=== PATIENT | male | born 1960 | race Caucasian/White ===

== ENCOUNTER 2017-10-17 13:11 | Emergency (ER) | payer MEDICARE ==
--- NOTE | 2017-10-17 13:45 | ED ---
Lower Extremity Injury HPI - General Chief Complaint: Extremity Injury, Lower Stated Complaint: Ankle pain Time Seen by Provider: 10/17/17 13:31 Source: RN notes reviewed, old records reviewed - History of Present Illness Initial Comments: This patient is a 57-year-old male presents emergency department today chief complaint of continued swelling in his right ankle. Patient reports that he tripped and fell approximately a week ago. He has a right knee replacement, he reports that his knee buckled, causing him to fall. He states that he rolled his ankle at that time. Patient reports that since that time he's been having some pain with ambulation, is concerned because the swelling is continue to persist in his ankle and foot. He reports he has range of motion of the toes. He denies any posterior calf pain. Denies any specific knee pain at this time. Patient denies any fever or chills, chest pain, shortness breath, nausea, vomiting. Patient has a history of sleep apnea, Diabetes, hypertension, hyperlipidemia, neuropathy. Patient reports he has not been using his sleep apnea machine for the past few months. He does report she's been somewhat fatigued since he has not been using it. - Related Data Home Medications Medication Instructions Recorded Confirmed Cyclobenzaprine [Flexeril] 10 mg pe PO HS 10/11/14 10/17/17 Glimepiride [Amaryl] 2 mg PO BID 10/11/14 10/17/17 amLODIPine [Norvasc] 5 mg PO BID 10/11/14 10/17/17 metFORMIN HCL [Glucophage] 500 mg PO BID 10/11/14 10/17/17 traMADol HCL [traMADol HCL ER] 100 mg PO BID 10/11/14 10/17/17 Cholecalciferol [Vitamin D3] 2,000 unit PO DAILY 10/21/16 10/17/17 Hydrochlorothiazide 25 mg PO QAM 10/21/16 10/17/17 Simvastatin [Zocor] 20 mg PO HS 10/21/16 10/17/17 Gabapentin [Neurontin] 400 mg PO BID 10/23/16 10/17/17 Naproxen [Naprosyn] 500 mg PO DAILY 10/17/17 10/17/17 Previous Rx's Medication Instructions Recorded Ibuprofen [Motrin] 600 mg PO Q8HR PRN #12 tab 10/17/17 Allergies Allergy/AdvReac Type Severity Reaction Status Date / Time No Known Allergies Allergy Verified 10/23/16 10:04 Review of Systems ROS Statement: Those systems with pertinent positive or pertinent negative responses have been documented in the HPI. ROS Other: All systems not noted in ROS Statement are negative. Past Medical History Past Medical History: Chest Pain / Angina, Diabetes Mellitus, Hyperlipidemia, Hypertension, Osteoarthritis (OA), Pneumonia, Sleep Apnea/CPAP/BIPAP Additional Past Medical History / Comment(s): DM 2, History of Any Multi-Drug Resistant Organisms: None Reported Past Surgical History: Hernia Repair, Joint Replacement, Orthopedic Surgery Additional Past Surgical History / Comment(s): surgery on left hand pointer finger; R knee replacement Past Anesthesia/Blood Transfusion Reactions: No Reported Reaction Past Psychological History: No Psychological Hx Reported Smoking Status: Never smoker Past Alcohol Use History: Occasional Past Drug Use History: None Reported - Past Family History Father Family Medical History: AICD/Pacemaker Mother Family Medical History: No Reported History, Renal Disease Brother(s) Family Medical History: No Reported History Sister(s) Family Medical History: No Reported History Son(s) Family Medical History: No Reported History Daughter(s) Family Medical History: No Reported History General Exam - General Exam Comments Initial Comments: This is a 57-year-old male. No distress. General appearance: alert, in no apparent distress Head exam: Present: atraumatic, normocephalic, normal inspection Eye exam: Present: normal appearance, PERRL, EOMI. Absent: scleral icterus, conjunctival injection, periorbital swelling ENT exam: Present: normal exam, mucous membranes moist Neck exam: Present: normal inspection. Absent: tenderness, meningismus, lymphadenopathy Respiratory exam: Present: normal lung sounds bilaterally Cardiovascular Exam: Present: regular rate, normal rhythm, normal heart sounds. Absent: systolic murmur, diastolic murmur, rubs, gallop, clicks GI/Abdominal exam: Present: soft, normal bowel sounds. Absent: distended, tenderness, guarding, rebound, rigid Right Lower Leg exam: Present: normal inspection, full ROM Ankle exam: Present: full ROM (pain with inversion and eversion of the ankle. Patient does have some swelling noted.), swelling. Absent: normal inspection Foot/Toe exam: Present: normal inspection, full ROM Neurovascular tendon exam: Present: no vascular compromise Gait: observed and normal Back exam: Present: normal inspection Neurological exam: Present: alert, oriented X3, CN II-XII intact Course Vital Signs 10/17/17 13:49 Temperature 97.9 F Pulse Rate 88 Respiratory 18 Rate Blood Pressure 130/76 O2 Sat by Pulse 96 Oximetry Procedures - Orthopedic Splinting/Casting Injury #1 Side: right Lower Extremity Injury Location: ankle Lower Extremity Immobilizer: AirCast, Carl wrap Other Orthopedic Equipment: crutches Medical Decision Making - Medical Decision Making This patient is a 57-year-old male presents emergency department today chief complaint of continued swelling in his right ankle. Patient reports that he tripped and fell approximately a week ago. He has a right knee replacement, he reports that his knee buckled, causing him to fall. He states that he rolled his ankle at that time. Patient reports that since that time he's been having some pain with ambulation, is concerned because the swelling is continue to persist in his ankle and foot. He reports he has range of motion of the toes. patient has full range of motion of the toes, ankle and foot. He did have some tenderness over the lateral malleolus. Patient's lab and x-ray was reviewed and shows no acute abnormalities. Evidence of lateral foot swelling. Also evidence of peripheral 2-year-old disease. I did palpate a dorsalis pedis pulse. At this time I'll treat the patient for severe ankle sprain possible tear. Patient will be discharged with a temperature medication crutches. Discussed risks and ice and elevate the area. Discussed following up with primary care provider regards to his chronic fatigue issues. Patient agrees treatment plan will comply. Return parameters were discussed. - Radiology Data Radiology results: report reviewed Generalized right ankle soft tissue swelling, greatest laterally. No acute fracture dislocation of the right foot or ankle. Hindfoot and midfoot and forefoot arthropathy. Moderate Achilles and plantar and apply heel spurs. Peripheral arterial sclerosis. Present underlying peripheral arterial disease. Disposition Clinical Impression: Sprain of right ankle Disposition: HOME SELF-CARE Condition: Good Instructions: Ankle Sprain (ED) Additional Instructions: patient must rest, ice, and elevate extremity. Ambulate with crutches. Follow- up with autism motor specialist. Ulcerative appointment with her primary care provider insulin specialist regards to her sleep seen. Return to emergency department if any alarming signs or symptoms occur. Prescriptions: Ibuprofen [Motrin] 600 mg PO Q8HR PRN #12 tab PRN Reason: Pain Referrals: Colin Emery MD [Primary Care Provider] - 1-2 days Time of Disposition: 14:26
[2017-10-17 14:06] VITALS: BP 130/76; PULSE 88; RESP 18; TEMP 97.9
--- NOTE | 2017-10-17 14:17 | XR ---
EXAMINATION TYPE: XR ankle complete RT, XR foot limited RT DATE OF EXAM: 10/17/2017 CLINICAL HISTORY: Fall 9 days ago with subsequent pain and swelling of the right ankle and foot. TECHNIQUE: Frontal, lateral and oblique images of the right ankle and foot are obtained. COMPARISON: None. FINDINGS: There is no acute fracture/dislocation evident in the right ankle. The ankle mortise appe ars within normal limits. Small anterior and posterior osteophytes are seen of the distal tibia on t he lateral image. Mild osteophytic spurring is also seen at the talonavicular joint dorsally. Moderat e plantar and Achilles enthesophytes are seen. Mild soft tissue swelling of the ankle joint is most p ronounced laterally. Incidentally noted is moderate small vessel atherosclerosis of the right ankle/f oot. There is no acute fracture or dislocation evident in the right foot. The joint spaces in the right f oot are preserved. Overlying soft tissue is unremarkable. Accessory ossicle is incidentally noted a djacent to the cuboid bone. Osteophytic spurring is seen at the distal interphalangeal joints and fir st metatarsal phalangeal joint. IMPRESSION: 1. Generalized right ankle soft tissue swelling, greatest laterally, with no acute fracture or disloc ation in the right ankle or foot. 2. Mild hindfoot, midfoot, and forefoot arthropathy. 3. Moderate Achilles and plantar enthesophyte/heel spurs. 4. Peripheral arterial atherosclerosis may represent underlying peripheral arterial disease.
== END 2017-10-17 14:46 | disposition home or self-care (01) ==
LOC: EC 13:11
DX: S93.401A Sprain of unspecified ligament of right ankle, initial encounter (principal); E11.9 Type 2 diabetes mellitus without complications; E78.5 Hyperlipidemia, unspecified; I10 Essential (primary) hypertension; M19.90 Unspecified osteoarthritis, unspecified site; G47.30 Sleep apnea, unspecified; Z99.89 Dependence on other enabling machines and devices; Z79.1 Long term (current) use of non-steroidal anti-inflammatories (NSAID); Z79.84 Long term (current) use of oral hypoglycemic drugs; Z79.899 Other long term (current) drug therapy; Z96.651 Presence of right artificial knee joint; W01.0XXA Fall on same level from slipping, tripping and stumbling without subsequent striking against object, initial encounter
CPT/HCPCS: 73610; 73620; 99284; L4350

== ENCOUNTER → 2020-07-21 | Day surgery (SDC) | payer MEDICARE ==
[2020-07-19 12:01] VITALS: BMI 38.9
[~2020-07-21] MED LIST: ALPRAZolam 0.25 MG TAB PO PRN; ALPRAZolam 0.5 MG TAB PO PRN; ASPIRIN 325 MG TAB PO STA; HEPARIN SODIUM 1,000 UN/ML (10ML VL) IV ONE; HEPARIN SODIUM 1,000 UN/ML (10ML VL) ONE; IOPAMIDOL-370 125ML BTL INJ ONE; LIDOCAINE 1% INJ 10MG/ML (20 ML MDV) ONE; LIDOCAINE 1% INJ 10MG/ML (20 ML MDV) SQ ONE; MIDAZOLAM 2 MG/2 ML VIAL IVP ONE; NITROGLYCERIN SL TABS 0.4 MG TAB SUBLINGUAL PRN; RX INFO: IV CONTRAST WAS GIVEN 1 EACH MISC MISCELLANE PRN; SODIUM CHLORIDE 0.9% 1,000 ML IV ONE; SODIUM CHLORIDE 0.9% 1,000 ML IV SCH; SODIUM CHLORIDE 0.9% 1,000 ML in EMPTY BAG 1 BAG IV ONE; VERAPAMIL 2.5 MG/ML 2 ML AMP ONE; VERAPAMIL SYRINGE (5 MG/10 ML) INTRAARTER ONE
[2020-07-21 10:47] LABS: Glucose,Whole Blood 211 mg/dL (75-99)
[2020-07-21 10:49] VITALS: RESP 16; TEMP 98
[2020-07-21 11:07] LABS: Calcium 9.6 mg/dL (8.4-10.2); Potassium 4.8 mmol/L (3.5-5.1)
[2020-07-21 11:23] LABS: HCT 50.3 % (39.0-53.0); HGB 16.8 gm/dL (13.0-17.5); MCH 31.5 pg (25.0-35.0); MCHC 33.5 g/dL (31.0-37.0); Mean Platelet Volume 7.6; Platelet Count 234 k/uL (150-450); RBC 5.35 m/uL (4.30-5.90); RDW 13.8 % (11.5-15.5)
[2020-07-21 11:43] LABS: Eosinophils # (M) 0.27 k/uL (0-0.7); Lymphocytes # (M) 1.62 k/uL (1.0-4.8); Monocytes # (M) 0.27 k/uL (0-1.0); Neutrophils # (M) 6.84 k/uL (1.3-7.7); Neutrophils % (M) 76 %; Nucleated Red Blood Cells 0 /100 WBC (0-0); Total Cells Counted 100
[2020-07-21 17:42] VITALS: BP 147/73; PULSE 54
--- NOTE | 2020-07-21 20:17 | CC ---
CARDIAC CATHETERIZATION REPORT DATE OF SERVICE: July 21, 2020 PERFORMING PHYSICIAN: Darryn Velazco MD. PROCEDURE PERFORMED: 1. Selective right and left coronary angiogram. 2. Left heart catheterization. INDICATION: This is a 60-year-old gentleman with diabetes and hypertension and dyslipidemia who was going to undergo hip surgery in the next few weeks. He underwent myocardial perfusion imaging stress test and that revealed a large anterior fixed defect with an echocardiogram showing cardiomyopathy with EF between 40-45 percent with anterior wall motion abnormalities concerning for severe underlying coronary artery disease. Given his multiple risk factors and the abnormalities on noninvasive testing, I decided to pursue with a heart catheterization for definitive diagnosis. APPROACH: Right radial artery. COMPLICATION: None. LEVEL OF SEDATION: Moderate with a sedation length of 16 minutes. PROCEDURE DESCRIPTION: After obtaining an informed consent, the patient was brought to the cardiac laboratory machinist. The right radial artery was cannulated using micropuncture technique, the micropuncture wire passed easily. Then, I placed a 6-Kinyarwanda sheath at the right radial artery. I gave the patient 2 mg of verapamil IA and 10,000 units of heparin IV. Subsequently, I did perform selective right and left coronary angiogram with JR4 and JL3.5 catheters. Left heart catheterization was performed using the JL 3.5 catheter which crossed the aortic valve. Then I did pullback across the valve. The procedure was completed without any complications. SELECTIVE CORONARY ANGIOGRAM: 1. The right coronary artery is a large caliber vessel. It is a dominant vessel. The RCA is calcified. The RCA has mild disease only distally. Then bifurcates into PDA and PLV branches. 2. The left main is calcified and with mild disease only. It bifurcates into left circumflex, ramus intermedius, and left anterior descending artery. 3. The left circumflex is a large caliber vessel. The left circumflex is chronically occluded in the midportion. 4. The ramus intermedius is a moderate caliber vessel with mild disease only. 5. The LAD: The LAD is chronically occluded in the proximal to mid portion. The LAD is extremely calcified as well. HEMODYNAMICS: The LVEDP was about 18 mmHg without significant gradient across aortic valve. CONCLUSION: 1. Calcified right and left coronary system. 2. 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 The LAD is extremely calcified. 3. Chronic total occlusion of the proximal to mid left circumflex coronary artery. 4. Elevated left ventricular end-diastolic pressure. POSTPROCEDURE MANAGEMENT: Given the above anatomy and the uncertainty about the viability of the anterior wall, I am going to maximize medical treatment at this point and follow up with the patient in the office. I am going to obtain an MRI to assess for viability in the anterior wall. Further recommendations to follow that test. AIDEE / NOREENN: [id number] /
== END ==
LOC: CATHCVL 10:22
PROVIDERS: ATTEND Internal Medicine Interventional Cardiology
DX: I42.9 Cardiomyopathy, unspecified (principal); I25.10 Atherosclerotic heart disease of native coronary artery without angina pectoris; I25.84 Coronary atherosclerosis due to calcified coronary lesion; I25.82 Chronic total occlusion of coronary artery; E78.00 Pure hypercholesterolemia, unspecified; E11.9 Type 2 diabetes mellitus without complications; I10 Essential (primary) hypertension; E78.49 Other hyperlipidemia; Z79.82 Long term (current) use of aspirin; Z79.899 Other long term (current) drug therapy
CPT/HCPCS: 93458; 80048; 85025; C1769; C1894; J2250; J2001; J1644; Q9967

== ENCOUNTER 2021-10-20 15:34 | Inpatient (IN) | payer MEDICARE ==
[2021-10-20] MEDS ORDERED: SODIUM CHLORIDE 0.9% 1,000 ML IV STA (15:42)
[2021-10-20 15:56] LABS: Glucose,Whole Blood 275 mg/dL (75-99)
--- NOTE | 2021-10-20 16:08 | ED ---
General Adult HPI - General Chief complaint: Weakness Stated complaint: Dizziness,Low BP Time Seen by Provider: 10/20/21 15:42 Source: patient Mode of arrival: ambulatory Limitations: no limitations - History of Present Illness Initial comments: Dictation was produced using [employer] dictation software. please excuse any grammatical, word or spelling errors. Chief Complaint: Patient is 61-year-old male presents to the emergency departm ent for excessive somnolence, low blood pressure History of Present Illness: Patient is a 61-year-old male who has past medical history of chest pain, diabetes, dyslipidemia and hypertension. Patient presents emergency department for low blood pressure. Patient's been feeling lethargic and very sleepy over the last 48 hours. Complains of a mild cramp to his left shoulder they states chronic may be slightly worse. Patient states he's been sleeping a lot over the last 48 hours. He checked his blood pressure today is found to be low with systolics measuring within the 70s and 80s millimeters mercury. Decided come to the emergency department. Patient has no significant pain complaints. He has had some diarrhea. No chest pain. No shortness of breath. Lack of bloody stools. Patient is not taking anticoagulation medications. Medications for diabetes. He is insulin- dependent. The ROS documented in this emergency department record has been reviewed and confirmed by me. Those systems with pertinent positive or negative responses have been documented in the HPI. All other systems are other negative and/or noncontributory. PHYSICAL EXAM: General Impression: Alert and oriented x3, not in acute distress, marshall pale skin HEENT: Normocephalic atraumatic, extra-ocular movements intact, pupils equal and reactive to light bilaterally, mucous membranes moist. Cardiovascular: Heart regular rate and rhythm Chest: Able to complete full sentences, no retractions, no tachypnea Abdomen: abdomen soft, non-tender, non-distended, no organomegaly Musculoskeletal: Pulses present and equal in all extremities, no peripheral edema Motor: no focal deficits noted Neurological: CN II-XII grossly intact, no focal motor or sensory deficits noted Skin: Intact with no visualized rashes Psych: Normal affect and mood ED course: 61-year-old male presents emergency department for low blood pressure. Signs upon arrival shows blood pressure of 88/63, rest of vital signs within acceptable limits. Repeat blood pressures while in trauma bay #1 results with similarly low blood pressure. Chart review was performed. She has history of severe coronary artery disease. It's of the heart are akinetic on echocardiogram. Value by cardiothoracic surgery. Patient had a cardiac catheterization performed on 08/02/2020 showing calcified left coronary system with chronic total occlusion to the mid LAD. Discussed with patient after EMR chart review if he ever had his coronary artery disease managed since last year. He states he hasn't because of some personal issues. still continues to deny chest pain and/or shortness of breath. Putting care bedside ultrasound was attempted however could not get good cardiac views. EKG interpretation: Ventricular rate 69, sinus rhythm,. 176, QRS 112, QTc 467. No [place] prolongation, no QTC prolongation, no ST or T-wave changes noted. Old EKG for comparison. Overall, this EKG is unremarkable Case is discussed with cardiology, Dr. Ku. He evaluated the patient at bedside. He is in agreement that ankle is appropriate to order on a stat basis. Laboratory evaluation obtained. Mild leukocytosis of 13.6 concerning for stress leukocytosis. Coag panel is unremarkable. Metabolic panel is within reasonable limits. Lactic acidosis slightly elevated at 2.3. Troponin 0.028 with a brain natruretic peptide of 1710. Chest x-ray is nonacute. Pending echocardiogram read. Dr. Ku believes that patient has mild heart failure. At this point is unclear what caused the patient's hypotension. His labs seems to be within reasonable limits. His blood pressures improved with fluids. His labs do not suggest that he is significantly dehydrated. His renal markers appear to be not significantly elevated. Reevaluate at bedside at 7:45 PM found to be in stable medical condition. Sitting elderly and has no acute symptoms. Patient continues to deny any chest pain or shortness of breath - Related Data Home Medications Medication Instructions Recorded Confirmed Aspirin [Adult Low Dose Aspirin EC] 81 mg PO DAILY 07/19/20 10/20/21 Baclofen 10 mg PO BID 07/19/20 10/20/21 Ergocalciferol (Vitamin D2) 1,250 mcg PO Q30D 07/19/20 10/20/21 [Vitamin D2 (50,000 Iu)] Gabapentin 600 mg PO BID 07/19/20 10/20/21 Glimepiride [Amaryl] 4 mg PO BID 07/19/20 10/20/21 Hydrochlorothiazide 12.5 mg PO DAILY 07/19/20 10/20/21 [hydroCHLOROthiazide] amLODIPine BESYLATE 5 mg PO DAILY 07/19/20 10/20/21 lisinopriL [Zestril] 5 mg PO DAILY 07/19/20 10/20/21 Atorvastatin Calcium [Lipitor] 40 mg PO DAILY 10/20/21 10/20/21 Cholecalciferol [Vitamin D3 (25 50 mcg PO DAILY 10/20/21 10/20/21 Mcg = 1000 Iu)] Insulin Glargine [Lantus Vial] 24 unit SQ DAILY 10/20/21 10/20/21 Metoprolol Succinate [Toprol XL] 25 mg PO DAILY 10/20/21 10/20/21 Spironolactone [Aldactone] 25 mg PO DAILY 10/20/21 10/20/21 traMADol HCL 100 mg PO TID 10/20/21 10/20/21 Allergies Allergy/AdvReac Type Severity Reaction Status Date / Time No Known Allergies Allergy Verified 10/20/21 16:35 Review of Systems ROS Statement: Those systems with pertinent positive or pertinent negative responses have been documented in the HPI. ROS Other: All systems not noted in ROS Statement are negative. Past Medical History Past Medical History: Chest Pain / Angina, Diabetes Mellitus, Hyperlipidemia, Hypertension, Osteoarthritis (OA), Pneumonia, Sleep Apnea/CPAP/BIPAP Additional Past Medical History / Comment(s): DM 2, History of Any Multi-Drug Resistant Organisms: None Reported Past Surgical History: Hernia Repair, Joint Replacement, Orthopedic Surgery Additional Past Surgical History / Comment(s): surgery on left hand pointer finger; R knee replacement, removal left second toe Past Anesthesia/Blood Transfusion Reactions: No Reported Reaction Past Psychological History: No Psychological Hx Reported Smoking Status: Never smoker Past Alcohol Use History: None Reported Past Drug Use History: None Reported - Past Family History Father Family Medical History: AICD/Pacemaker Mother Family Medical History: No Reported History, Renal Disease Brother(s) Family Medical History: No Reported History Sister(s) Family Medical History: No Reported History Son(s) Family Medical History: No Reported History Daughter(s) Family Medical History: No Reported History General Exam Limitations: no limitations Course Vital Signs 10/20/21 10/20/2110/20/22 15:36 16:15 16:49 Temperature 99.5 F Pulse Rate 74 65 72 Respiratory 16 18 18 Rate Blood Pressure 88/63 86/55 106/62 O2 Sat by Pulse 96 94 L 96 Oximetry 10/20/21 10/20/21 17:45 19:14 Temperature Pulse Rate 56 L 60 Respiratory 16 18 Rate Blood Pressure 97/59 117/67 O2 Sat by Pulse 95 95 Oximetry Medical Decision Making - Lab Data Result diagrams: 10/20/21 16:05 10/20/21 16:05 Lab Results 10/20/21 10/20/21 10/20/21 Range/Units 15:52 16:05 16:05 WBC 13.6 H (3.8-10.6) k/uL RBC 4.70 (4.30-5.90) m/uL Hgb 14.4 (13.0-17.5) gm/dL Hct 44.3 (39.0-53.0) % MCV 94.2 (80.0-100.0) fL MCH 30.6 (25.0-35.0) pg MCHC 32.5 (31.0-37.0) g/dL RDW 13.1 (11.5-15.5) % Plt Count 224 (150-450) k/uL MPV 8.6 Neutrophils % (Manual) 89 % Band Neuts % (Manual) 1 % Lymphocytes % (Manual) 2 % Monocytes % (Manual) 8 % Neutrophils # BOTTLE GAUGER Neutrophils # (Manual) 12.20 H (1.3-7.7) k/uL Lymphocytes # (Manual) 0.27 L (1.0-4.8) k/uL Monocytes # (Manual) 1.09 H (0-1.0) k/uL Nucleated RBCs 0 (0-0) /100 WBC Manual Slide Review Performed RBC Morphology Normal PT 10.8 (9.0-12.0) sec INR 1.0 (<1.2) APTT 23.8 (22.0-30.0) sec Sodium (137-145) mmol/L Potassium (3.5-5.1) mmol/L Chloride (98-107) mmol/L Carbon Dioxide (22-30) mmol/L Anion Gap mmol/L BUN (9-20) mg/dL Creatinine (0.66-1.25) mg/dL Est GFR (CKD-EPI)AfAm (>60 ml/min/1.73 sqM) Est GFR (CKD-EPI)NonAf (>60 ml/min/1.73 sqM) Glucose (74-99) mg/dL POC Glucose (mg/dL) 275 H (75-99) mg/dL POC Glu Body Make Up Artist ID Carrie Greenberg Lactic Ac Sepsis Rflx Plasma Lactic Acid Zackary (0.7-2.0) mmol/L Calcium (8.4-10.2) mg/dL Magnesium (1.6-2.3) mg/dL Total Bilirubin (0.2-1.3) mg/dL AST (17-59) U/L ALT (4-49) U/L Alkaline Phosphatase (38-126) U/L Troponin I (0.000-0.034) ng/mL NT-Pro-B Natriuret Pep pg/mL Total Protein (6.3-8.2) g/dL Albumin (3.5-5.0) g/dL Lipase (23-300) U/L Coronavirus (PCR) (Not Detectd) Blood Type Blood Type Confirm Blood Type Recheck Bld Type Recheck Status Antibody Screen Spec Expiration Date 10/20/21 10/20/21 10/20/21 Range/Units 16:05 16:05 16:05 WBC (3.8-10.6) k/uL RBC (4.30-5.90) m/uL Hgb (13.0-17.5) gm/dL Hct (39.0-53.0) % MCV (80.0-100.0) fL MCH (25.0-35.0) pg MCHC (31.0-37.0) g/dL RDW (11.5-15.5) % Plt Count (150-450) k/uL MPV Neutrophils % (Manual) % Band Neuts % (Manual) % Lymphocytes % (Manual) % Monocytes % (Manual) % Neutrophils # Neutrophils # (Manual) (1.3-7.7) k/uL Lymphocytes # (Manual) (1.0-4.8) k/uL Monocytes # (Manual) (0-1.0) k/uL Nucleated RBCs (0-0) /100 WBC Manual Slide Review RBC Morphology PT (9.0-12.0) sec INR (<1.2) APTT (22.0-30.0) sec Sodium 133 L (137-145) mmol/L Potassium 4.6 (3.5-5.1) mmol/L Chloride 96 L (98-107) mmol/L Carbon Dioxide 24 (22-30) mmol/L Anion Gap 13 mmol/L BUN 22 H (9-20) mg/dL Creatinine 1.61 H (0.66-1.25) mg/dL Est GFR (CKD-EPI)AfAm 54 (>60 ml/min/1.73 sqM) Est GFR (CKD-EPI)NonAf 46 (>60 ml/min/1.73 sqM) Glucose 295 H (74-99) mg/dL POC Glucose (mg/dL) (75-99) mg/dL POC Glu Body Make Up Artist ID Lactic Ac Sepsis Rflx Plasma Lactic Acid Zackary 2.3 H* (0.7-2.0) mmol/L Calcium 9.2 (8.4-10.2) mg/dL Magnesium 1.5 L (1.6-2.3) mg/dL Total Bilirubin 1.1 (0.2-1.3) mg/dL AST 22 (17-59) U/L ALT 19 (4-49) U/L Alkaline Phosphatase 83 (38-126) U/L Troponin I 0.028 (0.000-0.034) ng/mL NT-Pro-B Natriuret Pep pg/mL Total Protein 7.3 (6.3-8.2) g/dL Albumin 3.9 (3.5-5.0) g/dL Lipase 146 (23-300) U/L Coronavirus (PCR) (Not Detectd) Blood Type Blood Type Confirm Blood Type Recheck Bld Type Recheck Status Antibody Screen Spec Expiration Date 10/20/21 10/20/21 10/20/21 Range/Units 16:05 16:05 16:06 WBC (3.8-10.6) k/uL RBC (4.30-5.90) m/uL Hgb (13.0-17.5) gm/dL Hct (39.0-53.0) % MCV (80.0-100.0) fL MCH (25.0-35.0) pg MCHC (31.0-37.0) g/dL RDW (11.5-15.5) % Plt Count (150-450) k/uL MPV Neutrophils % (Manual) % Band Neuts % (Manual) % Lymphocytes % (Manual) % Monocytes % (Manual) % Neutrophils # Neutrophils # (Manual) (1.3-7.7) k/uL Lymphocytes # (Manual) (1.0-4.8) k/uL Monocytes # (Manual) (0-1.0) k/uL Nucleated RBCs (0-0) /100 WBC Manual Slide Review RBC Morphology PT (9.0-12.0) sec INR (<1.2) APTT (22.0-30.0) sec Sodium (137-145) mmol/L Potassium (3.5-5.1) mmol/L Chloride (98-107) mmol/L Carbon Dioxide (22-30) mmol/L Anion Gap mmol/L BUN (9-20) mg/dL Creatinine (0.66-1.25) mg/dL Est GFR (CKD-EPI)AfAm (>60 ml/min/1.73 sqM) Est GFR (CKD-EPI)NonAf (>60 ml/min/1.73 sqM) Glucose (74-99) mg/dL POC Glucose (mg/dL) (75-99) mg/dL POC Glu Body Make Up Artist ID Lactic Ac Sepsis Rflx Plasma Lactic Acid Zackary (0.7-2.0) mmol/L Calcium (8.4-10.2) mg/dL Magnesium (1.6-2.3) mg/dL Total Bilirubin (0.2-1.3) mg/dL AST (17-59) U/L ALT (4-49) U/L Alkaline Phosphatase (38-126) U/L Troponin I (0.000-0.034) ng/mL NT-Pro-B Natriuret Pep 1710 pg/mL Total Protein (6.3-8.2) g/dL Albumin (3.5-5.0) g/dL Lipase (23-300) U/L Coronavirus (PCR) Not Detected (Not Detectd) Blood Type AB Positive Blood Type Confirm Blood Type Recheck No Previous Record Bld Type Recheck Status CABO Indicated Antibody Screen NEGATIVE Spec Expiration Date 10/23/2021230410/20/21 10/20/21 Range/Units 16:10 16:50 WBC (3.8-10.6) k/uL RBC (4.30-5.90) m/uL Hgb (13.0-17.5) gm/dL Hct (39.0-53.0) % MCV (80.0-100.0) fL MCH (25.0-35.0) pg MCHC (31.0-37.0) g/dL RDW (11.5-15.5) % Plt Count (150-450) k/uL MPV Neutrophils % (Manual) % Band Neuts % (Manual) % Lymphocytes % (Manual) % Monocytes % (Manual) % Neutrophils # Neutrophils # (Manual) (1.3-7.7) k/uL Lymphocytes # (Manual) (1.0-4.8) k/uL Monocytes # (Manual) (0-1.0) k/uL Nucleated RBCs (0-0) /100 WBC Manual Slide Review RBC Morphology PT (9.0-12.0) sec INR (<1.2) APTT (22.0-30.0) sec Sodium (137-145) mmol/L Potassium (3.5-5.1) mmol/L Chloride (98-107) mmol/L Carbon Dioxide (22-30) mmol/L Anion Gap mmol/L BUN (9-20) mg/dL Creatinine (0.66-1.25) mg/dL Est GFR (CKD-EPI)AfAm (>60 ml/min/1.73 sqM) Est GFR (CKD-EPI)NonAf (>60 ml/min/1.73 sqM) Glucose (74-99) mg/dL POC Glucose (mg/dL) (75-99) mg/dL POC Glu Body Make Up Artist ID Lactic Ac Sepsis Rflx Y Plasma Lactic Acid Zackary (0.7-2.0) mmol/L Calcium (8.4-10.2) mg/dL Magnesium (1.6-2.3) mg/dL Total Bilirubin (0.2-1.3) mg/dL AST (17-59) U/L ALT (4-49) U/L Alkaline Phosphatase (38-126) U/L Troponin I (0.000-0.034) ng/mL NT-Pro-B Natriuret Pep pg/mL Total Protein (6.3-8.2) g/dL Albumin (3.5-5.0) g/dL Lipase (23-300) U/L Coronavirus (PCR) (Not Detectd) Blood Type Blood Type Confirm AB Positive Blood Type Recheck Bld Type Recheck Status Antibody Screen Spec Expiration Date Critical Care Time Critical Care Time: Yes Total Critical Care Time: 33 Disposition Clinical Impression: Hypotension Disposition: ADMITTED IP TO THIS HOSP Condition: Critical Referrals: Lewis Wing MD [Primary Care Provider] - 1-2 days
[2021-10-20 16:31] LABS: Albumin 3.9 g/dL (3.5-5.0); Calcium 9.2 mg/dL (8.4-10.2); Magnesium 1.5 mg/dL (1.6-2.3); Potassium 4.6 mmol/L (3.5-5.1); Total Bilirubin 1.1 mg/dL (0.2-1.3); Total Protein 7.3 g/dL (6.3-8.2)
[2021-10-20 16:34] LABS: Partial Thromboplastin Time 23.8 sec (22.0-30.0); Prothrombin Time 10.8 sec (9.0-12.0)
[2021-10-20 16:38] LABS: HCT 44.3 % (39.0-53.0); HGB 14.4 gm/dL (13.0-17.5); MCH 30.6 pg (25.0-35.0); MCHC 32.5 g/dL (31.0-37.0); MCV 94.2 fL (80.0-100.0); Mean Platelet Volume 8.6; Platelet Count 224 k/uL (150-450); RDW 13.1 % (11.5-15.5); WBC 13.6 k/uL (3.8-10.6)
[2021-10-20 17:09] LABS: Band Neutrophils % 1 %; Lymphocytes # (M) 0.27 k/uL (1.0-4.8); Monocytes # (M) 1.09 k/uL (0-1.0); Neutrophils % (M) 89 %; Nucleated Red Blood Cells 0 /100 WBC (0-0); Total Cells Counted 100
--- NOTE | 2021-10-20 18:19 | XR ---
EXAMINATION TYPE: XR chest 1V portable DATE OF EXAM: 10/20/2021 6:10 PM COMPARISON: Radiograph 02/22/2013 CLINICAL INDICATION:Male, 61 years old with history of hypotension; , TECHNIQUE: Frontal view of the chest. FINDINGS: Lungs/Pleura: Low lung volumes are present. There is no evidence of pleural effusion, focal consolida tion, or pneumothorax. Pulmonary vascularity: Unremarkable. Heart/mediastinum: Cardiomediastinal silhouette is unremarkable. Musculoskeletal: No acute osseous pathology. IMPRESSION: No acute cardiopulmonary disease/process.
[2021-10-20] MEDS ORDERED: ACETAMINOPHEN TAB 325 MG TAB PO PRN (20:00)
[2021-10-20] MEDS ORDERED: NALOXONE 0.4 MG/ML 1 ML VIAL IV PRN (20:00)
[2021-10-20] MEDS: SODIUM CHLORIDE 0.9% 1,000 ML IV SCH (20:10)
[2021-10-20 23:39] LABS: Appearance,Urine Cloudy (Clear); Bacteria,Urine Rare /hpf; Bilirubin,Urine Negative (Negative); Blood,Urine Trace (Negative); Cellular Casts,Urine 1 /lpf (0); Color,Urine Yellow; Glucose,Urine (UA) 3+ (Negative); Hyaline Casts,Urine 30 /lpf (0-2); Ketones,Urine Negative (Negative); Leukocyte Esterase,Urine Large (Negative); Mucus,Urine Occasional /hpf; Nitrite,Urine Negative (Negative); Protein,Urine Trace (Negative); RBC,Urine 7 /hpf (0-5); Specific Gravity,Urine 1.019 (1.001-1.035); Squamous Epithelial Cell,Urine 1 /hpf (0-4); WBC,Urine 30 /hpf (0-5)
[2021-10-21 10:11] LABS: Glucose,Whole Blood 220 mg/dL (75-99)
[2021-10-21] MEDS: lisinopriL 10 MG TAB PO SCH (11:15)
[2021-10-21] MEDS: INSULIN DETEMIR (LEVEMIR) 100 UNIT/ML SYR SQ SCH (11:18)
[2021-10-21] MEDS: ASPIRIN 81 MG PO SCH (11:19)
[2021-10-21] MEDS: ATORVASTATIN 40 MG TAB PO SCH (11:19)
--- NOTE | 2021-10-21 11:47 | P.HPIM ---
History of Present Illness H&P Date: 10/21/21 Chief Complaint: Hypotension/CAD HISTORY OF PRESENT ILLNESS: This is a 61-year-old male one of my patient with a previous medical history significant for hypertension and hypertensive cardiovascular disease, hyperlipidemia, diabetes mellitus type 2 with hyperglycemia, chronic kidney disease stage IIIA, PAD, diabetic polyneuropathy, coronary artery disease status post left heart catheterization that was done in July 2020 that showed mild disease of the RCA and the chronic totally occluded proximal to mid LAD and chronic totally occluded left circumflex in the mid to distal portion with mild disease of the intermedius, at that time patient was supposed to go pack to have an attempt to open the LAD however the patient did not he has been following with Dr. Velazco on a regular basis, patient presented to the emergency department at [facility] yesterday because of lethargy and not able to do anything over the last 48 hours patient blood pressure was found to be extremely low at home in the low 70s over 40s so he decided to come to the emergency room for evaluation his lactic acid was slightly elevated, his troponin was negative, his EKG showed no new changes, he was slightly dehydrated his urinalysis shows hyaline casts suggestive of dehydration he was started on IV fluid resuscitation the form of normal saline and he was admitted to the hospital for evaluation by cardiology, upon evaluation of the patient there was an infected right big toe callus with bad smell coming out of it along with drainage aerobic and anaerobic culture were obtained, and the patient was started on gentamicin and Zosyn with pharmacy to dose its peak and trough, vascular surgery consultation as well as infectious disease consultation was obtained. REVIEW OF SYSTEMS: Constitutional: No documented fever, no chills, no night sweats. No weight change. positive for weakness, positive for fatigue no lethargy. No daytime sleepiness. HEENT: No headache. No blurred vision or double vision, no loss of vision. No loss of Hearing, no ringing in the ears, no dizziness. No nasal drainage or congestion. No epistaxis. No sore throat. Lungs: No shortness of breath, no cough, no sputum production. No wheezing. Reports dyspnea with activity. Cardiovascular: No chest pain, no lower extremity edema. No palpitations. No paroxysmal nocturnal dyspnea. No orthopnea. No lightheadedness or dizziness. No syncopal episodes. Abdominal: Reports no abdominal pain. No nausea, vomiting. No diarrhea. No constipation. No bloody or tarry stools reports loss of appetite. Genitourinary: No dysuria, increased frequency, urgency. No urinary retention. Musculoskeletal: No myalgias. No muscle weakness, no gait dysfunction, no frequent falls. No back pain. No neck pain. Integumentary: Right big toe infected callus, no lesions. No rash or pruritus. No unusual bruising, change of the right big toenail. Neurologic: No aphasia. No facial droop. No change in mentation. No head injury. No headache. No paralysis. No paresthesia. Psychiatric: No depression. No anxiety. No mood swings. Endocrine: abnormal blood sugars. No weight change. PAST MEDICAL HISTORY: CAD status post left heart catheterization back in July 2020 Hypertension and hypertensive cardiovascular disease. Hyperlipidemia. Diabetes mellitus type 2. Diabetic polyneuropathy. PAD. Chronic kidney disease stage IIIa Osteoarthritis PAST SURGICAL HISTORY: Left second toe amputation Right knee replacement Left index finger surgery SOCIAL HISTORY: Patient denies any history of smoking, no history of drinking or drug use or abuse he lives with his ex-. FAMILY HISTORY: Mother at age of 69 from esophageal stricture was not able to eat much and she lost a lot of weight father at age 71 from coronary artery disease and had history of diabetes as well, patient has 2 brothers one with diabetes mellitus type 2 the other one lives in [place] patient has one sister no major medical problem patient has 2 sons and one of them with Crohn disease together with spine and one daughter no major medical problems. PHYSICAL EXAMINATION: General: 61-year-old male laying down in bed in no distress. HEENT: Head is atraumatic, normocephalic, pupils were equal round reactive to light and recommendation, extraocular muscle movement were intact, sclera nonicteric, conjunctivae were pale, mucous membranes of the mouth are somewhat dry. Neck: Supple, no JVP, normal carotid upstroke bilaterally, no lymphadenopathy. Chest: Decreased breath sounds at the bases, few rhonchi, no expiratory wheezes, no chest wall tenderness, no intercostal retractions. Heart: First heart sound is normal, second heart sounds normal there is no gallop or murmur. Abdomen: Soft, nontender, nondistended, positive bowel sounds. No hepatosplenomegaly Extremities: There is no edema no calf tenderness DP +1 bilaterally, left second toe amputation Neurologic examination: Patient is awake alert and oriented X3, cranial nerves II-12 appear grossly intact, muscle power were 5 out of 5 in upper extremities and 5 out of 5 in bilateral lower extremities, deep tendon reflexes normal bilaterally. ASSESSMENT AND PLAN: 1. Hypotension likely related to dehydration . Start the patient on IV fluid in the form of normal saline 75 mL an hour. The patient blood pressure the next 24 hours, monitor the patient CMP. 2. Acute kidney injury on top of chronic kidney disease stage III. Continue IV fluid resuscitation, repeat CMP in the next 24 hours avoid nephrotoxins. 3. Right big toe infected callus. Obtain aerobic and anaerobic culture start the patient on vancomycin and Zosyn, blood cultures were obtained, vascular surgery consultation as well as infectious disease consultation. 4. Coronary artery disease status post left heart catheterization back in July 2020 that showed chronic totally occluded proximal to mid LAD chronic totally occluded mid total distal LCx mild disease of the intermedius and mild disease of the RCA with heavily calcified vessels. Continue patient on aspirin 81 mg once every day, metoprolol succinate 25 mg orally once every day, atorvastatin 40 mg orally once every day cardiology evaluation is in progress. 5. Hypertension and hypertensive cardiovascular disease. Continue patient on lisinopril 10 mg orally once every day, continue Toprol-XL 25 mg once every day, discontinue amlodipine. 6. Hyperlipidemia. Continue low-cholesterol diet and exercise, continue patient on atorvastatin 40 mg orally once every day monitor lipid panel, LDL 55- 70. 7. Diabetes mellitus type 2. Continue patient on Levemir 26 units at bedtime along with the glimeperide 4 mg orally twice every day, we'll start the patient on sliding scale insulin. 8. Diabetic polyneuropathy. Continue gabapentin 600 mg orally twice every day. 9. Osteoarthritis. Continue tramadol 50 mg orally 3 times every day. 10. PAD. Continue aspirin and atorvastatin for secondary prevention. 11. Admit to inpatient. Estimate a length of stay 2 midnights. 12. Full code Past Medical History Past Medical History: Chest Pain / Angina, Diabetes Mellitus, Hyperlipidemia, Hypertension, Osteoarthritis (OA), Pneumonia, Sleep Apnea/CPAP/BIPAP Additional Past Medical History / Comment(s): DM 2, History of Any Multi-Drug Resistant Organisms: None Reported Past Surgical History: Hernia Repair, Joint Replacement, Orthopedic Surgery Additional Past Surgical History / Comment(s): surgery on left hand pointer finger; R knee replacement, removal left second toe Past Anesthesia/Blood Transfusion Reactions: No Reported Reaction Past Psychological History: No Psychological Hx Reported Smoking Status: Never smoker Past Alcohol Use History: None Reported Past Drug Use History: None Reported - Past Family History Father Family Medical History: AICD/Pacemaker Mother Family Medical History: No Reported History, Renal Disease Brother(s) Family Medical History: No Reported History Sister(s) Family Medical History: No Reported History Son(s) Family Medical History: No Reported History Daughter(s) Family Medical History: No Reported History Medications and Allergies Home Medications Medication Instructions Recorded Confirmed Type Aspirin [Adult Low Dose Aspirin EC] 81 mg PO DAILY 07/19/20 10/20/21 History Baclofen 10 mg PO BID 07/19/20 10/20/21 History Ergocalciferol (Vitamin D2) 1,250 mcg PO Q30D 07/19/20 10/20/21 History [Vitamin D2 (50,000 Iu)] Gabapentin 600 mg PO BID 07/19/20 10/20/21 History Glimepiride [Amaryl] 4 mg PO BID 07/19/20 10/20/21 History Hydrochlorothiazide 12.5 mg PO DAILY 07/19/20 10/20/21 History [hydroCHLOROthiazide] amLODIPine BESYLATE 5 mg PO DAILY 07/19/20 10/20/21 History lisinopriL [Zestril] 5 mg PO DAILY 07/19/20 10/20/21 History Atorvastatin Calcium [Lipitor] 40 mg PO DAILY 10/20/21 10/20/21 History Cholecalciferol [Vitamin D3 (25 50 mcg PO DAILY 10/20/21 10/20/21 History Mcg = 1000 Iu)] Insulin Glargine [Lantus Vial] 24 unit SQ DAILY 10/20/21 10/20/21 History Metoprolol Succinate [Toprol XL] 25 mg PO DAILY 10/20/21 10/20/21 History Spironolactone [Aldactone] 25 mg PO DAILY 10/20/21 10/20/21 History traMADol HCL 100 mg PO TID 10/20/21 10/20/21 History Allergies Allergy/AdvReac Type Severity Reaction Status Date / Time No Known Allergies Allergy Verified 10/20/21 16:35 Physical Exam Vitals: Vital Signs Temp Pulse Resp BP Pulse Ox 10/21/21 06:45 74 22 126/79 97 10/21/21 06:00 98.5 F 75 22 126/79 96 10/21/21 05:00 81 22 126/79 97 10/21/21 04:00 68 22 115/75 97 10/21/21 03:00 98.7 F 63 18 124/64 96 10/21/21 02:00 76 20 126/67 97 10/21/21 00:00 97 20 100/63 97 10/20/21 23:00 95 22 111/65 97 10/20/21 22:00 72 20 111/65 96 10/20/21 21:00 65 20 115/67 97 10/20/21 19:30 20 10/20/21 19:14 60 18 117/67 95 10/20/21 17:45 56 L 16 97/59 95 10/20/21 16:49 72 18 106/62 96 10/20/21 16:15 65 18 86/55 94 L 10/20/21 15:36 99.5 F 74 16 88/63 96 Intake and Output 10/20/21 10/21/21 10/21/21 22:59 06:59 14:59 Other: Weight 136.078 kg Results CBC & Chem 7: 10/22/21 07:12 10/22/21 07:12 Labs: Abnormal Lab Results - Last 24 Hours (Table) 10/20/21 10/20/21 10/20/21 Range/Units 15:52 16:05 16:05 WBC 13.6 H (3.8-10.6) k/uL Neutrophils # (Manual) 12.20 H (1.3-7.7) k/uL Lymphocytes # (Manual) 0.27 L (1.0-4.8) k/uL Monocytes # (Manual) 1.09 H (0-1.0) k/uL Sodium 133 L (137-145) mmol/L Chloride 96 L (98-107) mmol/L BUN 22 H (9-20) mg/dL Creatinine 1.61 H (0.66-1.25) mg/dL Glucose 295 H (74-99) mg/dL POC Glucose (mg/dL) 275 H (75-99) mg/dL Plasma Lactic Acid Zackary (0.7-2.0) mmol/L Magnesium 1.5 L (1.6-2.3) mg/dL Urine Protein (Negative) Urine Glucose (UA) (Negative) Urine Blood (Negative) Ur Leukocyte Esterase (Negative) Urine RBC (0-5) /hpf Urine WBC (0-5) /hpf Urine Bacteria (None) /hpf Hyaline Casts (0-2) /lpf Urine Mucus (None) /hpf 10/20/21 10/20/21 Range/Units 16:05 23:05 WBC (3.8-10.6) k/uL Neutrophils # (Manual) (1.3-7.7) k/uL Lymphocytes # (Manual) (1.0-4.8) k/uL Monocytes # (Manual) (0-1.0) k/uL Sodium (137-145) mmol/L Chloride (98-107) mmol/L BUN (9-20) mg/dL Creatinine (0.66-1.25) mg/dL Glucose (74-99) mg/dL POC Glucose (mg/dL) (75-99) mg/dL Plasma Lactic Acid Zackary 2.3 H* (0.7-2.0) mmol/L Magnesium (1.6-2.3) mg/dL Urine Protein Trace H (Negative) Urine Glucose (UA) 3+ H (Negative) Urine Blood Trace H (Negative) Ur Leukocyte Esterase Large H (Negative) Urine RBC 7 H (0-5) /hpf Urine WBC 30 H (0-5) /hpf Urine Bacteria Rare H (None) /hpf Hyaline Casts 30 H (0-2) /lpf Urine Mucus Occasional H (None) /hpf
--- NOTE | 2021-10-21 12:17 | XR ---
EXAMINATION TYPE: XR foot complete RT DATE OF EXAM: 10/21/2021 COMPARISON: NONE HISTORY: Swelling of the right first digit TECHNIQUE: Three views are submitted. FINDINGS: Extensive soft tissue irregularity involving the distal margin first digit. Previous surgery involvin g the second digit arthropathy involving all MCP joints. There is no acute fracture or dislocation. N o destructive changes are seen. Calcaneal spurs are noted. IMPRESSION: 1. Soft tissue edema and possible ulceration adjacent to the distal margin first digit. No destructiv e changes are seen although there is slight loss of cortex of the distal phalanx recommend triple pha se bone scan to assess for osteomyelitis.
--- NOTE | 2021-10-21 12:18 | XR ---
EXAMINATION TYPE: XR shoulder complete LT DATE OF EXAM: 10/21/2021 COMPARISON: NONE HISTORY: Pain TECHNIQUE: Three views are submitted. FINDINGS: The osseous structures are intact. There is no acute fracture or dislocation. AC joint arthropathy. IMPRESSION: 1. AC joint arthropathy
[2021-10-21 12:55] LABS: Glucose,Whole Blood 269 mg/dL (75-99)
[2021-10-21] MEDS: INSULIN ASPART (NovoLOG) 100 UNIT/ML VIAL SQ SCH ×2 (12:55→18:28)
[2021-10-21] MEDS ORDERED: VANCOMYCIN 2,500 MG in SODIUM CHLORIDE 0.9% 500 ML 500 ML IVPB ONE (13:00)
--- NOTE | 2021-10-21 13:04 | P.CRDCN ---
History of Present Illness Consult date: 10/21/21 History of present illness: This is Tucker Johnson NP dictating a consult on this patient on behalf of Dr. Ku. The patient was interviewed and examined. HPI: Patient is a pleasant 61 year old male who initially presented to the hospital with weakness and low blood pressure. Patient states that he was at home over the last couple of days, and noticed that he was very tired and sleeping alot. He checked his blood pressure at home and noted it was in the 80's/40's. After a couple of days of this he felt he should get checked out and so presented to the emergency department. ER found no EKG changes, Troponins are negative. He does have an elevated white count, and states he has a callus on his right foot that is being treated. He is diabetic. He also has a past medical history includes chest pain, hyperlipidemia, hypertension, osteoporosis, pneumonia, sleep apnea. He has a past surgical history that includes left hand pointer finger repair, right knee replacement, and left second toe amputation. He reports that he is a never smoker, and denies current alcohol or illicit substance use. This morning in the ED his blood pressure is within normal limits. He has not received any of his medications since yesterday. ROS: [Reports chills, otherwise no fever or rigors] [no cough, phlegm, or expectoration] [no nausea, vomiting, or diarrhea] [no hematuria, dysuria] [no musculoskelatal complaints] [no strokes or seizures] [no skin lesions] EXAMINATION: GENERAL: Well-appearing, well-nourished and in no acute distress. NECK: Supple without JVD or thyromegaly. LUNGS: Breath sounds clear to auscultation bilaterally. Respiration equal and unlabored. No wheezes, rales or rhonchi. HEART: Regular rate and rhythm without murmurs, rubs or gallops. S1 and S2 heard. EXTREMITIES: Normal range of motion, no edema. No clubbing or cyanosis. Ida pheral pulses intact and strong. REVIEW OF LABS, ECG & MEDICAL DATA: LABS: White count 13.6, hemoglobin 14.4, platelets 224, sodium 133, potassium 4.6, B1 22, creatinine 1.61, magnesium 1.5, troponin 0.028, BNP 1710 EKG: Sinus rhythm, no ST or T wave changes IMAGING: Chest x-ray dated 10/20/2021 shows no acute cardiopulmonary disease/process VITALS: Temp 98.5, pulse 89, respirations 18, blood pressure 113/66, O2 saturation 97% on room air IMPRESSION: Hypotension secondary to medications Diabetes PLAN: Increase Lisinopril to 10mg daily Stop HCTZ and Amlodipine Monitor B/P Thank you for the consult and allowing us to participate in the care of this patient. The patient has been seen and evaluated. Plan of care has been reviewed and agreed upon by Dr. Ku. Past Medical History Past Medical History: Chest Pain / Angina, Diabetes Mellitus, Hyperlipidemia, Hypertension, Osteoarthritis (OA), Pneumonia, Sleep Apnea/CPAP/BIPAP Additional Past Medical History / Comment(s): DM 2, History of Any Multi-Drug Resistant Organisms: None Reported Past Surgical History: Hernia Repair, Joint Replacement, Orthopedic Surgery Additional Past Surgical History / Comment(s): surgery on left hand pointer finger; R knee replacement, removal left second toe Past Anesthesia/Blood Transfusion Reactions: No Reported Reaction Past Psychological History: No Psychological Hx Reported Smoking Status: Never smoker Past Alcohol Use History: None Reported Past Drug Use History: None Reported - Past Family History Father Family Medical History: AICD/Pacemaker Mother Family Medical History: No Reported History, Renal Disease Brother(s) Family Medical History: No Reported History Sister(s) Family Medical History: No Reported History Son(s) Family Medical History: No Reported History Daughter(s) Family Medical History: No Reported History Medications and Allergies Home Medications Medication Instructions Recorded Confirmed Type Aspirin [Adult Low Dose Aspirin EC] 81 mg PO DAILY 07/19/20 10/20/21 History Baclofen 10 mg PO BID 07/19/20 10/20/21 History Ergocalciferol (Vitamin D2) 1,250 mcg PO Q30D 07/19/20 10/20/21 History [Vitamin D2 (50,000 Iu)] Gabapentin 600 mg PO BID 07/19/20 10/20/21 History Glimepiride [Amaryl] 4 mg PO BID 07/19/20 10/20/21 History Hydrochlorothiazide 12.5 mg PO DAILY 07/19/20 10/20/21 History [hydroCHLOROthiazide] amLODIPine BESYLATE 5 mg PO DAILY 07/19/20 10/20/21 History lisinopriL [Zestril] 5 mg PO DAILY 07/19/20 10/20/21 History Atorvastatin Calcium [Lipitor] 40 mg PO DAILY 10/20/21 10/20/21 History Cholecalciferol [Vitamin D3 (25 50 mcg PO DAILY 10/20/21 10/20/21 History Mcg = 1000 Iu)] Insulin Glargine [Lantus Vial] 24 unit SQ DAILY 10/20/21 10/20/21 History Metoprolol Succinate [Toprol XL] 25 mg PO DAILY 10/20/21 10/20/21 History Spironolactone [Aldactone] 25 mg PO DAILY 10/20/21 10/20/21 History traMADol HCL 100 mg PO TID 10/20/21 10/20/21 History Allergies Allergy/AdvReac Type Severity Reaction Status Date / Time No Known Allergies Allergy Verified 10/20/21 16:35 Physical Exam Vitals: Vital Signs Temp Pulse Resp BP Pulse Ox 10/21/21 06:45 74 22 126/79 97 10/21/21 06:00 98.5 F 75 22 126/79 96 10/21/21 05:00 81 22 126/79 97 10/21/21 04:00 68 22 115/75 97 10/21/21 03:00 98.7 F 63 18 124/64 96 10/21/21 02:00 76 20 126/67 97 10/21/21 00:00 97 20 100/63 97 10/20/21 23:00 95 22 111/65 97 10/20/21 22:00 72 20 111/65 96 10/20/21 21:00 65 20 115/67 97 10/20/21 19:30 20 10/20/21 19:14 60 18 117/67 95 10/20/21 17:45 56 L 16 97/59 95 10/20/21 16:49 72 18 106/62 96 10/20/21 16:15 65 18 86/55 94 L 10/20/21 15:36 99.5 F 74 16 88/63 96 Intake and Output 10/20/21 10/21/21 10/21/21 22:59 06:59 14:59 Other: Weight 136.078 kg Results 10/20/21 16:05 10/20/21 16:05 Cardiac Enzymes 10/20/21 10/20/21 Range/Units 16:05 16:05 AST 22 (17-59) U/L Troponin I 0.028 (0.000-0.034) ng/mL Coagulation 10/20/21 Range/Units 16:05 PT 10.8 (9.0-12.0) sec APTT 23.8 (22.0-30.0) sec CBC 10/20/21 Range/Units 16:05 WBC 13.6 H (3.8-10.6) k/uL RBC 4.70 (4.30-5.90) m/uL Hgb 14.4 (13.0-17.5) gm/dL Hct 44.3 (39.0-53.0) % Plt Count 224 (150-450) k/uL Comprehensive Metabolic Panel 10/20/21 Range/Units 16:05 Sodium 133 L (137-145) mmol/L Potassium 4.6 (3.5-5.1) mmol/L Chloride 96 L (98-107) mmol/L Carbon Dioxide 24 (22-30) mmol/L BUN 22 H (9-20) mg/dL Creatinine 1.61 H (0.66-1.25) mg/dL Glucose 295 H (74-99) mg/dL Calcium 9.2 (8.4-10.2) mg/dL AST 22 (17-59) U/L ALT 19 (4-49) U/L Alkaline Phosphatase 83 (38-126) U/L Total Protein 7.3 (6.3-8.2) g/dL Albumin 3.9 (3.5-5.0) g/dL Current Medications Generic Name Dose Route Start Last Admin Trade Name Freq PRN Reason Stop Dose Admin Acetaminophen 650 mg 10/20/21 20:00 Acetaminophen Tab 325 Mg Tab PO Q6HR PRN Mild Pain or Fever > 100.5 Sodium Chloride 1,000 mls @ 75 mls/hr 10/20/21 20:00 10/20/21 20:10 Saline 0.9% IV 75 mls/hr .[id number] CAMILLE Administration Lisinopril 10 mg 10/21/21 09:00 Lisinopril 10 Mg Tab PO DAILY CAMILLE Naloxone HCl 0.2 mg 10/20/21 20:00 Naloxone 0.4 Mg/Ml 1 Ml Vial IV Q2M PRN Opioid Reversal Intake and Output 10/20/21 10/21/21 10/21/21 22:59 06:59 14:59 Other: Weight 136.078 kg 10/20/21 16:05 10/20/21 16:05
[2021-10-21] MEDS: PIPERACILLIN-TAZOBACTAM 3.375 GM in SODIUM CHLORIDE 0.9% 100 ML IVPB SCH ×2 (13:28→21:18)
[2021-10-21 18:23] LABS: Glucose,Whole Blood 213 mg/dL (75-99)
[2021-10-21] MEDS: traMADol 50 MG TAB PO SCH ×2 (18:27→21:59)
--- NOTE | 2021-10-21 19:01 | CONS ---
DATE OF CONSULTATION: 10/22/2021 This is a 61-year-old gentleman known to me from the past. He had a right foot second toe amputation done about 2 years ago by me. He came in with a history of callus formation on the right foot big toe. He was under the care of a lifter. MEDICAL HISTORY: History of diabetes, peripheral vascular disease. Surgically, patient had right foot second toe amputation done in the past. On examination, neck is supple. Chest is clear on auscultation. First and second sounds normal. Abdomen is soft, nontender. Vascular examination: Brachial, radial and femoral pulses present. PT and TB not palpable. The big toe has a callus formation and some cellulitis noted on the dorsal aspect of the foot. PLAN: We will continue with IV antibiotic, local care and possible amputation. Will follow with you. AIDEE / NOREENN: [id number] / MTDD
[2021-10-21] MEDS: BACLOFEN 10 MG TAB PO SCH (21:59)
[2021-10-21] MEDS: GABAPENTIN 300 MG CAP PO SCH (21:59)
[2021-10-21] MEDS: GLIMEPIRIDE 4 MG TAB PO SCH (22:00)
[2021-10-21] MEDS: HEPARIN SODIUM,PORCINE/PF 5,000 UNIT/0.5 ML SYRINGE SQ SCH (22:05)
--- NOTE | 2021-10-21 22:53 | P.CONS ---
History of Present Illness - Reason for Consult Consult date: 10/21/21 right diabetic foot infection Requesting physician: Lewis Wing - Chief Complaint weakenss and low BP x 1 day - History of Present Illness History of present illness : Patient is 61-year male with a past medical history significant for diabetes mellitus also with a history of hyperlipidemia coronary artery disease peripheral arterial disease patient presented to [facility] yesterday afternoon for evaluation of weakness lethargy and apparently did have a lobe blood pressure of 70 systolic patient also has been dealing with the nonhealing wound to the right big toe that apparently has been going on for the last few days patient apparently has been 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 for a nonhealing callus to the right big toe patient did have diabetic neuropathy hands denies significant pain however did have some pressure with associated swelling redness and foul-smelling diminished that been getting worse for the last few days patient on arrival to the ER did have low-grade fever of 99.5 F patient did have vitamin of 13.6 with a left shift he did have elevated BUN and creatinine likely this was 2.3 limits of the normal urine was significantly positive ornelas PCR was negative blood to look for culture hyperlipidemia currently pending chest x-ray no acute cardiopulmonary process patient did have x-ray of the foot soft tissue edema and possible ulceration adjacent to the distal margin of the fourth digit and no destructive changes were seen patient was started on Zosyn and vancomycin infectious disease was consulted for further management of antibiotic therapy patient has been evaluated by vascular surgery and plan is for possible amp utation Review of system: CONSTITUTIONAL: Positive for weakness denies high-grade fever. EYES: No complaint. ENT: No complaint. RESPIRATORY: No complaint. CARDIOVASCULAR: No complaint. GENITOURINARY: No complaint. GASTROINTESTINAL: As per history of present illness. MUSCULOSKELETAL: As per history of present illness. INTEGUMENTARY: No complaint. PSYCHOLOGIC: No complaint. ENDOCRINE: No complaint. NEUROLOGIC: No complaint. Past medical history : Reviewed, documented below Past surgical history : Reviewed, documented below Social history: Reviewed, documented below Medications: Reviewed, as documented below EXAMINATION: Vital sigans= Reviewed and documented below GENERAL DESCRIPTION: Middle-aged male lying in bed, no distress. No tachypnea or accessory muscle of respiration use. HEENT: Shows Pallor , no scleral icterus. Oral mucous membrane is dry. NECK: Trachea central, no thyromegaly. LUNGS: Unlabored breathing. Clear to auscultation anteriorly. No wheeze or crackle. HEART: S1, S2, regular rate and rhythm. ABDOMEN: Soft, no tenderness , guarding or rigidity EXTREMITIES: Significant swelling redness and discoloration of the right big toe with foul-smelling drainage. SKIN: No rash, no masses palpable. NEUROLOGICAL: The patient is awake, alert, oriented x3, mood and affect normal. LABS AND RADIOLOGY: Reviewed results see below Assessment : 1-Patient presented to hospital with hypotension and weakness in this patient source is likely right diabetic foot infection with significant swelling redness and foul-smelling drainage we will need to cover for the polymi crobial yosvany usually associated with this type of infection 2-patient with diabetes mellitus and insufficiency and high risk of nephrotoxicity from vancomycin and Zosyn Plan: 1-vancomycin pharmacy to dose with a target trough of 15 while watching kidney function and Vanco trough closely. 2-discontinue Zosyn decrease risk of nephrotoxicity 3-add Unasyn 3 g every 6 hours We will follow on clinical condition and cultures to further adjust medication if needed Thank you for this consultation we will follow the patient along with you Past Medical History Past Medical History: Chest Pain / Angina, Diabetes Mellitus, Hyperlipidemia, Hypertension, Osteoarthritis (OA), Pneumonia, Sleep Apnea/CPAP/BIPAP Additional Past Medical History / Comment(s): DM 2, History of Any Multi-Drug Resistant Organisms: None Reported Past Surgical History: Hernia Repair, Joint Replacement, Orthopedic Surgery Additional Past Surgical History / Comment(s): surgery on left hand pointer finger; R knee replacement, removal left second toe Past Anesthesia/Blood Transfusion Reactions: No Reported Reaction Past Psychological History: No Psychological Hx Reported Smoking Status: Never smoker Past Alcohol Use History: None Reported Past Drug Use History: None Reported - Past Family History Father Family Medical History: AICD/Pacemaker Mother Family Medical History: No Reported History, Renal Disease Brother(s) Family Medical History: No Reported History Sister(s) Family Medical History: No Reported History Son(s) Family Medical History: No Reported History Daughter(s) Family Medical History: No Reported History Medications and Allergies Home Medications Medication Instructions Recorded Confirmed Type Aspirin [Adult Low Dose Aspirin EC] 81 mg PO DAILY 07/19/20 10/20/21 History Baclofen 10 mg PO BID 07/19/20 10/20/21 History Ergocalciferol (Vitamin D2) 1,250 mcg PO Q30D 07/19/20 10/20/21 History [Vitamin D2 (50,000 Iu)] Gabapentin 600 mg PO BID 07/19/20 10/20/21 History Glimepiride [Amaryl] 4 mg PO BID 07/19/20 10/20/21 History Hydrochlorothiazide 12.5 mg PO DAILY 07/19/20 10/20/21 History [hydroCHLOROthiazide] amLODIPine BESYLATE 5 mg PO DAILY 07/19/20 10/20/21 History lisinopriL [Zestril] 5 mg PO DAILY 07/19/20 10/20/21 History Atorvastatin Calcium [Lipitor] 40 mg PO DAILY 10/20/21 10/20/21 History Cholecalciferol [Vitamin D3 (25 50 mcg PO DAILY 10/20/21 10/20/21 History Mcg = 1000 Iu)] Insulin Glargine [Lantus Vial] 24 unit SQ DAILY 10/20/21 10/20/21 History Metoprolol Succinate [Toprol XL] 25 mg PO DAILY 10/20/21 10/20/21 History Spironolactone [Aldactone] 25 mg PO DAILY 10/20/21 10/20/21 History traMADol HCL 100 mg PO TID 10/20/21 10/20/21 History Allergies Allergy/AdvReac Type Severity Reaction Status Date / Time No Known Allergies Allergy Verified 10/20/21 16:35 Physical Exam Vitals: Vital Signs Temp Pulse Resp BP Pulse Ox 10/21/21 09:00 89 18 113/66 97 10/21/21 06:45 74 22 126/79 97 10/21/21 06:00 98.5 F 75 22 126/79 96 10/21/21 05:00 81 22 126/79 97 10/21/21 04:00 68 22 115/75 97 10/21/21 03:00 98.7 F 63 18 124/64 96 10/21/21 02:00 76 20 126/67 97 10/21/21 00:00 97 20 100/63 97 10/20/21 23:00 95 22 111/65 97 10/20/21 22:00 72 20 111/65 96 10/20/21 21:00 65 20 115/67 97 10/20/21 19:30 20 10/20/21 19:14 60 18 117/67 95 10/20/21 17:45 56 L 16 97/59 95 10/20/21 16:49 72 18 106/62 96 10/20/21 16:15 65 18 86/55 94 L 10/20/21 15:36 99.5 F 74 16 88/63 96 Intake and Output 10/20/21 10/21/21 10/21/21 22:59 06:59 14:59 Other: Weight 136.078 kg Results CBC & Chem 7: 10/20/21 16:05 10/20/21 16:05 Labs: Abnormal Lab Results - Last 24 Hours (Table) 10/20/21 10/20/21 10/20/21 Range/Units 15:52 16:05 16:05 WBC 13.6 H (3.8-10.6) k/uL Neutrophils # (Manual) 12.20 H (1.3-7.7) k/uL Lymphocytes # (Manual) 0.27 L (1.0-4.8) k/uL Monocytes # (Manual) 1.09 H (0-1.0) k/uL Sodium 133 L (137-145) mmol/L Chloride 96 L (98-107) mmol/L BUN 22 H (9-20) mg/dL Creatinine 1.61 H (0.66-1.25) mg/dL Glucose 295 H (74-99) mg/dL POC Glucose (mg/dL) 275 H (75-99) mg/dL Plasma Lactic Acid Zackary (0.7-2.0) mmol/L Magnesium 1.5 L (1.6-2.3) mg/dL C-Reactive Protein (<1.0) mg/dL Urine Protein (Negative) Urine Glucose (UA) (Negative) Urine Blood (Negative) Ur Leukocyte Esterase (Negative) Urine RBC (0-5) /hpf Urine WBC (0-5) /hpf Urine Bacteria (None) /hpf Hyaline Casts (0-2) /lpf Urine Mucus (None) /hpf 10/20/21 10/20/21 10/21/21 Range/Units 16:05 23:05 10:10 WBC (3.8-10.6) k/uL Neutrophils # (Manual) (1.3-7.7) k/uL Lymphocytes # (Manual) (1.0-4.8) k/uL Monocytes # (Manual) (0-1.0) k/uL Sodium (137-145) mmol/L Chloride (98-107) mmol/L BUN (9-20) mg/dL Creatinine (0.66-1.25) mg/dL Glucose (74-99) mg/dL POC Glucose (mg/dL) 220 H (75-99) mg/dL Plasma Lactic Acid Zackary 2.3 H* (0.7-2.0) mmol/L Magnesium (1.6-2.3) mg/dL C-Reactive Protein (<1.0) mg/dL Urine Protein Trace H (Negative) Urine Glucose (UA) 3+ H (Negative) Urine Blood Trace H (Negative) Ur Leukocyte Esterase Large H (Negative) Urine RBC 7 H (0-5) /hpf Urine WBC 30 H (0-5) /hpf Urine Bacteria Rare H (None) /hpf Hyaline Casts 30 H (0-2) /lpf Urine Mucus Occasional H (None) /hpf 10/21/21 10/21/21 Range/Units 12:24 12:54 WBC (3.8-10.6) k/uL Neutrophils # (Manual) (1.3-7.7) k/uL Lymphocytes # (Manual) (1.0-4.8) k/uL Monocytes # (Manual) (0-1.0) k/uL Sodium (137-145) mmol/L Chloride (98-107) mmol/L BUN (9-20) mg/dL Creatinine (0.66-1.25) mg/dL Glucose (74-99) mg/dL POC Glucose (mg/dL) 269 H (75-99) mg/dL Plasma Lactic Acid Zackary (0.7-2.0) mmol/L Magnesium (1.6-2.3) mg/dL C-Reactive Protein 17.2 H (<1.0) mg/dL Urine Protein (Negative) Urine Glucose (UA) (Negative) Urine Blood (Negative) Ur Leukocyte Esterase (Negative) Urine RBC (0-5) /hpf Urine WBC (0-5) /hpf Urine Bacteria (None) /hpf Hyaline Casts (0-2) /lpf Urine Mucus (None) /hpf Microbiology - Last 24 Hours (Table) 10/20/21 23:05 Urine Culture - Preliminary Urine,Voided
[2021-10-22] MEDS: AMPICILLIN-SULBACTAM 3 GM in SODIUM CHLORIDE 0.9% 100 ML IVPB SCH ×4 (01:23→17:18)
[2021-10-22] MEDS: SODIUM CHLORIDE 0.9% 1,000 ML IV SCH ×3 (02:46→11:09)
[2021-10-22] MEDS: VANCOMYCIN 2,500 MG in SODIUM CHLORIDE 0.9% 500 ML 500 ML IVPB SCH ×2 (03:01→21:25)
[2021-10-22 07:57] LABS: Glucose,Whole Blood 204 mg/dL (75-99)
[2021-10-22] MEDS: CHOLECALCIFEROL 25 MCG (1000 IU) TABLET PO SCH (07:57)
[2021-10-22] MEDS: GABAPENTIN 300 MG CAP PO SCH ×2 (07:58→21:24)
[2021-10-22] MEDS: FAMOTIDINE 20 MG TAB PO SCH (07:58)
[2021-10-22] MEDS: ATORVASTATIN 40 MG TAB PO SCH (07:58)
[2021-10-22] MEDS: BACLOFEN 10 MG TAB PO SCH ×2 (07:58→21:23)
[2021-10-22] MEDS: INSULIN ASPART (NovoLOG) 100 UNIT/ML VIAL SQ SCH ×3 (07:59→17:42)
[2021-10-22] MEDS: GLIMEPIRIDE 4 MG TAB PO SCH ×2 (07:59→21:24)
[2021-10-22] MEDS: lisinopriL 10 MG TAB PO SCH (07:59)
[2021-10-22] MEDS: traMADol 50 MG TAB PO SCH ×3 (07:59→21:23)
[2021-10-22] MEDS: ASPIRIN 81 MG PO SCH (07:59)
[2021-10-22] MEDS: HEPARIN SODIUM,PORCINE/PF 5,000 UNIT/0.5 ML SYRINGE SQ SCH ×2 (08:00→21:24)
[2021-10-22] MEDS ORDERED: METOPROLOL SUCCINATE (ER) 25 MG TAB.ER.24H PO ONE (08:15)
[2021-10-22] MEDS: INSULIN DETEMIR (LEVEMIR) 100 UNIT/ML SYR SQ SCH ×2 (08:33→21:25)
[2021-10-22] MEDS ORDERED: METOPROLOL SUCCINATE (ER) 25 MG TAB.ER.24H PO SCH (09:00)
--- NOTE | 2021-10-22 09:31 | ECHOF ---
Referral Reason:hypotension, history of untreated CAD, heart akine MEASUREMENTS -------- HEIGHT: 182.9 cm WEIGHT: 136.1 kg BP: 97/59 RVIDd: 3.6 cm (< 3.3) IVSd: 1.4 cm (0.6 - 1.1) LVIDd: 4.5 cm (3.9 - 5.3) LVPWd: 1.4 cm (0.6 - 1.1) IVSs: 1.8 cm LVIDs: 3.0 cm LVPWs: 1.7 cm LA Diam: 3.5 cm (2.7 - 3.8) Ao Diam: 4.0 cm (2.0 - 3.7) AV Cusp: 2.2 cm (1.5 - 2.6) MV EXCURSION: 17.701 mm (> 18.000) MV EF SLOPE: 75 mm/s (70 - 150) MV E Yonatan: 0.89 m/s MV DecT: 269 ms MV A Yonatan: 0.73 m/s MV E/A Ratio: 1.23 FINDINGS -------- Sinus rhythm. This was a technically difficult study with suboptimal views. The left ventricular size is normal. There is moderate concentric left ventricular hypertrophy. O verall left ventricular systolic function is mildly impaired with, an EF between 45 %. Apical anter ior LV wall motion is hypokinetic. Apical lateral LV wall motion is hypokinetic. Apical inferio r LV wall motion is hypokinetic. Apical septum LV wall motion is hypokinetic. ?? Takatsubo apical ballooning Syndrome The right ventricle is mildly enlarged. The left atrium is normal in size. The right atrium is normal in size. Interatrial and interventricular septum intact. The aortic valve is trileaflet, and appears structurally normal. No aortic stenosis or regurgitation. Mild mitral annular calcification present. The tricuspid valve appears structurally normal. Unable to estimate RVSP due to inadequate TR jet s pectral doppler profile. The pulmonic valve is normal. The aortic root is dilated measuring 4.0cm. IVC Not well visulized. There is no pericardial effusion. CONCLUSIONS -------- 1. The left ventricular size is normal. 2. There is moderate concentric left ventricular hypertrophy. 3. Overall left ventricular systolic function is mildly impaired with, an EF 45% 4. Apical anterior LV wall motion is hypokinetic. 5. Apical lateral LV wall motion is hypokinetic. 6. Apical inferior LV wall motion is hypokinetic. 7. Apical septum LV wall motion is hypokinetic. 8. The right ventricle is mildly enlarged. 9. The aortic valve is trileaflet, and appears structurally normal. No aortic stenosis or regurgitati on. 10. The aortic root is dilated measuring 4.0cm. 11. There is no pericardial effusion. HOME HEALTH CARE CASE MANAGER: Laurie Valle RDCS
--- NOTE | 2021-10-22 09:37 | P.PN ---
Subjective Progress Note Date: 10/22/21 HISTORY OF PRESENT ILLNESS: This is a 61-year-old male one of my patient with a previous medical history significant for hypertension and hypertensive cardiovascular disease, hyperlipidemia, diabetes mellitus type 2 with hyperglycemia, chronic kidney disease stage IIIA, PAD, diabetic polyneuropathy, coronary artery disease status post left heart catheterization that was done in July 2020 that showed mild disease of the RCA and the chronic totally occluded proximal to mid LAD and chronic totally occluded left circumflex in the mid to distal portion with mild disease of the intermedius, at that time patient was supposed to go pack to have an attempt to open the LAD however the patient did not he has been following with Dr. Velazco on a regular basis, patient presented to the emergency department at [facility] yesterday because of lethargy and not able to do anything over the last 48 hours patient blood pressure was found to be extremely low at home in the low 70s over 40s so he decided to come to the emergency room for evaluation his lactic acid was slightly elevated, his troponin was negative, his EKG showed no new changes, he was slightly dehydrated his urinalysis shows hyaline casts suggestive of dehydration he was started on IV fluid resuscitation the form of normal saline and he was admitted to the hospital for evaluation by cardiology, upon evaluation of the patient there was an infected right big toe callus with bad smell coming out of it along with drainage aerobic and anaerobic culture were obtained, and the patient was started on gentamicin and Zosyn with pharmacy to dose its peak and trough, vascular surgery consultation as well as infectious disease consultation was obtained. 10/22: A is seen today in follow-up. He is continued on IV antibiotics. Blood s ugars have been elevated and we will increase Levemir to 27 units which will be given at nighttime which is his normal time. He states his feet feel cold but he denies any fever or chills. Wound cultures and blood cultures are in progress. Patient has been seen by Dr. White and started on Unasyn and continued on vancomycin. He has been afebrile, heart rate 85, blood pressure 133/73 and pulse ox 90-96% on room air. Patient has also been seen by Dr. Horton. REVIEW OF SYSTEMS: Constitutional: No documented fever, no chills, no night sweats. No weight change. positive for weakness, positive for fatigue no lethargy. No daytime sleepiness. HEENT: No headache. No blurred vision or double vision, no loss of vision. No loss of Hearing, no ringing in the ears, no dizziness. No nasal drainage or congestion. No epistaxis. No sore throat. Lungs: No shortness of breath, no cough, no sputum production. No wheezing. Reports dyspnea with activity. Cardiovascular: No chest pain, no lower extremity edema. No palpitations. No paroxysmal nocturnal dyspnea. No orthopnea. No lightheadedness or dizziness. No syncopal episodes. Abdominal: Reports no abdominal pain. No nausea, vomiting. No diarrhea. No constipation. No bloody or tarry stools reports loss of appetite. Genitourinary: No dysuria, increased frequency, urgency. No urinary retention. Musculoskeletal: No myalgias. No muscle weakness, no gait dysfunction, no frequent falls. No back pain. No neck pain. Integumentary: Right big toe infected callus, no lesions. No rash or pruritus. No unusual bruising, change of the right big toenail. Neurologic: No aphasia. No facial droop. No change in mentation. No head injury. No headache. No paralysis. No paresthesia. Psychiatric: No depression. No anxiety. No mood swings. Endocrine: Noted elevated blood sugars. No weight change. PHYSICAL EXAMINATION: General: 61-year-old male laying down in bed in no distress. HEENT: Head is atraumatic, normocephalic, pupils were equal round reactive to light and recommendation, extraocular muscle movement were intact, sclera nonicteric, conjunctivae were pale, mucous membranes of the mouth are somewhat dry. Neck: Supple, no JVP, normal carotid upstroke bilaterally, no lymphadenopathy. Chest: Decreased breath sounds at the bases, few rhonchi, no expiratory wheezes, no chest wall tenderness, no intercostal retractions. Heart: First heart sound is normal, second heart sounds normal there is no gallop or murmur. Abdomen: Soft, nontender, nondistended, positive bowel sounds. No hepatosplenomegaly Extremities: There is no edema no calf tenderness DP +1 bilaterally, left second toe amputation-dressing is in place. Neurologic examination: Patient is awake alert and oriented X3, cranial nerves II-12 appear grossly intact, muscle power were 5 out of 5 in upper extremities and 5 out of 5 in bilateral lower extremities, deep tendon reflexes normal bilaterally. ASSESSMENT AND PLAN: 1. Hypotension likely related to dehydration . Continue patient on IV fluid in the form of normal saline 75 mL an hour. The patient blood pressure the next 24 hours, monitor the patient CMP. 2. Acute kidney injury on top of chronic kidney disease stage III. Continue IV fluid resuscitation, repeat CMP in the next 24 hours avoid nephrotoxins. 3. Right big toe infected callus. Obtain aerobic and anaerobic culture start the patient on vancomycin and Unasyn, blood cultures were obtained, vascular surgery consultation appreciated as well as infectious disease consultation appreciated. 4. Coronary artery disease status post left heart catheterization back in July 2020 that showed chronic totally occluded proximal to mid LAD chronic totally occluded mid total distal LCx mild disease of the intermedius and mild disease of the RCA with heavily calcified vessels. Continue patient on aspirin 81 mg once every day, metoprolol succinate 25 mg orally once every day, atorvastatin 40 mg orally once every day cardiology evaluation is in progress. 5. Hypertension and hypertensive cardiovascular disease. Continue patient on lisinopril 10 mg orally once every day, continue Toprol-XL 25 mg once every day, discontinue amlodipine. 6. Hyperlipidemia. Continue low-cholesterol diet and exercise, continue patient on atorvastatin 40 mg orally once every day monitor lipid panel, LDL 55- 70. 7. Diabetes mellitus type 2. Continue patient on Levemir increased to 27 units at bedtime along with the glimeperide 4 mg orally twice every day, continue patient on sliding scale insulin. 8. Diabetic polyneuropathy. Continue gabapentin 600 mg orally twice every day. 9. Osteoarthritis. Continue tramadol 50 mg orally 3 times every day. 10. PAD. Continue aspirin and atorvastatin for secondary prevention. Full code Discharge plan HOME Impression and plan of care have been directed as dictated by the signing physician. Cayla Arredondo nurse practitioner acting as scribe for signing physician. Objective - Vital Signs Vital signs: Vital Signs Temp 97.6 F 10/22/21 07:00 Pulse 85 10/22/21 07:00 Resp 16 10/22/21 07:00 BP 133/73 10/22/21 07:00 Pulse Ox 90 L 10/22/21 07:00 Intake & Output 10/21/21 10/22/21 10/22/21 18:59 06:59 18:59 Other: # Voids 1 - Labs CBC & Chem 7: 10/20/21 16:05 10/20/21 16:05 Labs: Abnormal Lab Results - Last 24 Hours (Table) 10/21/21 10/21/21 10/21/21 Range/Units 10:10 12:24 12:24 ESR 72 H (0-15) mm/hr POC Glucose (mg/dL) 220 H (75-99) mg/dL C-Reactive Protein 17.2 H (<1.0) mg/dL 10/21/21 10/21/21 10/22/21 Range/Units 12:54 18:22 07:56 ESR (0-15) mm/hr POC Glucose (mg/dL) 269 H 213 H 204 H (75-99) mg/dL C-Reactive Protein (<1.0) mg/dL Microbiology - Last 24 Hours (Table) 10/21/21 10:48 Gram Stain - Preliminary Toe - Right First Wound Culture - Preliminary 10/20/21 16:20 Blood Culture - Preliminary Blood No Growth after 24 hours 10/20/21 16:25 Blood Culture - Preliminary Blood No Growth after 24 hours 10/21/21 10:48 Anaerobic Culture - Preliminary Toe - Right First 10/20/21 23:05 Urine Culture - Preliminary Urine,Voided
--- NOTE | 2021-10-22 10:11 | P.PN ---
Subjective Progress Note Date: 10/22/21 HISTORY OF PRESENT ILLNESS: 10/21/2021 HPI: Patient is a pleasant 61 year old male who initially presented to the hospital with weakness and low blood pressure. Patient states that he was at home over the last couple of days, and noticed that he was very tired and sleeping alot. He checked his blood pressure at home and noted it was in the 80's/40's. After a couple of days of this he felt he should get checked out and so presented to the emergency department. ER found no EKG changes, Troponins are negative. He does have an elevated white count, and states he has a callus on his right foot that is being treated. He is diabetic. He also has a past medical history includes chest pain, hyperlipidemia, hypertension, osteoporosis, pneumonia, sleep apnea. He has a past surgical history that includes left hand pointer finger repair, right knee replacement, and left second toe amputation. He reports that he is a never smoker, and denies current alcohol or illicit subs tance use. This morning in the ED his blood pressure is within normal limits. He has not received any of his medications since yesterday. This is a 61-year-old male who is admitted to the hospital secondary to hypotension and big toe infected callus. Infectious disease is following. Shabbir lozano is receiving antibiotics. Patient's hypotension has resolved. Blood pressure this morning 133/73. Heart rate in the 80s. He is on room air with oxygen saturations greater than 92%. He is afebrile. Patient's lisinopril was increased yesterday. His hydrochlorothiazide and amlodipine were held. Patient denies chest pain or pressure. Denies shortness of breath. Echocardiogram completed revealing ejection fraction 45%, apical anterior, apical lateral, apical inferior, and apical septal and LV wall hypokinesis. It is noted that the patient underwent cardiac catheterization in July [address] Magallon revealing calcified right and left coronary system. Chronic total occlusion of the proximal to mid LAD. LAD is extremity calcified. Chronic total occlusion of the proximal to mid left circumflex. Elevated left ventricular end-diastolic pressures. Medical management was recommended. PHYSICAL EXAM: VITAL SIGNS: Reviewed. GENERAL: Well-developed in no acute distress. NECK: Supple. No JVD or thyromegaly LUNGS: Respirations even and unlabored. Lungs essentially clear to auscultation bilaterally. HEART: Regular rate and rhythm. S1 and S2 heard. EXTREMITIES: Normal range of motion. No clubbing or cyanosis. Peripheral pulses intact. No lower extremity edema ASSESSMENT: Hypotension, resolved Big right toe infected callus Leukocytosis History of hypertension Hyperlipidemia Coronary artery disease, s/p cardiac catheterization in July 2020, see details above Mild ischemic cardiomyopathy, EF 45% Diabetes PLAN: Continue lisinopril Increase metoprolol succinate to 50 mg daily Continue to hold amlodipine and hydrochlorothiazide Continue antibiotics per infectious disease Further recommendations pending patient's course Nurse practitioner note has been reviewed by physician. Signing provider agrees with the documented findings, assessment, and plan of care. Objective - Vital Signs Vital signs: Vital Signs Temp 97.6 F 10/22/21 07:00 Pulse 85 10/22/21 07:00 Resp 16 10/22/21 07:00 BP 133/73 10/22/21 07:00 Pulse Ox 90 L 10/22/21 07:00 Intake & Output 10/21/21 10/22/21 10/22/21 18:59 06:59 18:59 Other: # Voids 1 - Labs CBC & Chem 7: 10/20/21 16:05 10/20/21 16:05 Labs: Abnormal Lab Results - Last 24 Hours (Table) 10/21/21 10/21/21 10/21/21 Range/Units 10:10 12:24 12:24 ESR 72 H (0-15) mm/hr POC Glucose (mg/dL) 220 H (75-99) mg/dL C-Reactive Protein 17.2 H (<1.0) mg/dL 10/21/21 10/21/21 10/22/21 Range/Units 12:54 18:22 07:56 ESR (0-15) mm/hr POC Glucose (mg/dL) 269 H 213 H 204 H (75-99) mg/dL C-Reactive Protein (<1.0) mg/dL Microbiology - Last 24 Hours (Table) 10/21/21 10:48 Gram Stain - Preliminary Toe - Right First Wound Culture - Preliminary 10/20/21 16:20 Blood Culture - Preliminary Blood No Growth after 24 hours 10/20/21 16:25 Blood Culture - Preliminary Blood No Growth after 24 hours 10/21/21 10:48 Anaerobic Culture - Preliminary Toe - Right First 10/20/21 23:05 Urine Culture - Preliminary Urine,Voided
[2021-10-22 11:15] LABS: African American GFR (CKD) 63.3 (60.0-200.0); Albumin 3.3 g/dL (3.8-4.9); Albumin/Globulin Ratio 1.27 (1.60-3.17); Anion Gap 11.1 mmol/L (10.00-18.00); BUN/Creat Ratio 16.21 Ratio (12.00-20.00); Blood Urea Nitrogen 22.7 mg/dL (9.0-27.0); Calcium 8.4 mg/dL (8.7-10.3); Carbon Dioxide 22.9 mmol/L (20.0-27.5); Globulin 2.6 g/dL (1.6-3.3); Non-African American GFR(CKD) 54.6 (60.0-200.0); Potassium 4.2 mmol/L (3.5-5.5); Total Bilirubin 0.4 mg/dL (0.30-1.20); Total Protein 5.9 g/dL (6.2-8.2)
[2021-10-22 11:40] LABS: Basophils # (A) 0.03 X 10*3/uL (0.00-0.10); Basophils % (A) 0.4 %; Eosinophils # (A) 0.22 X 10*3/uL (0.04-0.35); Eosinophils % (A) 2.9 %; HCT 35.5 % (39.6-50.0); HGB 11.4 g/dL (13.0-17.0); Lymphocytes # (A) 1.54 X 10*3/uL (0.90-5.00); MCHC 32.1 g/dL (32.0-37.0); MCV 93.4 fL (80.0-97.0); Mean Platelet Volume 10.9 fL (9.5-12.2); Monocytes # (A) 0.72 X 10*3/uL (0.20-1.00); Monocytes % (A) 9.4 %; Neutrophils # (A) 5.14 X 10*3/uL (1.80-7.70); Neutrophils % (A) 66.8 %; Platelet Count 171 X 10*3/uL (140-440); RDW 12.8 % (11.5-14.5); WBC 7.69 X 10*3/uL (4.50-10.00)
[2021-10-22 12:05] LABS: Glucose,Whole Blood 286 mg/dL (75-99)
[2021-10-22 17:39] LABS: Glucose,Whole Blood 300 mg/dL (75-99)
[2021-10-22 21:33] LABS: Glucose,Whole Blood 215 mg/dL (75-99)
[2021-10-23] MEDS: AMPICILLIN-SULBACTAM 3 GM in SODIUM CHLORIDE 0.9% 100 ML IVPB SCH ×4 (01:21→18:16)
[2021-10-23] MEDS: SODIUM CHLORIDE 0.9% 1,000 ML IV SCH ×2 (03:26→13:22)
[2021-10-23 07:09] LABS: Glucose,Whole Blood 117 mg/dL (75-99)
[2021-10-23] MEDS: GABAPENTIN 300 MG CAP PO SCH ×2 (07:45→22:23)
[2021-10-23] MEDS: METOPROLOL SUCCINATE (ER) 50 MG TAB.ER.24H PO SCH (07:46)
[2021-10-23] MEDS: HEPARIN SODIUM,PORCINE/PF 5,000 UNIT/0.5 ML SYRINGE SQ SCH ×2 (07:46→22:24)
[2021-10-23] MEDS: ATORVASTATIN 40 MG TAB PO SCH (07:47)
[2021-10-23] MEDS: lisinopriL 10 MG TAB PO SCH (07:47)
[2021-10-23] MEDS: GLIMEPIRIDE 4 MG TAB PO SCH ×2 (07:47→22:24)
[2021-10-23] MEDS: CHOLECALCIFEROL 25 MCG (1000 IU) TABLET PO SCH (07:47)
[2021-10-23] MEDS: traMADol 50 MG TAB PO SCH ×3 (07:47→22:23)
[2021-10-23] MEDS: BACLOFEN 10 MG TAB PO SCH ×2 (07:47→22:23)
[2021-10-23] MEDS: FAMOTIDINE 20 MG TAB PO SCH (07:48)
[2021-10-23] MEDS: ASPIRIN 81 MG PO SCH (07:48)
[2021-10-23] MEDS: INSULIN ASPART (NovoLOG) 100 UNIT/ML VIAL SQ SCH ×3 (07:49→18:16)
--- NOTE | 2021-10-23 10:04 | P.PN ---
Subjective Progress Note Date: 10/23/21 HISTORY OF PRESENT ILLNESS: 10/21/2021 HPI: Patient is a pleasant 61 year old male who initially presented to the hospital with weakness and low blood pressure. Patient states that he was at home over the last couple of days, and noticed that he was very tired and sleeping alot. He checked his blood pressure at home and noted it was in the 80's/40's. After a couple of days of this he felt he should get checked out and so presented to the emergency department. ER found no EKG changes, Troponins are negative. He does have an elevated white count, and states he has a callus on his right foot that is being treated. He is diabetic. He also has a past medical history includes chest pain, hyperlipidemia, hypertension, osteoporosis, pneumonia, sleep apnea. He has a past surgical history that includes left hand pointer finger repair, right knee replacement, and left second toe amputation. He reports that he is a never smoker, and denies current alcohol or illicit subs tance use. This morning in the ED his blood pressure is within normal limits. He has not received any of his medications since yesterday. This is a 61-year-old male who is admitted to the hospital secondary to hypotension and big toe infected callus. Infectious disease is following. Shabbir lozano is receiving antibiotics. Patient's hypotension has resolved. Blood pressure this morning 133/73. Heart rate in the 80s. He is on room air with oxygen saturations greater than 92%. He is afebrile. Patient's lisinopril was increased yesterday. His hydrochlorothiazide and amlodipine were held. Patient denies chest pain or pressure. Denies shortness of breath. Echocardiogram completed revealing ejection fraction 45%, apical anterior, apical lateral, apical inferior, and apical septal and LV wall hypokinesis. It is noted that the patient underwent cardiac catheterization in July [address] Magallon revealing calcified right and left coronary system. Chronic total occlusion of the proximal to mid LAD. LAD is extremity calcified. Chronic total occlusion of the proximal to mid left circumflex. Elevated left ventricular end-diastolic pressures. Medical management was recommended. 10/23/2021 Patient examined this morning at the bedside. Patient denies chest pain or pr essure. He denies stress of breath. Vital signs are stable. He is awaiting antibiotic recommendations from infectious disease. PHYSICAL EXAM: VITAL SIGNS: Reviewed. GENERAL: Well-developed in no acute distress. NECK: Supple. No JVD or thyromegaly LUNGS: Respirations even and unlabored. Lungs essentially clear to auscultation bilaterally. HEART: Regular rate and rhythm. S1 and S2 heard. EXTREMITIES: Normal range of motion. No clubbing or cyanosis. Peripheral pulses intact. No lower extremity edema ASSESSMENT: Hypotension, resolved Big right toe infected callus Leukocytosis History of hypertension Hyperlipidemia Coronary artery disease, s/p cardiac catheterization in July 2020, see details above Mild ischemic cardiomyopathy, EF 45% Diabetes PLAN: Continue current cardiac medications No further recommendations from a cardiac standpoint We will sign off. Please reconsult if needed. Nurse practitioner note has been reviewed by physician. Signing provider agrees with the documented findings, assessment, and plan of care. Objective - Vital Signs Vital signs: Vital Signs Temp 98.6 F 10/23/21 07:00 Pulse 74 10/23/21 07:00 Resp 16 10/23/21 07:00 BP 125/83 10/23/21 07:00 Pulse Ox 94 L 10/23/21 07:00 Intake & Output 10/22/21 10/23/21 10/23/21 18:59 06:59 18:59 Other: # Voids 2 3 - Labs CBC & Chem 7: 10/22/21 07:12 10/23/21 06:58 Labs: Abnormal Lab Results - Last 24 Hours (Table) 10/22/21 10/22/21 10/22/21 Range/Units 07:12 07:12 12:04 RBC 3.80 L (4.40-5.60) X 10*6/uL Hgb 11.4 L (13.0-17.0) g/dL Hct 35.5 L (39.6-50.0) % Est GFR (CKD-EPI)NonAf 54.6 L (60.0-200.0) Glucose 215 H (70-110) mg/dL POC Glucose (mg/dL) 286 H (75-99) mg/dL Calcium 8.4 L (8.7-10.3) mg/dL Total Protein 5.9 L (6.2-8.2) g/dL Albumin 3.3 L (3.8-4.9) g/dL Albumin/Globulin Ratio 1.27 L (1.60-3.17) g/dL 10/22/21 10/22/21 10/23/21 Range/Units 17:36 21:31 07:08 RBC (4.40-5.60) X 10*6/uL Hgb (13.0-17.0) g/dL Hct (39.6-50.0) % Est GFR (CKD-EPI)NonAf (60.0-200.0) Glucose (70-110) mg/dL POC Glucose (mg/dL) 300 H 215 H 117 H (75-99) mg/dL Calcium (8.7-10.3) mg/dL Total Protein (6.2-8.2) g/dL Albumin (3.8-4.9) g/dL Albumin/Globulin Ratio (1.60-3.17) g/dL Microbiology - Last 24 Hours (Table) 10/20/21 16:20 Blood Culture - Preliminary Blood No Growth after 48 hours 10/20/21 16:25 Blood Culture - Preliminary Blood No Growth after 48 hours 10/20/21 23:05 Urine Culture - Final Urine,Voided Strep agalactiae - (group b) 10/21/21 10:48 Gram Stain - Preliminary Toe - Right First Wound Culture - Preliminary Strep agalactiae - (group b)
--- NOTE | 2021-10-23 10:26 | P.PN ---
Subjective Progress Note Date: 10/23/21 HISTORY OF PRESENT ILLNESS: This is a 61-year-old male one of my patient with a previous medical history significant for hypertension and hypertensive cardiovascular disease, hyperlipidemia, diabetes mellitus type 2 with hyperglycemia, chronic kidney disease stage IIIA, PAD, diabetic polyneuropathy, coronary artery disease status post left heart catheterization that was done in July 2020 that showed mild disease of the RCA and the chronic totally occluded proximal to mid LAD and chronic totally occluded left circumflex in the mid to distal portion with mild disease of the intermedius, at that time patient was supposed to go pack to have an attempt to open the LAD however the patient did not he has been following with Dr. Velazco on a regular basis, patient presented to the emergency department at [facility] yesterday because of lethargy and not able to do anything over the last 48 hours patient blood pressure was found to be extremely low at home in the low 70s over 40s so he decided to come to the emergency room for evaluation his lactic acid was slightly elevated, his troponin was negative, his EKG showed no new changes, he was slightly dehydrated his urinalysis shows hyaline casts suggestive of dehydration he was started on IV fluid resuscitation the form of normal saline and he was admitted to the hospital for evaluation by cardiology, upon evaluation of the patient there was an infected right big toe callus with bad smell coming out of it along with drainage aerobic and anaerobic culture were obtained, and the patient was started on gentamicin and Zosyn with pharmacy to dose its peak and trough, vascular surgery consultation as well as infectious disease consultation was obtained. 10/22: A is seen today in follow-up. He is continued on IV antibiotics. Blood s ugars have been elevated and we will increase Levemir to 27 units which will be given at nighttime which is his normal time. He states his feet feel cold but he denies any fever or chills. Wound cultures and blood cultures are in progress. Patient has been seen by Dr. White and started on Unasyn and continued on vancomycin. He has been afebrile, heart rate 85, blood pressure 133/73 and pulse ox 90-96% on room air. Patient has also been seen by Dr. Horton. 10/23: IV fluids decreased to 50 miles per hour. He states that he is not interested in undergoing any surgery and would like to continue conservative management. He is continued on Unasyn and vancomycin followed by Dr. White. Creatinine 1.15. Urine culture is strep atelectatic group B as well as toe wound culture is strep atelectatic group B. Patient is currently stable and would like to plan for discharge by tomorrow. Capillary blood glucose this morning 117 and patient will be maintained on increased dose of Levemir 27 units. REVIEW OF SYSTEMS: Constitutional: No documented fever, no chills, no night sweats. No weight change. positive for weakness, positive for fatigue no lethargy. No daytime sleepiness. HEENT: No headache. No blurred vision or double vision, no loss of vision. No loss of Hearing, no ringing in the ears, no dizziness. No nasal drainage or congestion. No epistaxis. No sore throat. Lungs: No shortness of breath, no cough, no sputum production. No wheezing. Reports dyspnea with activity. Cardiovascular: No chest pain, no lower extremity edema. No palpitations. No paroxysmal nocturnal dyspnea. No orthopnea. No lightheadedness or dizziness. No syncopal episodes. Abdominal: Reports no abdominal pain. No nausea, vomiting. No diarrhea. No constipation. No bloody or tarry stools reports loss of appetite. Genitourinary: No dysuria, increased frequency, urgency. No urinary retention. Musculoskeletal: No myalgias. No muscle weakness, no gait dysfunction, no frequent falls. No back pain. No neck pain. Integumentary: Right big toe infected callus, no lesions. No rash or pruritus. No unusual bruising, change of the right big toenail. Neurologic: No aphasia. No facial droop. No change in mentation. No head injury. No headache. No paralysis. No paresthesia. Psychiatric: No depression. No anxiety. No mood swings. Endocrine: Noted elevated blood sugars, improved. No weight change. PHYSICAL EXAMINATION: General: 61-year-old male laying down in bed in no distress. HEENT: Head is atraumatic, normocephalic, pupils were equal round reactive to light and recommendation, extraocular muscle movement were intact, sclera nonicteric, conjunctivae were pale. Neck: Supple, no JVP, normal carotid upstroke bilaterally, no lymphadenopathy. Chest: Decreased breath sounds at the bases, few rhonchi, no expiratory wheezes, no chest wall tenderness, no intercostal retractions. Heart: First heart sound is normal, second heart sounds normal there is no gallop or murmur. Abdomen: Soft, nontender, nondistended, positive bowel sounds. No hepatosplenomegaly Extremities: There is no edema no calf tenderness DP +1 bilaterally, left second toe amputation-dressing is in place. Neurologic examination: Patient is awake alert and oriented X3, cranial nerves II-12 appear grossly intact, muscle power were 5 out of 5 in upper extremities and 5 out of 5 in bilateral lower extremities, deep tendon reflexes normal bilaterally. ASSESSMENT AND PLAN: 1. Hypotension likely related to dehydration . Continue patient on IV fluid in the form of normal saline decreased to 50 mL an hour. 2. Acute kidney injury on top of chronic kidney disease stage III. Continue IV fluid resuscitation, repeat CMP in the next 24 hours avoid nephrotoxins. 3. Right big toe infected callus. Obtain aerobic and anaerobic culture start the patient on vancomycin and Unasyn, blood cultures were obtained, vascular surgery consultation appreciated as well as infectious disease consultation appreciated. 4. Coronary artery disease status post left heart catheterization back in July 2020 that showed chronic totally occluded proximal to mid LAD chronic totally occluded mid total distal LCx mild disease of the intermedius and mild disease of the RCA with heavily calcified vessels. Continue patient on aspirin 81 mg once every day, metoprolol succinate 25 mg orally once every day, atorvastatin 40 mg orally once every day cardiology evaluation is in progress. 5. Hypertension and hypertensive cardiovascular disease. Continue patient on lisinopril 10 mg orally once every day, continue Toprol-XL 25 mg once every day, discontinue amlodipine. 6. Hyperlipidemia. Continue low-cholesterol diet and exercise, continue patient on atorvastatin 40 mg orally once every day monitor lipid panel, LDL 55- 70. 7. Diabetes mellitus type 2. Continue patient on Levemir increased to 27 units at bedtime along with the glimeperide 4 mg orally twice every day, continue patient on sliding scale insulin. 8. Diabetic polyneuropathy. Continue gabapentin 600 mg orally twice every day. 9. Osteoarthritis. Continue tramadol 50 mg orally 3 times every day. 10. PAD. Continue aspirin and atorvastatin for secondary prevention. Full code Discharge plan HOME possibly tomorrow Impression and plan of care have been directed as dictated by the signing physician. Cayla Arredondo nurse practitioner acting as scribe for signing physician. Objective - Vital Signs Vital signs: Vital Signs Temp 98.6 F 10/23/21 07:00 Pulse 74 10/23/21 07:00 Resp 16 10/23/21 07:00 BP 125/83 10/23/21 07:00 Pulse Ox 94 L 10/23/21 07:00 Intake & Output 10/22/21 10/23/21 10/23/21 18:59 06:59 18:59 Other: # Voids 2 3 - Labs CBC & Chem 7: 10/22/21 07:12 10/23/21 06:58 Labs: Abnormal Lab Results - Last 24 Hours (Table) 10/22/21 10/22/21 10/22/21 Range/Units 07:12 07:12 12:04 RBC 3.80 L (4.40-5.60) X 10*6/uL Hgb 11.4 L (13.0-17.0) g/dL Hct 35.5 L (39.6-50.0) % Est GFR (CKD-EPI)NonAf 54.6 L (60.0-200.0) Glucose 215 H (70-110) mg/dL POC Glucose (mg/dL) 286 H (75-99) mg/dL Calcium 8.4 L (8.7-10.3) mg/dL Total Protein 5.9 L (6.2-8.2) g/dL Albumin 3.3 L (3.8-4.9) g/dL Albumin/Globulin Ratio 1.27 L (1.60-3.17) g/dL 10/22/21 10/22/21 10/23/21 Range/Units 17:36 21:31 07:08 RBC (4.40-5.60) X 10*6/uL Hgb (13.0-17.0) g/dL Hct (39.6-50.0) % Est GFR (CKD-EPI)NonAf (60.0-200.0) Glucose (70-110) mg/dL POC Glucose (mg/dL) 300 H 215 H 117 H (75-99) mg/dL Calcium (8.7-10.3) mg/dL Total Protein (6.2-8.2) g/dL Albumin (3.8-4.9) g/dL Albumin/Globulin Ratio (1.60-3.17) g/dL Microbiology - Last 24 Hours (Table) 10/20/21 16:20 Blood Culture - Preliminary Blood No Growth after 48 hours 10/20/21 16:25 Blood Culture - Preliminary Blood No Growth after 48 hours 10/20/21 23:05 Urine Culture - Final Urine,Voided Strep agalactiae - (group b) 10/21/21 10:48 Gram Stain - Preliminary Toe - Right First Wound Culture - Preliminary Strep agalactiae - (group b)
[2021-10-23 12:17] LABS: Glucose,Whole Blood 161 mg/dL (75-99)
[2021-10-23] MEDS ORDERED: LIDOCAINE 1% INJ 10MG/ML (20 ML MDV) ONE (14:09)
[2021-10-23] MEDS ORDERED: LIDOCAINE 1% INJ 10MG/ML (20 ML MDV) SQ ONE (14:25)
[2021-10-23] MEDS: VANCOMYCIN 2,500 MG in SODIUM CHLORIDE 0.9% 500 ML 500 ML IVPB SCH (14:55)
--- NOTE | 2021-10-23 15:03 | IR ---
PICC LINE PLACEMENT: HISTORY: Infection requiring long-term antibiotic therapy PROCEDURE: Ultrasound and fluoroscopic guidance of PICC line placement. COMPLICATIONS: None ANESTHESIA: 1. 1% Lidocaine locally. FINDINGS/TECHNIQUE: The procedure was explained to the patient. The risks, complications, benefits and alternatives were discussed and any questions were answered. Informed consent was obtained. The patient was placed supine on the fluoroscopic table and prepped and draped in the usual sterile fash ion. Utilizing a 21 gauge needle and sonographic and fluoroscopic guidance, access in the left basi lic vein was achieved and there is placement of a 0.018 guidewire. The vein is patent. A 4-F sheath was placed over the guidewire. The guidewire and dilator were removed and a 4-F. PICC line was plac ed through the sheath with the tip at the level of the SVC. The sheath was removed, the catheter was flushed and sutured into position. The patient was stable throughout the procedure and remained sta ble upon discharge from the Department of Radiology. The vein puncture was patent under ultrasound. A marshall scale image was obtained to document patency of the vein punctured. All elements of the maximal barrier technique were utilized. FLUOROSCOPY TIME: 0.1minutes and 1 image submitted. IMPRESSION: Successful PICC line placement under ultrasound and fluoroscopic guidance.
[2021-10-23 17:10] LABS: Glucose,Whole Blood 207 mg/dL (75-99)
[2021-10-23 20:50] LABS: Glucose,Whole Blood 219 mg/dL (75-99)
[2021-10-23] MEDS: INSULIN DETEMIR (LEVEMIR) 100 UNIT/ML SYR SQ SCH (22:24)
[2021-10-24] MEDS: AMPICILLIN-SULBACTAM 3 GM in SODIUM CHLORIDE 0.9% 100 ML IVPB SCH ×2 (01:04→05:35)
[2021-10-24] MEDS ORDERED: VANCOMYCIN TROUGH DUE 1 EACH MISC MISCELLANE ONE (03:00)
[2021-10-24] MEDS: VANCOMYCIN 2,500 MG in SODIUM CHLORIDE 0.9% 500 ML 500 ML IVPB SCH (04:02)
[2021-10-24] MEDS: SODIUM CHLORIDE 0.9% 1,000 ML IV SCH (04:07)
[2021-10-24 07:04] LABS: Glucose,Whole Blood 127 mg/dL (75-99)
--- NOTE | 2021-10-24 08:48 | P.DS ---
Providers Date of admission: 10/22/21 08:57 Expected date of discharge: 10/24/21 Attending physician: Lewis Wing Consults: 10/21/21 11:42 Consult Physician Routine Consulting Provider: Deep Horton Consult Reason/Comments: Inected right toe callus Do you want consulting provider notified?: Yes Consult Physician Routine Consulting Provider: Ester White Consult Reason/Comments: Infected right toe callus Do you want consulting provider notified?: Yes Primary care physician: Lewis Wing Hospital Course: HISTORY OF PRESENT ILLNESS: This is a 61-year-old male one of my patient with a previous medical history significant for hypertension and hypertensive cardiovascular disease, hyperlipidemia, diabetes mellitus type 2 with hyperglycemia, chronic kidney disease stage IIIA, PAD, diabetic polyneuropathy, coronary artery disease status post left heart catheterization that was done in July 2020 that showed mild disease of the RCA and the chronic totally occluded proximal to mid LAD and chronic totally occluded left circumflex in the mid to distal portion with mild disease of the intermedius, at that time patient was supposed to go pack to have an attempt to open the LAD however the patient did not he has been following with Dr. Velazco on a regular basis, patient presented to the emergency department at [facility] yesterday because of lethargy and not able to do anything over the last 48 hours patient blood pressure was found to be extremely low at home in the low 70s over 40s so he decided to come to the emergency room for evaluation his lactic acid was slightly elevated, his troponin was negative, his EKG showed no new changes, he was slightly dehydrated his urinalysis shows hyaline casts suggestive of dehydration he was started on IV fluid resuscitation the form of normal saline and he was admitted to the hospital for evaluation by cardiology, upon evaluation of the patient there was an infected right big toe callus with bad smell coming out of it along with drainage aerobic and anaerobic culture were obtained, and the patient was started on gentamicin and Zosyn with pharmacy to dose its peak and trough, vascular surgery consultation as well as infectious disease consultation was obtained. 10/22: Patient is seen today in follow-up. He is continued on IV antibiotics. Blood sugars have been elevated and we will increase Levemir to 27 units which will be given at nighttime which is his normal time. He states his feet feel cold but he denies any fever or chills. Wound cultures and blood cultures are in progress. Patient has been seen by Dr. White and started on Unasyn and continued on vancomycin. He has been afebrile, heart rate 85, blood pressure 133/73 and pulse ox 90-96% on room air. Patient has also been seen by Dr. Horton. 10/23: IV fluids decreased to 50 miles per hour. He states that he is not interested in undergoing any surgery and would like to continue conservative management. He is continued on Unasyn and vancomycin followed by Dr. White. Creatinine 1.15. Urine culture is strep atelectatic group B as well as toe wound culture is strep atelectatic group B. Patient is currently stable and would like to plan for discharge by tomorrow. Capillary blood glucose this morning 117 and patient will be maintained on increased dose of Levemir 27 units. 10/24: PIC line was ordered yesterday and was placed. Patient has been on IV fluids which will be discontinued and one dose of IV Lasix given. Dr. White is managing IV antibiotics for home in correctional case manager is making arrangements. Patient has been afebrile, heart rate 74, blood pressure 164/95, pulse ox 95% on room air. Creatinine 1.26. Her blood glucose this morning 127 and through the night 200 7219. Vancomycin trough 17.9. Patient will be discharged home today in stable condition once all arrangements are completed. DISCHARGE DIAGNOSES 1. Hypotension likely related to dehydration. 2. Acute kidney injury on top of chronic kidney disease stage III. 3. Right big toe infected callus. 4. Coronary artery disease status post left heart catheterization back in July 2020 that showed chronic totally occluded proximal to mid LAD chronic totally occluded mid total distal LCx mild disease of the intermedius and mild disease of the RCA with heavily calcified vessels. 5. Hypertension and hypertensive cardiovascular disease. 6. Hyperlipidemia. 7. Diabetes mellitus type 2. 8. Diabetic polyneuropathy. 9. Osteoarthritis, generalized. 10. PAD. Discharge plan HOME WITH IV ABX Impression and plan of care have been directed as dictated by the signing physician. Cayla Arredondo nurse practitioner acting as scribe for signing physician. Patient Condition at Discharge: Critical Plan - Discharge Summary Discharge Rx Participant: No New Discharge Prescriptions: New Metoprolol Succinate (ER) [Toprol XL] 50 mg PO DAILY #90 tab cefTRIAXone [Rocephin] 2 gm IVPB Q24H #42 each lisinopriL [Zestril] 10 mg PO DAILY #90 tab metroNIDAZOLE [Flagyl] 500 mg PO TID #90 tab Continue Baclofen 10 mg PO BID Glimepiride [Amaryl] 4 mg PO BID Gabapentin 600 mg PO BID Ergocalciferol (Vitamin D2) [Vitamin D2 (50,000 Iu)] 1,250 mcg PO Q30D Aspirin [Adult Low Dose Aspirin EC] 81 mg PO DAILY traMADol HCL 100 mg PO TID Atorvastatin Calcium [Lipitor] 40 mg PO DAILY Cholecalciferol [Vitamin D3 (25 Mcg = 1000 Iu)] 50 mcg PO DAILY Changed Insulin Glargine [Lantus Vial] 27 unit SQ DAILY #0 Discontinued amLODIPine BESYLATE 5 mg PO DAILY lisinopriL [Zestril] 5 mg PO DAILY Hydrochlorothiazide [hydroCHLOROthiazide] 12.5 mg PO DAILY Metoprolol Succinate [Toprol XL] 25 mg PO DAILY Spironolactone [Aldactone] 25 mg PO DAILY Discharge Medication List Aspirin [Adult Low Dose Aspirin EC] 81 mg PO DAILY 07/19/20 [History] Baclofen 10 mg PO BID 07/19/20 [History] Ergocalciferol (Vitamin D2) [Vitamin D2 (50,000 Iu)] 1,250 mcg PO Q30D 07/19/20 [History] Gabapentin 600 mg PO BID 07/19/20 [History] Glimepiride [Amaryl] 4 mg PO BID 07/19/20 [History] Atorvastatin Calcium [Lipitor] 40 mg PO DAILY 10/20/21 [History] Cholecalciferol [Vitamin D3 (25 Mcg = 1000 Iu)] 50 mcg PO DAILY 10/20/21 [History] traMADol HCL 100 mg PO TID 10/20/21 [History] Metoprolol Succinate (ER) [Toprol XL] 50 mg PO DAILY #90 tab 10/23/21 [Rx] lisinopriL [Zestril] 10 mg PO DAILY #90 tab 10/23/21 [Rx] Insulin Glargine [Lantus Vial] 27 unit SQ DAILY #0 10/24/21 [Rx] cefTRIAXone [Rocephin] 2 gm IVPB Q24H #42 each 10/24/21 [Rx] metroNIDAZOLE [Flagyl] 500 mg PO TID #90 tab 01/19/22 [Rx] Follow up Appointment(s)/Referral(s): Darryn Velazco MD [STAFF PHYSICIAN] - 1 Week [facility], [NON-STAFF] - 10/25/21 [facility],Infusion [NON-STAFF] - Ester White MD [STAFF PHYSICIAN] - 1 Week Lewis Wing MD [Primary Care Provider] - 1 Week Ambulatory/Diagnostic Orders: Basic Metabolic Panel [LAB.AMB] Location: None Selected C Reactive Protein [LAB.AMB] Location: None Selected Complete Blood Count w/diff [LAB.AMB] Location: None Selected Erythrocyte Sedimentation Rate [LAB.AMB] Location: None Selected Activity/Diet/Wound Care/Special Instructions: Aquacel silver packing of the wound daily offloading shoes follow-up with Dr. White in the wound care center Discharge Disposition: HOME WITH HOME HEALTH SERVICES
[2021-10-24] MEDS: INSULIN ASPART (NovoLOG) 100 UNIT/ML VIAL SQ SCH ×2 (09:07→13:56)
[2021-10-24] MEDS: CHOLECALCIFEROL 25 MCG (1000 IU) TABLET PO SCH (10:15)
[2021-10-24] MEDS: GABAPENTIN 300 MG CAP PO SCH (10:15)
[2021-10-24] MEDS: HEPARIN SODIUM,PORCINE/PF 5,000 UNIT/0.5 ML SYRINGE SQ SCH (10:15)
[2021-10-24] MEDS: lisinopriL 10 MG TAB PO SCH (10:15)
[2021-10-24] MEDS: GLIMEPIRIDE 4 MG TAB PO SCH (10:16)
[2021-10-24] MEDS: traMADol 50 MG TAB PO SCH (10:16)
[2021-10-24] MEDS: FAMOTIDINE 20 MG TAB PO SCH (10:16)
[2021-10-24] MEDS: METOPROLOL SUCCINATE (ER) 50 MG TAB.ER.24H PO SCH (10:16)
[2021-10-24] MEDS: ASPIRIN 81 MG PO SCH (10:16)
[2021-10-24] MEDS: BACLOFEN 10 MG TAB PO SCH (10:17)
[2021-10-24] MEDS: ATORVASTATIN 40 MG TAB PO SCH (10:17)
[2021-10-24] MEDS ORDERED: FUROSEMIDE 10 MG/ML 4 ML VIAL IV STA (10:27)
--- NOTE | 2021-10-24 10:28 | P.PN ---
Subjective Progress Note Date: 10/22/21 Principal diagnosis: Right big toe diabetic foot infection Patient is a 61-year male with a past medical history significant for diabetes mellitus patient did have a nonhealing ulcer on the plantar aspect of his right big toe has been evaluated outpatient setting by his threat analyst admitted hospital with significant infection to the right big toe and concern for possible underlying osteomyelitis. On today's evaluation that is 10/22/2021, the patient denies having any fever or any chills, pain to the right big toe is currently controlled still have some bleeding from the area no chest pain shortness of breath or cough no abdominal pain no diarrhea Objective - Vital Signs Vital signs: Vital Signs Temp 98.4 F 10/22/21 15:00 Pulse 68 10/22/21 15:00 Resp 16 10/22/21 15:00 BP 101/58 10/22/21 15:00 Pulse Ox 94 L 10/22/21 15:00 Intake & Output 10/21/21 10/22/21 10/22/21 18:59 06:59 18:59 Other: # Voids 1 2 - Exam GENERAL DESCRIPTION: Middle-age lying in bed in no distress RESPIRATORY SYSTEM: Unlabored breathing , decreased breath sounds at bases HEART: S1 S2 regular rate and rhythm ,no loud murmurs ABDOMEN: Soft , no tenderness EXTREMITIES; Right big toe is currently dressed minimal drainage on the dressing - Labs CBC & Chem 7: 10/22/21 07:12 10/24/21 03:07 Labs: Abnormal Lab Results - Last 24 Hours (Table) 10/21/21 10/22/21 10/22/21 Range/Units 18: 07:12 07:12 RBC 3.80 L (4.40-5.60) X 10*6/uL Hgb 11.4 L (13.0-17.0) g/dL Hct 35.5 L (39.6-50.0) % Est GFR (CKD-EPI)NonAf 54.6 L (60.0-200.0) Glucose 215 H (70-110) mg/dL POC Glucose (mg/dL) 213 H (75-99) mg/dL Calcium 8.4 L (8.7-10.3) mg/dL Total Protein 5.9 L (6.2-8.2) g/dL Albumin 3.3 L (3.8-4.9) g/dL Albumin/Globulin Ratio 1.27 L (1.60-3.17) g/dL 10/22/21 10/22/21 Range/Units 07:56 12:04 RBC (4.40-5.60) X 10*6/uL Hgb (13.0-17.0) g/dL Hct (39.6-50.0) % Est GFR (CKD-EPI)NonAf (60.0-200.0) Glucose (70-110) mg/dL POC Glucose (mg/dL) 204 H 286 H (75-99) mg/dL Calcium (8.7-10.3) mg/dL Total Protein (6.2-8.2) g/dL Albumin (3.8-4.9) g/dL Albumin/Globulin Ratio (1.60-3.17) g/dL Microbiology - Last 24 Hours (Table) 10/20/21 23:05 Urine Culture - Final Urine,Voided Strep agalactiae - (group b) 10/21/21 10:48 Gram Stain - Preliminary Toe - Right First Wound Culture - Preliminary Strep agalactiae - (group b) 10/20/21 16:20 Blood Culture - Preliminary Blood No Growth after 24 hours 10/20/21 16:25 Blood Culture - Preliminary Blood No Growth after 24 hours 10/21/21 10:48 Anaerobic Culture - Preliminary Toe - Right First Assessment and Plan Assessment: Patient with right big toe plantar ulcer with significant maceration of the right big toe and concerning for deep infection with elevated sed rate wound cultures are currently pending patient to continue with Unasyn and vancomycin discharge antibiotic on the basis of the final cultures Time with Patient: Less than 30
--- NOTE | 2021-10-24 10:29 | P.PN ---
Subjective Progress Note Date: 10/24/21 Principal diagnosis: Right big toe diabetic foot infection Patient is a 61-year male with a past medical history significant for diabetes mellitus patient did have a nonhealing ulcer on the plantar aspect of his right big toe has been evaluated outpatient setting by his policy writer sales admitted hospital with significant infection to the right big toe and concern for possible underlying osteomyelitis. On today's evaluation that is 10/24/2021, the patient Remains to be afebrile, the patient overall is feeling better, he denies pain to his right big toe no further drainage he denies any nausea vomiting no abdominal pain and no diarrhea with antibiotic therapy Objective - Vital Signs Vital signs: Vital Signs Temp 98.0 F 10/24/21 07:00 Pulse 74 10/24/21 07:00 Resp 18 10/24/21 07:00 BP 164/95 10/24/21 07:00 Pulse Ox 95 10/24/21 07:00 Intake & Output 10/23/21 10/24/21 10/24/21 18:59 06:59 18:59 Intake Total 118 Balance 118 Intake: Oral 118 Other: # Voids 3 3 - Exam GENERAL DESCRIPTION: Middle-age lying in bed in no distress RESPIRATORY SYSTEM: Unlabored breathing , decreased breath sounds at bases HEART: S1 S2 regular rate and rhythm ,no loud murmurs ABDOMEN: Soft , no tenderness EXTREMITIES; Right big toe is currently dressed minimal drainage on the dressing - Labs CBC & Chem 7: 10/22/21 07:12 10/24/21 03:07 Labs: Abnormal Lab Results - Last 24 Hours (Table) 10/23/21 10/23/21 10/23/21 Range/Units 12:16 17:08 20:48 Creatinine (0.66-1.25) mg/dL POC Glucose (mg/dL) 161 H 207 H 219 H (75-99) mg/dL 10/24/21 10/24/21 Range/Units 03:07 07:03 Creatinine 1.26 H (0.66-1.25) mg/dL POC Glucose (mg/dL) 127 H (75-99) mg/dL Microbiology - Last 24 Hours (Table) 10/20/21 16:20 Blood Culture - Preliminary Blood No Growth after 72 hours 10/20/21 16:25 Blood Culture - Preliminary Blood No Growth after 72 hours 10/21/21 10:48 Gram Stain - Final Toe - Right First Wound Culture - Final Strep agalactiae - (group b) Assessment and Plan Assessment: Patient with right big toe plantar ulcer with significant maceration of the right big toe and concerning for deep infection with elevated sed rate wound cultures Wound culture have been finalized with Streptococcus agalactiae we will switch over antibiotics to Rocephin 2 g daily plan is for total of 6 weeks of IV Rocephin along with oral Flagyl 500 mg 3 times a day local wound care with the Aquacel silver dressing and offloading shoes and close outpatient follow-up Time with Patient: Less than 30
[2021-10-24 12:12] LABS: Glucose,Whole Blood 195 mg/dL (75-99)
[2021-10-24 15:28] VITALS: BP 143/72; PULSE 68; RESP 16; TEMP 98.3
--- NOTE | 2021-10-24 20:44 | P.PN ---
Subjective Progress Note Date: 10/23/21 Principal diagnosis: Right big toe diabetic foot infection Patient is a 61-year male with a past medical history significant for diabetes mellitus patient did have a nonhealing ulcer on the plantar aspect of his right big toe has been evaluated outpatient setting by his biomedical equipment technician admitted hospital with significant infection to the right big toe and concern for possible underlying osteomyelitis. On today's evaluation that is 10/23/2021, The patient remains to be afebrile, patient denies pain to his right big toe and no further drainage he denies having any chest pain shortness of breath or cough no nausea no vomiting no abdominal pain no diarrhea Objective - Vital Signs Vital signs: Vital Signs Temp 98.0 F 10/24/21 07:00 Pulse 74 10/24/21 07:00 Resp 18 10/24/21 07:00 BP 164/95 10/24/21 07:00 Pulse Ox 95 10/24/21 07:00 Intake & Output 10/23/21 10/24/21 10/24/21 18:59 06:59 18:59 Intake Total 118 Balance 118 Intake: Oral 118 Other: # Voids 3 3 - Exam GENERAL DESCRIPTION: Middle-age lying in bed in no distress RESPIRATORY SYSTEM: Unlabored breathing , decreased breath sounds at bases HEART: S1 S2 regular rate and rhythm ,no loud murmurs ABDOMEN: Soft , no tenderness EXTREMITIES; Right big toe is currently dressed minimal drainage on the dressing - Labs CBC & Chem 7: 10/22/21 07:12 10/24/21 03:07 Labs: Abnormal Lab Results - Last 24 Hours (Table) 10/23/21 10/23/21 10/23/21 Range/Units 12:16 17:08 20:48 Creatinine (0.66-1.25) mg/dL POC Glucose (mg/dL) 161 H 207 H 219 H (75-99) mg/dL 10/24/21 10/24/21 Range/Units 03:07 07:03 Creatinine 1.26 H (0.66-1.25) mg/dL POC Glucose (mg/dL) 127 H (75-99) mg/dL Microbiology - Last 24 Hours (Table) 10/20/21 16:20 Blood Culture - Preliminary Blood No Growth after 72 hours 10/20/21 16:25 Blood Culture - Preliminary Blood No Growth after 72 hours 10/21/21 10:48 Gram Stain - Final Toe - Right First Wound Culture - Final Strep agalactiae - (group b) Assessment and Plan Assessment: Patient with right big toe plantar ulcer with significant maceration of the right big toe and concerning for deep infection with elevated sed rate wound cultures Wound culture have been finalized with Streptococcus agalactiae Patient to continue with the current antibiotics in the form of Unasyn however would be able to switch him over to Rocephin 2 g daily and oral Flagyl on discharge, local wound care with the Aquacel silver dressing and offloading shoes and close outpatient follow-up Time with Patient: Less than 30
== END 2021-10-24 15:38 | disposition home health service (06) | DRG 638 ==
LOC: EC 15:34 → 3SCARD 20:00 → 6NMEDSUR 10-21 16:40 → OBSVTOIN 10-22 08:57
PROVIDERS: ADMIT Internal Medicine; ATTEND Internal Medicine
PROC: 02HV33Z Insertion of Infusion Device into Superior Vena Cava, Percutaneous Approach (ICD-10-PCS; principal; 2021-10-23 20:50)
DX: E11.621 Type 2 diabetes mellitus with foot ulcer (principal); E87.2 Acidosis; L03.115 Cellulitis of right lower limb; E11.628 Type 2 diabetes mellitus with other skin complications; N17.9 Acute kidney failure, unspecified; D72.829 Elevated white blood cell count, unspecified; N18.31 Chronic kidney disease, stage 3a; E11.22 Type 2 diabetes mellitus with diabetic chronic kidney disease; E11.42 Type 2 diabetes mellitus with diabetic polyneuropathy; E11.51 Type 2 diabetes mellitus with diabetic peripheral angiopathy without gangrene; E78.5 Hyperlipidemia, unspecified; E86.0 Dehydration; I25.10 Atherosclerotic heart disease of native coronary artery without angina pectoris; I13.10 Hypertensive heart and chronic kidney disease without heart failure, with stage 1 through stage 4 chronic kidney disease, or unspecified chronic kidney disease; Z20.822 Contact with and (suspected) exposure to COVID-19; I25.5 Ischemic cardiomyopathy; I25.82 Chronic total occlusion of coronary artery; I95.2 Hypotension due to drugs; L08.9 Local infection of the skin and subcutaneous tissue, unspecified; L84 Corns and callosities; M19.90 Unspecified osteoarthritis, unspecified site; M81.0 Age-related osteoporosis without current pathological fracture; Z79.2 Long term (current) use of antibiotics; Z79.4 Long term (current) use of insulin; Z79.82 Long term (current) use of aspirin; Z79.899 Other long term (current) drug therapy; Z82.49 Family history of ischemic heart disease and other diseases of the circulatory system; Z83.3 Family history of diabetes mellitus; Z96.651 Presence of right artificial knee joint; Z89.422 Acquired absence of other left toe(s)
CPT/HCPCS: 36415; 36573; 71045; 80053; 80202; 81001; 82565; 83605; 83690; 83735; 83880; 84484; 85025; 85610; 85652; 85730; 86140; 86850; 86900; 86901; 87040; 87070; 87075; 87086; 87205; 87635; 93005; 93306; 96361; 96365; 96366; 96367; 96368; 96372; 99291

== ENCOUNTER → 2022-11-06 | Outpatient (CLI) | payer MEDICARE, OTHER ==
--- NOTE | 2022-11-06 15:16 | US ---
EXAMINATION TYPE: US arterial LE single level DATE OF EXAM: 11/06/2022 1:48 PM CLINICAL HISTORY: I73.9 PERIPHERAL VASCULAR DISEASE, UNSPECIFIED. Patient states bilateral feet feel numb. Right 2nd toe removed due to nonhealing wound x 2-3 years ago History of: Smoker: No Hypertension: Takes medication Diabetic: Yes Hyperlipidemia: Yes TIA/CVA: No Previous Vascular Surgery: No CAD: Yes MO: No Vascular Ulcers: No Claudication: No Gangrene: No Doppler Waveforms: Right: Biphasic Left: Biphasic Pressure Gradients: Right Brachial Pressure: 80 Left Brachial Pressure: 102 Bilateral pressures taken twice Ankle-Brachial Indices: Right: 1.46 Left: 1.47 Toe Brachial Indices: Right: 0.57 Left: 0.77 IMPRESSION: Abnormal elevated bilateral ABIs consistent with calcified noncompressible vessels. Nond iagnostic study. Follow-up advised.
== END | disposition home or self-care (01) ==
LOC: RADUSWWP 12:59
PROVIDERS: ATTEND Internal Medicine
DX: I73.9 Peripheral vascular disease, unspecified (principal); E78.5 Hyperlipidemia, unspecified; E11.51 Type 2 diabetes mellitus with diabetic peripheral angiopathy without gangrene; I10 Essential (primary) hypertension; I25.10 Atherosclerotic heart disease of native coronary artery without angina pectoris
CPT/HCPCS: 93922

== ENCOUNTER 2022-12-18 13:20 | Inpatient (IN) | payer OTHER ==
[2022-12-18] MEDS ORDERED: HYDROmorphone 1 MG/ML 1 ML SYRINGE IVP STA (13:45)
--- NOTE | 2022-12-18 13:57 | ED ---
General Adult HPI - General Chief complaint: Extremity Injury, Lower Stated complaint: Fall Time Seen by Provider: 12/18/22 13:27 Source: patient, EMS, RN notes reviewed Mode of arrival: EMS Limitations: no limitations - History of Present Illness Initial comments: Patient is a pleasant 62-year-old male presenting to the emergency Department with complaints of bilateral knee pain. Onset of symptoms was prior to arrival. Patient was using his walker when his knee gave out on him. Patient states this does occur frequent only. Patient fell on his bilateral anterior knees. Patient has discomfort more right knee the left. Patient did have difficulty with walking and did need to come in by EMS. No head injury or loss of consciousness. No other area of injury or concern. - Related Data Home Medications Medication Instructions Recorded Confirmed Aspirin [Adult Low Dose Aspirin EC] 81 mg PO DAILY 07/19/20 10/20/21 Baclofen 10 mg PO BID 07/19/20 10/20/21 Ergocalciferol (Vitamin D2) 1,250 mcg PO Q30D 07/19/20 10/20/21 [Vitamin D2 (50,000 Iu)] Gabapentin 600 mg PO BID 07/19/20 10/20/21 Glimepiride [Amaryl] 4 mg PO BID 07/19/20 10/20/21 Atorvastatin Calcium [Lipitor] 40 mg PO DAILY 10/20/21 10/20/21 Cholecalciferol [Vitamin D3 (25 50 mcg PO DAILY 10/20/21 10/20/21 Mcg = 1000 Iu)] traMADol HCL 100 mg PO TID 10/20/21 10/20/21 Previous Rx's Medication Instructions Recorded Metoprolol Succinate (ER) [Toprol 50 mg PO DAILY #90 tab 10/23/21 XL] lisinopriL [Zestril] 10 mg PO DAILY #90 tab 10/23/21 Insulin Glargine [Lantus Vial] 27 unit SQ DAILY #0 10/24/21 cefTRIAXone [Rocephin] 2 gm IVPB Q24H #42 each 10/24/21 metroNIDAZOLE [Flagyl] 500 mg PO TID #90 tab 10/24/21 Allergies Allergy/AdvReac Type Severity Reaction Status Date / Time No Known Allergies Allergy Verified 12/18/22 13:27 Review of Systems ROS Statement: Those systems with pertinent positive or pertinent negative responses have been documented in the HPI. ROS Other: All systems not noted in ROS Statement are negative. Constitutional: Denies: fever Eyes: Denies: eye pain ENT: Denies: ear pain Respiratory: Denies: cough Cardiovascular: Denies: chest pain Endocrine: Denies: fatigue Gastrointestinal: Denies: abdominal pain Genitourinary: Denies: dysuria Musculoskeletal: Reports: as per HPI. Denies: back pain Skin: Denies: rash Neurological: Denies: weakness Past Medical History Past Medical History: Chest Pain / Angina, Diabetes Mellitus, Hyperlipidemia, Hypertension, Osteoarthritis (OA), Pneumonia, Sleep Apnea/CPAP/BIPAP Additional Past Medical History / Comment(s): DM 2, History of Any Multi-Drug Resistant Organisms: None Reported Past Surgical History: Hernia Repair, Joint Replacement, Orthopedic Surgery Additional Past Surgical History / Comment(s): surgery on left hand pointer finger; R knee replacement, removal left second toe Past Anesthesia/Blood Transfusion Reactions: No Reported Reaction Past Psychological History: No Psychological Hx Reported Smoking Status: Never smoker Past Alcohol Use History: None Reported Past Drug Use History: None Reported - Past Family History Father Family Medical History: AICD/Pacemaker Mother Family Medical History: No Reported History, Renal Disease Brother(s) Family Medical History: No Reported History Sister(s) Family Medical History: No Reported History Son(s) Family Medical History: No Reported History Daughter(s) Family Medical History: No Reported History General Exam Limitations: no limitations General appearance: alert, in no apparent distress Head exam: Present: atraumatic Eye exam: Present: normal appearance Neck exam: Present: normal inspection. Absent: tenderness Respiratory exam: Present: normal lung sounds bilaterally Cardiovascular Exam: Present: regular rate, normal rhythm Expanded Peripheral pulses: 2+: Dorsalis Pedis (R), Dorsalis Pedis (L) GI/Abdominal exam: Present: soft. Absent: tenderness Extremities exam: Present: tenderness (Mild tenderness left lower anterior knee. Moderate tenderness right proximal tib-fib with swelling, minimal tenderness right anterior knee) Neurological exam: Present: alert Psychiatric exam: Present: normal affect, normal mood Skin exam: Present: abrasion (Bilateral anterior knees) Course Vital Signs 12/18/22 12/18/22 12/18/22 13:21 13:54 14:42 Temperature 98.0 F Pulse Rate 72 Respiratory 18 Rate Blood Pressure 104/71 111/65 95/62 O2 Sat by Pulse 96 Oximetry Medical Decision Making - Medical Decision Making Was pt. sent in by a medical professional or institution (CARLOZ Hanks, VB NET DEVELOPER, urgent care, hospital, or [place] health care facility...) When possible be specific @ -No Did you speak to anyone other than the patient for history (EMS, parent, family, police, friend...)? What history was obtained from this source @ -No Did you review nursing and triage notes (agree or disagree)? Why? @ -I reviewed and agree with nursing and triage notes Were old charts reviewed (outside hosp., previous admission, EMS record, old EKG, old radiological studies, urgent care reports/EKG's, [place] health care facility records)? Report findings @ -No old charts were reviewed Differential Diagnosis (chest pain, altered mental status, abdominal pain women, abdominal pain men, vaginal bleeding, weakness, fever, dyspnea, syncope, headache, dizziness, GI bleed, back pain, seizure, CVA, palpatations, mental health)? @ -not applicable EKG interpreted by me (3pts min.). @ -As above X-rays interpreted by me (1pt min.). @ -Bilateral knee and right tib-fib x-rays show proximal right tibia fibula fracture extending to the prosthesis CT interpreted by me (1pt min.). @ -None done U/S interpreted by me (1pt. min.). @ -None done What testing was considered but not performed or refused? (CT, X-rays, U/S, labs)? Why? @ -None What meds were considered but not given or refused? Why? @ -None Did you discuss the management of the patient with other professionals (professionals i.e. CARLOZ Hanks, VB NET DEVELOPER, lab, RT, psych nurse, case management social worker, biometrics technician, teacher, special skills officer, behavioral health case manager)? Give summary @ -Case was discussed with Dr. Biggs who feels case can be managed nonoperatively. He does recommend knee immobilizer and follow-up Was smoking cessation discussed for >3mins.? @ -No Was critical care preformed (if so, how long)? @ -No Were there social determinants of health that impacted care today? How? (Homelessness, low income, unemployed, alcoholism, drug addiction, transportation, low edu. Level, literacy, decrease access to med. care, [facility], rehab)? @ -No Was there de-escalation of care discussed even if they declined (Discuss DNR or withdrawal of care, Hospice)? DNR status @ -No What co-morbidities impacted this encounter? (DM, HTN, Smoking, COPD, CAD, Cancer, CVA, ARF, Chemo, Hep., AIDS, mental health diagnosis, sleep apnea, morbid obesity)? @ -None Was patient admitted / discharged? Hospital course, mention meds given and route, prescriptions, significant lab abnormalities, going to OR and other pertinent info. @ -Patient reevaluated and updated on results and need for follow-up Undiagnosed new problem with uncertain prognosis? @ -No Drug Therapy requiring intensive monitoring for toxicity (Heparin, Nitro, Insulin, Cardizem)? @ -No Were any procedures done? @ -No Diagnosis/symptom? @ -Proximal tibia/fibula fracture Acute, or Chronic, or Acute on Chronic? @ -Acute Uncomplicated (without systemic symptoms) or Complicated (systemic symptoms)? @ -default Side effects of treatment? @ -No Exacerbation, Progression, or Severe Exacerbation? @ -No Poses a threat to life or bodily function? How? (Chest pain, [place], [place], pneumonia, PE, COPD, DKA, ARF, appy, cholecystitis, CVA, Diverticulitis, Homicidal, Suicidal, threat to staff... and all critical care pts) @ -No Disposition Clinical Impression: Fracture of proximal end of tibia, Fracture, fibula, proximal Disposition: HOME SELF-CARE Condition: Stable Additional Instructions: Please follow-up with Dr. Biggs and your primary care physician in the next day or 2 for recheck. Use knee immobilizer. Also use walker. Return for increased pain, swelling, unable take care of herself, worsening symptoms or other concerns. Ice to affected area. Is patient prescribed a controlled substance at d/c from ED?: No Referrals: Lewis Wing MD [Primary Care Provider] - 1-2 days Ever Biggs DO [Doctor of Osteopathic Medicine] - 1-2 days Time of Disposition: 15:43
[2022-12-18] MEDS ORDERED: DIPH,PERTUS(ACELL)TETVAC-LF 0.5 ML VIAL IM ONE (14:08)
--- NOTE | 2022-12-18 14:43 | XR ---
EXAMINATION TYPE: XR knee complete bilateral, XR tibia fibula RT DATE OF EXAM: 12/18/2022 CLINICAL HISTORY: Fall injury with pain TECHNIQUE: Three views of the bilateral knees are obtained. COMPARISON: Prior right knee x-ray 2014. FINDINGS: There is no acute fracture/dislocation evident in the left knee. Moderate tricompartment j oint space loss and spurring in the left knee. The overlying soft tissue appears unremarkable. Images of right knee redemonstrate metallic prosthesis from total knee arthroplasty. There is acute c omminuted slightly displaced fracture through the right fibular head extending into the proximal meta diaphysis. There is acute comminuted displaced fracture through the proximal metaphysis of the right tibia with some impaction and lateral and posterior displacement of the distal fracture fragment. Fra cture line appears to extend to the proximal tibial metallic component on lateral view. Moderate to l arge sized right suprapatellar joint effusion is seen. No additional acute displaced fracture in the distal right tibia or fibula. A few scattered soft tissue phleboliths are present. IMPRESSION: There are acute comminuted displaced fracture through the proximal tibia involving the m etallic prosthesis and the proximal fibula as detailed above.
[2022-12-18] MEDS ORDERED: ACET/COD 300 MG/30 MG STARTER PACK 6 TAB BTL PO STA (15:41)
[2022-12-18] MEDS ORDERED: ACETAMINOPHEN TAB 325 MG TAB PO PRN (16:56)
[2022-12-18] MEDS ORDERED: HYDROmorphone 0.5 MG/0.5 ML SYRINGE IVP PRN (16:56)
[2022-12-18] MEDS ORDERED: HYDROmorphone 1 MG/ML 1 ML SYRINGE IVP PRN (16:56)
[2022-12-18] MEDS ORDERED: NALOXONE 0.4 MG/ML 1 ML VIAL IV PRN (16:56)
--- NOTE | 2022-12-18 16:56 | ED ---
Medical Decision Making - Medical Decision Making Call received from Dr. Wing who does not feel patient can be discharged home. I did discuss case again with Dr. Biggs who is agreeable with admission with medicine consult for placement. Disposition Clinical Impression: Fracture of proximal end of tibia, Fracture, fibula, proximal Disposition: ADMITTED IP TO THIS [facility] Condition: Stable Additional Instructions: Please follow-up with Dr. Biggs and your primary care physician in the next day or 2 for recheck. Use knee immobilizer. Also use walker. Return for increased pain, swelling, unable take care of herself, worsening symptoms or other concerns. Ice to affected area. Is patient prescribed a controlled substance at d/c from ED?: No Referrals: Lewis Wing MD [Primary Care Provider] - 1-2 days Ever Biggs DO [Doctor of Osteopathic Medicine] - 1-2 days Time of Disposition: 16:56
[2022-12-18 17:46] LABS: HGB 13.3 gm/dL (13.0-17.5); MCH 29.6 pg (25.0-35.0); MCHC 31.7 g/dL (31.0-37.0); MCV 93.2 fL (80.0-100.0); Mean Platelet Volume 9.1; Platelet Count 166 k/uL (150-450); RDW 14.8 % (11.5-15.5); WBC 11.1 k/uL (3.8-10.6)
[2022-12-18 18:02] LABS: Calcium 8.4 mg/dL (8.4-10.2); Potassium 5.5 mmol/L (3.5-5.1)
[2022-12-18 19:29] LABS: Lymphocytes # (M) 1.22 k/uL (1.0-4.8); Monocytes # (M) 0.22 k/uL (0-1.0); Neutrophils # (M) 9.66 k/uL (1.3-7.7); Neutrophils % (M) 87 %; Nucleated Red Blood Cells 0 /100 WBC (0-0); Total Cells Counted 100
[2022-12-19 00:13] LABS: Glucose,Whole Blood 302 mg/dL (70-110)
[2022-12-19] MEDS: SODIUM CHLORIDE 0.9% 1,000 ML IV SCH ×2 (00:42→15:29)
[2022-12-19] MEDS: GLIMEPIRIDE 4 MG TAB PO SCH ×3 (00:42→20:36)
[2022-12-19 06:09] LABS: Glucose,Whole Blood 235 mg/dL (70-110)
[2022-12-19] MEDS: ASPIRIN 81 MG PO SCH (08:39)
[2022-12-19] MEDS: METOPROLOL SUCCINATE (ER) 50 MG TAB.ER.24H PO SCH (08:39)
[2022-12-19] MEDS: GABAPENTIN 300 MG CAP PO SCH ×2 (08:39→20:35)
[2022-12-19] MEDS: lisinopriL 10 MG TAB PO SCH (08:39)
[2022-12-19] MEDS: traMADol 50 MG TAB PO SCH ×3 (08:39→20:33)
[2022-12-19] MEDS: ATORVASTATIN 40 MG TAB PO SCH (08:39)
[2022-12-19] MEDS: amLODIPine 5 MG TAB PO SCH (08:39)
[2022-12-19] MEDS: BACLOFEN 10 MG TAB PO SCH ×2 (08:39→20:35)
[2022-12-19] MEDS ORDERED: POTASSIUM CHLORIDE ER 20 MEQ TAB.ER PO SCH (09:00)
[2022-12-19] MEDS ORDERED: FUROSEMIDE 40 MG TAB PO SCH (09:00)
[2022-12-19] MEDS ORDERED: ENOXAPARIN 30 MG/0.3 ML SYRINGE SQ SCH (09:00)
[2022-12-19] MEDS ORDERED: HYDROcodone/APAP 7.5-325MG 1 EACH TAB PO PRN (09:36)
--- NOTE | 2022-12-19 09:45 | P.HPOR ---
History of Present Illness H&P Date: 12/19/22 Chief Complaint: Right proximal tibia/fibular fracture Patient is a 62-year-old male who presented to [facility] on 12/18/2022 for evaluation of an injury to the right lower extremity. Apparently the patient was utilizing a walker in his home when he tripped and fell resulting in a hyperextension injury of both knees. Patient had immediate deformity and pain and was unable to ambulate. Patient was brought to the hospital via EMS for further evaluation. Upon arrival to the hospital, imaging and lab tests were obtained. Images demonstrated a proximal right tibia and fibular fracture. He should has a notable right total knee arthroplasty, components appeared unchanged. No acute fractures or dislocations are appreciated in the left knee. After discussing case with ER staff, it was determined the patient would not be able to go home, he was placed under our service for admission with internal medicine consult for management. Patient was evaluated at bedside today, he is utilizing a knee immobilizer. He notes most of discomfort surrounding the right knee. He admits to muscle spasms in the upper and lower leg. He denies any pain in the groin on the right side at this time. He denies any new onset pain in the bilateral upper extremities. He denies any acute pain of the left lower extremity at this time. Patient admits to the right total knee arthroplasty being done by different orthopedic provider in 2013 or 2014. Review of Systems Constitutional: Reports as per HPI Past Medical History Past Medical History: Chest Pain / Angina, Diabetes Mellitus, Hyperlipidemia, Hypertension, Osteoarthritis (OA), Pneumonia, Sleep Apnea/CPAP/BIPAP Additional Past Medical History / Comment(s): DM 2, PAD History of Any Multi-Drug Resistant Organisms: None Reported Past Surgical History: Hernia Repair, Joint Replacement, Orthopedic Surgery Additional Past Surgical History / Comment(s): surgery on left hand pointer finger; R knee replacement, removal left second toe Past Anesthesia/Blood Transfusion Reactions: No Reported Reaction Past Psychological History: No Psychological Hx Reported Smoking Status: Never smoker Past Alcohol Use History: None Reported Past Drug Use History: None Reported - Past Family History Father Family Medical History: AICD/Pacemaker Mother Family Medical History: No Reported History, Renal Disease Brother(s) Family Medical History: No Reported History Sister(s) Family Medical History: No Reported History Son(s) Family Medical History: No Reported History Daughter(s) Family Medical History: No Reported History Medications and Allergies Home Medications Medication Instructions Recorded Confirmed Type Baclofen 10 mg PO BID 07/19/20 12/18/22 History Gabapentin 600 mg PO BID 07/19/20 12/18/22 History Glimepiride [Amaryl] 4 mg PO BID 07/19/20 12/18/22 History Atorvastatin Calcium [Lipitor] 40 mg PO DAILY 10/20/21 12/18/22 History traMADol HCL 100 mg PO TID 10/20/21 12/18/22 History Metoprolol Succinate (ER) [Toprol 50 mg PO DAILY #90 tab 10/23/21 12/18/22 Rx XL] lisinopriL [Zestril] 10 mg PO DAILY #90 tab 10/23/21 12/18/22 Rx Aspirin EC [Ecotrin Low Dose] 81 mg PO DAILY 12/18/22 12/18/22 History Furosemide [Lasix] 40 mg PO DAILY 12/18/22 12/18/22 History Potassium Chloride ER [K-Dur 20] 20 meq PO DAILY 12/18/22 12/18/22 History amLODIPine [Norvasc] 5 mg PO DAILY 12/18/22 12/18/22 History Allergies Allergy/AdvReac Type Severity Reaction Status Date / Time No Known Allergies Allergy Verified 12/18/22 17:11 Physical Examination Right lower extremity: Immobilizer was removed today bedside for exam. There is an abrasion over the anterior aspect of the knee. There is a well-healed scar over the anterior asp ect of the knee from his previous total knee replacement. Quadriceps tendon and patellar tendon are appreciated. There is obvious swelling and effusion present around the knee. Compartments of the upper and lower leg remained soft and compressible. The calf is soft, no tenderness with palpation. Range of motion of knee not assessed. Logroll maneuver reproduces no groin pain. Plantar flexion, dorsiflexion, EHL, FHL were intact. Dorsalis pedis pulses 2+ Sensory exam to light touch is intact at the extremity Results - Labs Labs: Abnormal Lab Results - Last 24 Hours (Table) 12/18/22 12/18/22 12/19/22 Range/Units 17:29 17:29 00:12 WBC 11.1 H (3.8-10.6) k/uL Neutrophils # (Manual) 9.66 H (1.3-7.7) k/uL Sodium 133 L (137-145) mmol/L Potassium 5.5 H (3.5-5.1) mmol/L BUN 52 H (9-20) mg/dL Creatinine 1.92 H (0.66-1.25) mg/dL Glucose 414 H (74-99) mg/dL POC Glucose (mg/dL) 302 H (70-110) mg/dL 12/19/22 Range/Units 06:07 WBC (3.8-10.6) k/uL Neutrophils # (Manual) (1.3-7.7) k/uL Sodium (137-145) mmol/L Potassium (3.5-5.1) mmol/L BUN (9-20) mg/dL Creatinine (0.66-1.25) mg/dL Glucose (74-99) mg/dL POC Glucose (mg/dL) 235 H (70-110) mg/dL H & H 12/18/22 Range/Units 17:29 Hgb 13.3 (13.0-17.5) gm/dL Hct 42.0 (39.0-53.0) % Result Diagrams: 12/18/22 17:29 12/18/22 17:29 - Diagnostic results Knee x-ray: report reviewed, image reviewed (X-rays demonstrate total knee arthroplasty components, no obvious lucencies are appreciated. Obvious fracture to the proximal tibia distal to the tibial implant with its placement. Minimally displaced right proximal fibula fracture also noted) Ankle/Foot x-ray: report reviewed, image reviewed ( tibia and fibula x-rays were also reviewed, the images that included the ankle demonstrated no acute fractures or dislocations. No obvious widening in the mortise joint appreciated. ) Assessment and Plan Assessment: Right proximal tibia fracture Right proximal fibula fracture Status post fall Previous right total knee arthroplasty, stable appearing components Other medical comorbidities Plan: Dr. Biggs was initially able to discuss with the ER staff regarding this patient prior to admission. We are recommending no acute orthopedic surgical intervention at this time Recommending conservative measures at this time, he will continue use of the knee immobilizer. A prescription was placed for a long hinged knee brace, case management was notified. Patient will require this brace for an extended period of time. We will start out locked in full extension and plan to increase flexion over time. Anticipate at least 6 weeks of nonweightbearing status. With patients current medical state, recommending subacute rehab placement. This was also discussed with case management today DVT prophylaxis, continue Lovenox during inpatient stay. Architecture Technician subcu medication versus oral at discharge Pain control, patient normally takes tramadol, he also takes gabapentin these have been restarted. We'll add [place] as needed. Nonweightbearing right lower extremity, knee must remain in full extension Internal medicine recommendations appreciated Discharge planning: Anticipate discharge to subacute rehab in the next 2448 hour Time with Patient: Less than 30
[2022-12-19] MEDS: DAPAGLIFLOZIN PROPANEDIOL 10 MG TABLET PO SCH (10:52)
[2022-12-19 11:39] LABS: Glucose,Whole Blood 289 mg/dL (70-110)
[2022-12-19] MEDS: INSULIN ASPART (NovoLOG) 100 UNIT/ML VIAL SQ SCH ×5 (11:58→20:35)
[2022-12-19 16:47] LABS: Glucose,Whole Blood 212 mg/dL (70-110)
[2022-12-19 20:06] LABS: Glucose,Whole Blood 215 mg/dL (70-110)
[2022-12-20 06:29] LABS: Glucose,Whole Blood 240 mg/dL (70-110)
[2022-12-20] MEDS: INSULIN ASPART (NovoLOG) 100 UNIT/ML VIAL SQ SCH ×7 (06:36→21:24)
[2022-12-20] MEDS: SODIUM CHLORIDE 0.9% 1,000 ML IV SCH ×2 (07:38→16:59)
[2022-12-20] MEDS: GABAPENTIN 300 MG CAP PO SCH ×2 (07:51→21:24)
[2022-12-20] MEDS: ASPIRIN 81 MG PO SCH (07:51)
[2022-12-20] MEDS: INSULIN DETEMIR (LEVEMIR) 100 UNIT/ML SYR SQ SCH (07:51)
[2022-12-20] MEDS: ATORVASTATIN 40 MG TAB PO SCH (07:52)
[2022-12-20] MEDS: traMADol 50 MG TAB PO SCH ×3 (07:52→21:23)
[2022-12-20] MEDS: BACLOFEN 10 MG TAB PO SCH ×2 (07:52→21:24)
[2022-12-20] MEDS: amLODIPine 5 MG TAB PO SCH (07:52)
[2022-12-20] MEDS: GLIMEPIRIDE 4 MG TAB PO SCH ×2 (07:52→21:24)
[2022-12-20] MEDS: METOPROLOL SUCCINATE (ER) 50 MG TAB.ER.24H PO SCH (07:52)
[2022-12-20] MEDS: ENOXAPARIN 40 MG/0.4 ML SYRINGE SQ SCH (07:52)
[2022-12-20] MEDS: lisinopriL 10 MG TAB PO SCH (07:52)
[2022-12-20] MEDS: DAPAGLIFLOZIN PROPANEDIOL 10 MG TABLET PO SCH (07:53)
[2022-12-20 11:33] LABS: Glucose,Whole Blood 295 mg/dL (70-110)
--- NOTE | 2022-12-20 13:43 | P.PN ---
Subjective Progress Note Date: 12/20/22 Principal diagnosis: Right proximal tibia and fibula fracture Patient was evaluated at bedside today, he is resting his hospital chair. Patient was fitted for the hinge knee brace is locked in full extension. He states the pain is manageable at this time with current medications. He denies any headaches, lightheadedness, chest pain or shortness of breath Objective - Vital Signs Vital signs: Vital Signs Temp 99.0 F 12/20/22 07:10 Pulse 89 12/20/22 07:10 Resp 19 12/20/22 07:10 BP 115/70 12/20/22 07:10 Pulse Ox 92 L 12/20/22 07:10 FiO2 Intake & Output 12/19/22 12/20/22 12/20/22 18:59 06:59 18:59 Intake Total 120 300 236 Output Total 1500 Balance 120 -1200 236 Intake: Oral 120 300 236 Output: Urine 1500 Other: # Voids 2 # Bowel Movements 0 - Exam Right lower extremity: 2 small abrasions over the knee are noted, there was a bandage was placed yesterday, this was removed today, no active drainage Effusion is present over the knee, there is soft tissue swelling noted in the lower leg Calf is soft, no tenderness with palpation Tenderness with palpation is noted distal to the knee Plantar flexion, dorsiflexion, EHL, FHL are intact Sensory exam to light touch is intact through out the extremity - Labs CBC & Chem 7: 12/18/22 17:29 12/18/22 17:29 Labs: Abnormal Lab Results - Last 24 Hours (Table) 12/19/22 12/19/22 12/20/22 Range/Units 16:45 20:05 06:28 POC Glucose (mg/dL) 212 H 215 H 240 H (70-110) mg/dL 12/20/22 Range/Units 11:32 POC Glucose (mg/dL) 295 H (70-110) mg/dL Assessment and Plan Assessment: Right proximal tibia fracture Right proximal fibula fracture Status post fall Previous right total knee arthroplasty, stable appearing components Other medical comorbidities Plan: Recommending conservative measures at this time, continue hinged knee brace locked in full extension Anticipate at least 6 weeks of nonweightbearing status. With patients current medical state, recommending subacute rehab placement. This was also discussed with case management today DVT prophylaxis, continue Lovenox during inpatient stay Pain control, patient normally takes tramadol, he also takes gabapentin these have been restarted. We'll add [place] as needed. Nonweightbearing right lower extremity, knee must remain in full extension Internal medicine recommendations appreciated Discharge planning: Anticipate discharge to subacute rehab in the next 2448 hour Time with Patient: Less than 30
[2022-12-20 16:22] LABS: Glucose,Whole Blood 235 mg/dL (70-110)
[2022-12-20] MEDS ORDERED: BACITRACIN OINT 1 EACH PACKET TOPICAL ONE (18:30)
[2022-12-20 21:01] LABS: Glucose,Whole Blood 202 mg/dL (70-110)
[2022-12-21 05:24] LABS: Glucose,Whole Blood 164 mg/dL (70-110)
[2022-12-21] MEDS: INSULIN ASPART (NovoLOG) 100 UNIT/ML VIAL SQ SCH ×7 (06:43→20:16)
[2022-12-21] MEDS: METOPROLOL SUCCINATE (ER) 50 MG TAB.ER.24H PO SCH (08:15)
[2022-12-21] MEDS: lisinopriL 10 MG TAB PO SCH (08:15)
[2022-12-21] MEDS: amLODIPine 5 MG TAB PO SCH (08:16)
[2022-12-21] MEDS: traMADol 50 MG TAB PO SCH ×3 (08:21→20:15)
[2022-12-21] MEDS: ATORVASTATIN 40 MG TAB PO SCH (08:22)
[2022-12-21] MEDS: ASPIRIN 81 MG PO SCH (08:22)
[2022-12-21] MEDS: GLIMEPIRIDE 4 MG TAB PO SCH ×2 (08:22→20:16)
[2022-12-21] MEDS: DAPAGLIFLOZIN PROPANEDIOL 10 MG TABLET PO SCH (08:22)
[2022-12-21] MEDS: INSULIN DETEMIR (LEVEMIR) 100 UNIT/ML SYR SQ SCH (08:23)
[2022-12-21] MEDS: ENOXAPARIN 40 MG/0.4 ML SYRINGE SQ SCH (08:23)
[2022-12-21] MEDS: GABAPENTIN 300 MG CAP PO SCH ×2 (08:23→20:16)
[2022-12-21] MEDS: BACLOFEN 10 MG TAB PO SCH ×2 (08:23→20:16)
--- NOTE | 2022-12-21 09:37 | P.PN ---
Subjective Progress Note Date: 12/21/22 Principal diagnosis: Right proximal tibia and fibula fracture Patient was evaluated at bedside today, he is resting his hospital bed . [id number] was not able to maintain yesterday, patient will remain in hospital through the weekend. Patient admits to generalized soreness throughout the right lower extremity. He has no other orthopedic complaints at this time. He currently denies headaches, lightheadedness, chest pain or shortness of breath Objective - Vital Signs Vital signs: Vital Signs Temp 98.1 F 12/21/22 07:30 Pulse 83 12/21/22 07:30 Resp 18 12/21/22 07:30 BP 90/49 12/21/22 07:30 Pulse Ox 92 L 12/21/22 07:30 FiO2 Intake & Output 12/20/22 12/21/22 12/21/22 18:59 06:59 18:59 Intake Total 944 236 Balance 944 236 Intake: Oral 944 236 Other: # Voids 2 2 # Bowel Movements 1 - Exam Right lower extremity: Knee immobilizer remains in place, locked in full extension 2 small anterior aspect of the knee also healing at this, no erythema or drainage noted Effusion is present over the knee, there is soft tissue swelling noted in the lower leg Calf is soft, no tenderness with palpation Tenderness with palpation is noted distal to the knee Plantar flexion, dorsiflexion, EHL, FHL are intact Sensory exam to light touch is intact through out the extremity - Labs CBC & Chem 7: 12/18/22 17:29 12/18/22 17:29 Labs: Abnormal Lab Results - Last 24 Hours (Table) 12/20/22 12/20/22 12/20/22 Range/Units 11:32 16:21 20:59 POC Glucose (mg/dL) 295 H 235 H 202 H (70-110) mg/dL 12/21/22 Range/Units 05:22 POC Glucose (mg/dL) 164 H (70-110) mg/dL Assessment and Plan Assessment: Right proximal tibia fracture Right proximal fibula fracture Status post fall Previous right total knee arthroplasty, stable appearing components Other medical comorbidities Plan: Will place patient back in the immobilizer at this time, we will utilize the hinge knee brace in the future Wound care to skin anterior aspect of the knee DVT prophylaxis, continue Lovenox during inpatient stay Pain control, patient normally takes tramadol, he also takes gabapentin these have been restarted. We'll add [place] as needed. Nonweightbearing right lower extremity, knee must remain in full extension Internal medicine recommendations appreciated Discharge planning: Plan for discharge to subacute rehab on 12/23/2022 Time with Patient: Less than 30
[2022-12-21 09:49] LABS: African American GFR (CKD) 29.7 (60.0-200.0); Albumin 3.5 g/dL (3.8-4.9); Albumin/Globulin Ratio 1.35 (1.60-3.17); Anion Gap 13.6 mmol/L (10.00-18.00); BUN/Creat Ratio 21.23 Ratio (12.00-20.00); Blood Urea Nitrogen 55.2 mg/dL (9.0-27.0); Calcium 8.8 mg/dL (8.7-10.3); Carbon Dioxide 19.4 mmol/L (20.0-27.5); Globulin 2.6 g/dL (1.6-3.3); Non-African American GFR(CKD) 25.7 (60.0-200.0); Potassium 4.3 mmol/L (3.5-5.5); Total Bilirubin 0.6 mg/dL (0.30-1.20); Total Protein 6.1 g/dL (6.2-8.2)
[2022-12-21 09:50] LABS: Basophils # (A) 0.04 X 10*3/uL (0.00-0.10); Basophils % (A) 0.3 %; Eosinophils # (A) 0.06 X 10*3/uL (0.04-0.35); Eosinophils % (A) 0.5 %; HGB 10.6 g/dL (13.0-17.0); Immature Grans, Automated 0.4 %; Lymphocytes # (A) 1.39 X 10*3/uL (0.90-5.00); Lymphocytes % (A) 11.6 %; MCH 29.9 pg (27.0-32.0); MCHC 32.1 g/dL (32.0-37.0); MCV 93.2 fL (80.0-97.0); Mean Platelet Volume 11.7 fL (9.5-12.2); Monocytes # (A) 0.84 X 10*3/uL (0.20-1.00); NRBC Per 100 WBC 0 /100 WBCS (0.0-0.0); Neutrophils # (A) 9.61 X 10*3/uL (1.80-7.70); Neutrophils % (A) 80.2 %; Platelet Count 143 X 10*3/uL (140-440); RBC 3.54 X 10*6/uL (4.40-5.60); RDW 14.6 % (11.5-14.5); WBC 11.99 X 10*3/uL (4.50-10.00)
--- NOTE | 2022-12-21 11:35 | P.CONS ---
History of Present Illness - Reason for Consult Consult date: 12/19/22 Medical management Requesting physician: Ever Biggs - Chief Complaint Right proximal tib-fib/fib fracture through prosthesis - History of Present Illness HISTORY OF PRESENT ILLNESS: This is a 62-year-old male one of my patient with a previous medical history significant for hypertension and hypertensive cardiovascular disease, hyperlipidemia, diabetes mellitus type 2 with hyperglycemia, chronic kidney disease stage IIIA, PAD, diabetic polyneuropathy, coronary artery disease status post left heart catheterization that was done in July 2020 that showed mild disease of the RCA and the chronic totally occluded proximal to mid LAD and chronic totally occluded left circumflex in the mid to distal portion with mild disease of the intermedius, at that time patient was supposed to go pack to have an attempt to open the LAD however the patient did not he has been following with Dr. Velazco on a regular basis, patient presented to the emergency department at [facility] yesterday because after he sustained a fall at home while he was going to the bathroom using his walker and fortunately he turned around and he felt a popping sensation of his right knee and he landed on the ground he skinned his right knee in the left knee his son Dutch pulled him out of the bathroom all the way to the living room try to put him up on the couch, cold 911 because the patient was not able to bear any weight on the right lower extremity, immediate swelling of the right knee as well as right lower extremity patient did have a right total arthroplasty that in the past, patient was evaluated at [facility] department with an x-ray that showed evidence of Roxanol rig ht tib-fib fracture extending into the prosthetic joint, he was seen and admitted under orthopedic surgery and we were asked to see the patient for medical management patient apparently not able to maneuver himself at home since he has a bad left leg and he cannot bear any pressure in the right lower extremity, beside his the primary caregiver of his who has chronic medical issues. Patient will need to be admitted to the hospital for subacute rehab mentation at this time. REVIEW OF SYSTEMS: Constitutional: No documented fever, no chills, no night sweats. No weight change. positive for weakness, positive for fatigue no lethargy. No daytime sleepiness. HEENT: No headache. No blurred vision or double vision, no loss of vision. No loss of Hearing, no ringing in the ears, no dizziness. No nasal drainage or congestion. No epistaxis. No sore throat. Lungs: No shortness of breath, no cough, no sputum production. No wheezing. Reports dyspnea with activity. Cardiovascular: No chest pain, no lower extremity edema. No palpitations. No paroxysmal nocturnal dyspnea. No orthopnea. No lightheadedness or dizziness. No syncopal episodes. Abdominal: Reports no abdominal pain. No nausea, vomiting. No diarrhea. No constipation. No bloody or tarry stools reports loss of appetite. Genitourinary: No dysuria, increased frequency, urgency. No urinary retention. Musculoskeletal: No myalgias. positive for muscle weakness, positive for gait dysfunction, positive for frequent falls. positive for back pain and neck ain neck pain, positive for severe pain in the right knee and leg and can not place pressure on the right leg Integumentary: Right big toe callus, no lesions. No rash or pruritus. No unusual bruising, change of the right big toenail. Neurologic: No aphasia. No facial droop. No change in mentation. No head injury. No headache. No paralysis. No paresthesia. Psychiatric: No depression. No anxiety. No mood swings. Endocrine: abnormal blood sugars. No weight change. PAST MEDICAL HISTORY: CAD status post left heart catheterization back in July 2020 Hypertension and hypertensive cardiovascular disease. Hyperlipidemia. Diabetes mellitus type 2. Diabetic polyneuropathy. PAD. Chronic kidney disease stage IIIa Osteoarthritis PAST SURGICAL HISTORY: Left second toe amputation Right knee replacement Left index finger surgery SOCIAL HISTORY: Patient denies any history of smoking, no history of drinking or drug use or abuse he lives with his ex-. FAMILY HISTORY: Mother at age of 69 from esophageal stricture was not able to eat much and she lost a lot of weight father at age 71 from coronary artery disease and had history of diabetes as well, patient has 2 brothers one with diabetes mellitus type 2 the other one lives in [place] patient has one sister no major medical problem patient has 2 sons and one of them with Crohn disease together with spine and one daughter no major medical problems. PHYSICAL EXAMINATION: General: 62-year-old male laying down in bed in no distress. HEENT: Head is atraumatic, normocephalic, pupils were equal round reactive to light and recommendation, extraocular muscle movement were intact, sclera nonicteric, conjunctivae were pale, mucous membranes of the mouth are somewhat dry. Neck: Supple, no JVP, normal carotid upstroke bilaterally, no lymphadenopathy. Chest: Decreased breath sounds at the bases, few rhonchi, no expiratory wheezes, no chest wall tenderness, no intercostal retractions. Heart: First heart sound is normal, second heart sounds normal there is no zamudio p or murmur. Abdomen: Soft, nontender, nondistended, positive bowel sounds. No hepatosplenomegaly Extremities: There is edema in the right more than than the left leg no calf tenderness DP +1 bilaterally, left second toe amputation Neurologic examination: Patient is awake alert and oriented X3, cranial nerves II-12 appear grossly intact, muscle power were 5 out of 5 in upper extremities and 2 out of 5 in bilateral lower extremities, deep tendon could not be evaluated ASSESSMENT AND PLAN: 1. Right proximal fib tib fracture extending into the prosthetic knee . Patient is nonweightbearing of the right lower extremely was seen by orthopedic surgery was recommended for the patient to see physical therapy and to go for subacute rehab patient as he is not able to bear weight on the left lower extremity as well do to significant arthritis of the left knee. 2. Acute kidney injury on top of chronic kidney disease stage III. Continue IV fluid resuscitation, repeat CMP in the next 24 hours avoid nephrotoxins. 3. Right big toe callus. Stable at this time. 4. Coronary artery disease status post left heart catheterization back in July 2020 that showed chronic totally occluded proximal to mid LAD chronic totally occluded mid total distal LCx mild disease of the intermedius and mild disease of the RCA with heavily calcified vessels. Continue patient on aspirin 81 mg once every day, metoprolol succinate 25 mg orally once every day, atorvastatin 40 mg orally once every day cardiology evaluation is in progress. 5. Hypertension and hypertensive cardiovascular disease. Continue patient on lisinopril 10 mg orally once every day, continue Toprol-XL 25 mg once every day. 6. Hyperlipidemia. Continue low-cholesterol diet and exercise, continue patient on atorvastatin 40 mg orally once every day monitor lipid panel, LDL 55- 70. 7. Diabetes mellitus type 2. Continue patient on Levemir 27 units at bedtime along with the glimeperide 4 mg orally twice every day, we'll start the patient on sliding scale insulin along with NovoLog 7 units before each meal 3 times every day. 8. Diabetic polyneuropathy. Continue gabapentin 300 mg orally twice every day, for creatinine clearance. 9. Osteoarthritis. Continue tramadol 100 mg orally 3 times every day. 10. PAD. Continue aspirin and atorvastatin for secondary prevention. 11. Admit to inpatient. Estimate a length of stay 2 midnights. 12. Full code Past Medical History Past Medical History: Chest Pain / Angina, Diabetes Mellitus, Hyperlipidemia, Hypertension, Osteoarthritis (OA), Pneumonia, Sleep Apnea/CPAP/BIPAP Additional Past Medical History / Comment(s): DM 2, PAD History of Any Multi-Drug Resistant Organisms: None Reported Past Surgical History: Hernia Repair, Joint Replacement, Orthopedic Surgery Additional Past Surgical History / Comment(s): surgery on left hand pointer finger; R knee replacement, removal left second toe Past Anesthesia/Blood Transfusion Reactions: No Reported Reaction Past Psychological History: No Psychological Hx Reported Smoking Status: Never smoker Past Alcohol Use History: None Reported Past Drug Use History: None Reported - Past Family History Father Family Medical History: AICD/Pacemaker Mother Family Medical History: No Reported History, Renal Disease Brother(s) Family Medical History: No Reported History Sister(s) Family Medical History: No Reported History Son(s) Family Medical History: No Reported History Daughter(s) Family Medical History: No Reported History Medications and Allergies Home Medications Medication Instructions Recorded Confirmed Type Baclofen 10 mg PO BID 07/19/20 12/18/22 History Gabapentin 600 mg PO BID 07/19/20 12/18/22 History Glimepiride [Amaryl] 4 mg PO BID 07/19/20 12/18/22 History Atorvastatin Calcium [Lipitor] 40 mg PO DAILY 10/20/21 12/18/22 History traMADol HCL 100 mg PO TID 10/20/21 12/18/22 History Metoprolol Succinate (ER) [Toprol 50 mg PO DAILY #90 tab 10/23/21 12/18/22 Rx XL] lisinopriL [Zestril] 10 mg PO DAILY #90 tab 10/23/21 12/18/22 Rx Aspirin EC [Ecotrin Low Dose] 81 mg PO DAILY 12/18/22 12/18/22 History Furosemide [Lasix] 40 mg PO DAILY 12/18/22 12/18/22 History Potassium Chloride ER [K-Dur 20] 20 meq PO DAILY 12/18/22 12/18/22 History amLODIPine [Norvasc] 5 mg PO DAILY 12/18/22 12/18/22 History Gabapentin 600 mg PO BID #30 tab 12/20/22 Rx Sennosides/Docusate Sodium [Senna 1 each PO DAILY #20 capsule 12/20/22 Rx Plus 8.6-50 mg Softgel] traMADol HCL 50 mg PO Q6H #21 tab 12/20/22 Rx Allergies Allergy/AdvReac Type Severity Reaction Status Date / Time No Known Allergies Allergy Verified 12/18/22 17:11 Physical Exam Vitals: Vital Signs Temp Pulse Pulse Resp BP BP Pulse Ox 12/19/22 08:00 98.3 F 78 20 108/67 93 L 12/19/22 02:00 97.8 F 69 18 118/67 97 12/19/22 00:25 20 12/18/22 19:37 64 20 115/69 94 L 12/18/22 16:27 61 18 105/56 95 12/18/22 14:42 95/62 12/18/22 13:54 111/65 12/18/22 13:21 98.0 F 72 18 104/71 96 Intake and Output 12/18/22 12/19/22 12/19/22 22:59 06:59 14:59 Output Total 600 Balance -600 Output: Urine 600 Other: Voiding Method Urinal Weight 136.078 kg Results CBC & Chem 7: 12/21/22 05:58 12/21/22 05:58 Labs: Abnormal Lab Results - Last 24 Hours (Table) 12/18/22 12/18/22 12/19/22 Range/Units 17:29 17:29 00:12 WBC 11.1 H (3.8-10.6) k/uL Neutrophils # (Manual) 9.66 H (1.3-7.7) k/uL Sodium 133 L (137-145) mmol/L Potassium 5.5 H (3.5-5.1) mmol/L BUN 52 H (9-20) mg/dL Creatinine 1.92 H (0.66-1.25) mg/dL Glucose 414 H (74-99) mg/dL POC Glucose (mg/dL) 302 H (70-110) mg/dL 12/19/22 Range/Units 06:07 WBC (3.8-10.6) k/uL Neutrophils # (Manual) (1.3-7.7) k/uL Sodium (137-145) mmol/L Potassium (3.5-5.1) mmol/L BUN (9-20) mg/dL Creatinine (0.66-1.25) mg/dL Glucose (74-99) mg/dL POC Glucose (mg/dL) 235 H (70-110) mg/dL
--- NOTE | 2022-12-21 11:37 | P.PN ---
Subjective Progress Note Date: 12/20/22 HISTORY OF PRESENT ILLNESS: This is a 62-year-old male one of my patient with a previous medical history significant for hypertension and hypertensive cardiovascular disease, hyperlipidemia, diabetes mellitus type 2 with hyperglycemia, chronic kidney disease stage IIIA, PAD, diabetic polyneuropathy, coronary artery disease status post left heart catheterization that was done in July 2020 that showed mild disease of the RCA and the chronic totally occluded proximal to mid LAD and chronic totally occluded left circumflex in the mid to distal portion with mild disease of the intermedius, at that time patient was supposed to go pack to have an attempt to open the LAD however the patient did not he has been following with Dr. Velazco on a regular basis, patient presented to the emergency department at [facility] yesterday because after he sustained a fall at home while he was going to the bathroom using his walker and fortunately he turned around and he felt a popping sensation of his right knee and he landed on the ground he skinned his right knee in the left knee his son Dutch pulled him out of the bathroom all the way to the living room try to put him up on the couch, cold 911 because the patient was not able to bear any weight on the right lower extremity, immediate swelling of the right knee as well as right lower extremity patient did have a right total arthroplasty that in the past, patient was evaluated at [facility] department with an x-ray that showed evidence of Roxanol right tib-fib fracture extending into the prosthetic joint, he was seen and admitted under orthopedic surgery and we were asked to see the patient for medical management patient apparently not able to maneuver himself at home since he has a bad left leg and he cannot bear any pressure in the right lower extremity, beside his the primary caregiver of his who has chronic medical issues. Patient will need to be admitted to the hospital for subacute rehab mentation at this time. 12/20: Patient is sitting up in bed he struggled a lot moving around spied using a sliding board, he has been seen in consultation by physical therapy as well as 7th grade social studies teacher, we'll plan to send the patient to [facility] on the [place] when the insurance arthritis, his kidney for she does continue to be worsened we will discontinue Farxiga we will adjust gabapentin to 300 mg orally twice every day, discontinue nephrotoxins, continue IV fluid resuscitation the form of normal saline at the 50 mL an hour, ultrasound of the kidneys will be obtained, nephrology consultation. REVIEW OF SYSTEMS: Constitutional: No documented fever, no chills, no night sweats. No weight change. positive for weakness, positive for fatigue no lethargy. No daytime sleepiness. HEENT: No headache. No blurred vision or double vision, no loss of vision. No loss of Hearing, no ringing in the ears, no dizziness. No nasal drainage or congestion. No epistaxis. No sore throat. Lungs: No shortness of breath, no cough, no sputum production. No wheezing. Reports dyspnea with activity. Cardiovascular: No chest pain, no lower extremity edema. No palpitations. No paroxysmal nocturnal dyspnea. No orthopnea. No lightheadedness or dizziness. No syncopal episodes. Abdominal: Reports no abdominal pain. No nausea, vomiting. No diarrhea. No constipation. No bloody or tarry stools reports loss of appetite. Genitourinary: No dysuria, increased frequency, urgency. No urinary retention. Musculoskeletal: No myalgias. positive for muscle weakness, positive for gait dysfunction, positive for frequent falls. positive for back pain and neck ain neck pain, positive for severe pain in the right knee and leg and can not place pressure on the right leg Integumentary: Right big toe callus, no lesions. No rash or pruritus. No unusual bruising, change of the right big toenail. Neurologic: No aphasia. No facial droop. No change in mentation. No head injury. No headache. No paralysis. No paresthesia. Psychiatric: No depression. No anxiety. No mood swings. Endocrine: abnormal blood sugars. No weight change. PHYSICAL EXAMINATION: General: 62-year-old male laying down in bed in no distress. HEENT: Head is atraumatic, normocephalic, pupils were equal round reactive to light and recommendation, extraocular muscle movement were intact, sclera nonicteric, conjunctivae were pale, mucous membranes of the mouth are somewhat dry. Neck: Supple, no JVP, normal carotid upstroke bilaterally, no lymphadenopathy. Chest: Decreased breath sounds at the bases, few rhonchi, no expiratory wheezes, no chest wall tenderness, no intercostal retractions. Heart: First heart sound is normal, second heart sounds normal there is no gallop or murmur. Abdomen: Soft, nontender, nondistended, positive bowel sounds. No hepatosplenomegaly Extremities: There is edema in the right more than than the left leg no calf tenderness DP +1 bilaterally, left second toe amputation Neurologic examination: Patient is awake alert and oriented X3, cranial nerves II-12 appear grossly intact, muscle power were 5 out of 5 in upper extremities and 2 out of 5 in bilateral lower extremities, deep tendon could not be evaluated ASSESSMENT AND PLAN: 1. Right proximal fib tib fracture extending into the prosthetic knee . Patie nt is nonweightbearing of the right lower extremely was seen by orthopedic surgery was recommended for the patient to see physical therapy and to go for subacute rehab patient as he is not able to bear weight on the left lower extremity as well do to significant arthritis of the left knee. 2. Acute kidney injury on top of chronic kidney disease stage III. Continue IV fluid resuscitation, NS at 50 ml /h repeat CMP in the next 24 hours avoid nephrotoxins, ultrasound of the kidney, nephrology consultation. 3. Right big toe callus. Stable at this time. 4. Coronary artery disease status post left heart catheterization back in July 2020 that showed chronic totally occluded proximal to mid LAD chronic totally occluded mid total distal LCx mild disease of the intermedius and mild disease of the RCA with heavily calcified vessels. Continue patient on aspirin 81 mg once every day, metoprolol succinate 25 mg orally once every day, atorvastatin 40 mg orally once every day cardiology evaluation is in progress. 5. Hypertension and hypertensive cardiovascular disease. Continue patient on lisinopril 10 mg orally once every day, continue Toprol-XL 25 mg once every day. 6. Hyperlipidemia. Continue low-cholesterol diet and exercise, continue patient on atorvastatin 40 mg orally once every day monitor lipid panel, LDL 55- 70. 7. Diabetes mellitus type 2. Continue patient on Levemir 27 units at bedtime along with the glimeperide 4 mg orally twice every day, we'll start the patient on sliding scale insulin along with NovoLog 7 units before each meal 3 times every day. 8. Diabetic polyneuropathy. Continue gabapentin 300 mg orally twice every day, for creatinine clearance. 9. Osteoarthritis. Continue tramadol 100 mg orally 3 times every day. 10. PAD. Continue aspirin and atorvastatin for secondary prevention. 11. [facility] [place] hopefully on Friday. Objective - Vital Signs Vital signs: Vital Signs Temp 99.0 F 12/20/22 07:10 Pulse 89 12/20/22 07:10 Resp 19 12/20/22 07:10 BP 115/70 12/20/22 07:10 Pulse Ox 92 L 12/20/22 07:10 FiO2 Intake & Output 12/19/22 12/20/22 12/20/22 18:59 06:59 18:59 Intake Total 120 300 Output Total 1500 Balance 120 -1200 Intake: Oral 120 300 Output: Urine 1500 Other: # Voids 2 # Bowel Movements 0 - Labs CBC & Chem 7: 12/21/22 05:58 12/21/22 05:58 Labs: Abnormal Lab Results - Last 24 Hours (Table) 12/19/22 12/19/22 12/19/22 Range/Units 11:38 16:45 20:05 POC Glucose (mg/dL) 289 H 212 H 215 H (70-110) mg/dL 12/20/22 Range/Units 06:28 POC Glucose (mg/dL) 240 H (70-110) mg/dL
[2022-12-21 11:42] LABS: Glucose,Whole Blood 253 mg/dL (70-110)
[2022-12-21] MEDS: SODIUM CHLORIDE 0.9% 1,000 ML IV SCH (12:30)
--- NOTE | 2022-12-21 12:45 | US ---
EXAMINATION TYPE: US kidneys/renal and bladder DATE OF EXAM: 12/21/2022 COMPARISON: NONE CLINICAL HISTORY: 62-year-old male JARED/CKD3b. Abnormal labs TECHNIQUE: Multiple sonographic images of the kidneys and bladder are obtained. FINDINGS: EXAM MEASUREMENTS: Right Kidney: 13.5 x 6.4 x 6.4 cm Left Kidney: 11.9 x 4.9 x 6.6 cm Right Kidney: Trace perinephric edema. This could be senescent change or due to chronic kidney diseas e. Lateral cortical cyst = 3.6 x 3.5 x 3.5 cm. No hydronephrosis. Left Kidney: Trace perinephric edema. No hydronephrosis or masses seen Bladder: distended, anechoic Bilateral Jets not seen IMPRESSION: No hydronephrosis.
[2022-12-21 16:51] LABS: Glucose,Whole Blood 200 mg/dL (70-110)
[2022-12-21 20:10] LABS: Glucose,Whole Blood 333 mg/dL (70-110)
[2022-12-22] MEDS: SODIUM CHLORIDE 0.9% 1,000 ML IV SCH ×2 (00:09→20:21)
[2022-12-22 05:25] LABS: Glucose,Whole Blood 148 mg/dL (70-110)
[2022-12-22] MEDS: INSULIN ASPART (NovoLOG) 100 UNIT/ML VIAL SQ SCH ×7 (05:50→21:05)
[2022-12-22] MEDS: INSULIN DETEMIR (LEVEMIR) 100 UNIT/ML SYR SQ SCH (06:24)
[2022-12-22] MEDS: ENOXAPARIN 30 MG/0.3 ML SYRINGE SQ SCH (08:43)
[2022-12-22] MEDS: BACLOFEN 10 MG TAB PO SCH ×2 (08:44→21:04)
[2022-12-22] MEDS: traMADol 50 MG TAB PO SCH ×3 (08:44→21:05)
[2022-12-22] MEDS: ATORVASTATIN 40 MG TAB PO SCH (08:44)
[2022-12-22] MEDS: METOPROLOL SUCCINATE (ER) 50 MG TAB.ER.24H PO SCH (08:44)
[2022-12-22] MEDS: GABAPENTIN 300 MG CAP PO SCH ×2 (08:45→21:04)
[2022-12-22] MEDS: lisinopriL 10 MG TAB PO SCH (08:45)
[2022-12-22] MEDS: GLIMEPIRIDE 4 MG TAB PO SCH ×2 (08:45→21:09)
[2022-12-22] MEDS: amLODIPine 5 MG TAB PO SCH (08:45)
[2022-12-22] MEDS: ASPIRIN 81 MG PO SCH (08:45)
[2022-12-22 09:45] LABS: Basophils # (A) 0.04 X 10*3/uL (0.00-0.10); Basophils % (A) 0.4 %; Eosinophils # (A) 0.18 X 10*3/uL (0.04-0.35); Eosinophils % (A) 1.7 %; HCT 31.2 % (39.6-50.0); HGB 9.9 g/dL (13.0-17.0); Immature Grans, Automated 0.5 %; Lymphocytes # (A) 1.37 X 10*3/uL (0.90-5.00); Lymphocytes % (A) 13.1 %; MCH 29.7 pg (27.0-32.0); MCHC 31.7 g/dL (32.0-37.0); MCV 93.7 fL (80.0-97.0); Mean Platelet Volume 10.8 fL (9.5-12.2); Monocytes # (A) 0.72 X 10*3/uL (0.20-1.00); Monocytes % (A) 6.9 %; NRBC Per 100 WBC 0 /100 WBCS (0.0-0.0); Neutrophils # (A) 8.12 X 10*3/uL (1.80-7.70); Neutrophils % (A) 77.4 %; Platelet Count 162 X 10*3/uL (140-440); RBC 3.33 X 10*6/uL (4.40-5.60); RDW 14.6 % (11.5-14.5); WBC 10.48 X 10*3/uL (4.50-10.00)
[2022-12-22 09:50] LABS: Albumin 3.5 g/dL (3.8-4.9); Albumin/Globulin Ratio 1.31 (1.60-3.17); Anion Gap 10.8 mmol/L (10.00-18.00); BUN/Creat Ratio 21.16 Ratio (12.00-20.00); Blood Urea Nitrogen 54.6 mg/dL (9.0-27.0); Calcium 8.8 mg/dL (8.7-10.3); Carbon Dioxide 21.8 mmol/L (20.0-27.5); Globulin 2.6 g/dL (1.6-3.3); Non-African American GFR(CKD) 25.9 (60.0-200.0); Potassium 4.5 mmol/L (3.5-5.5); Total Bilirubin 0.5 mg/dL (0.30-1.20); Total Protein 6.1 g/dL (6.2-8.2)
--- NOTE | 2022-12-22 10:29 | P.NPCON ---
History of Present Illness - Reason for Consult acute renal failure, chronic renal failure - History of Present Illness Reason for consultation: Acute kidney injury on chronic kidney disease History of present illness: Patient is a 62-year-old male seen in renal consultation for acute kidney injury on chronic kidney disease. Patient has chronic kidney disease stage III with baseline creatinine near 1.5. Creatinine was 1.92 on admission and stable at 2.6 the last 2 days. Patient came to the hospital on 12/18/2022 due to knee pain. Patient states he fell and his knee gave out. He is noted to have right tibia and fibular fracture. He's been followed up by orthopedic surgery. Patient does have history of ABGs. He was taking Lasix, SGLT2 inhibitor as well as lisinopril at home. Patient's blood pressure has been on the lower side this admission. It was as low as 90/49 yesterday. Antihypertensives were discontinued. Blood pressure this morning was 130/66. Oral intake is good. No vomiting or diarrhea. Denies use of nonsteroidals recently. No history of coronary artery disease. Denies family history of renal disease. No gross hematuria. No chest pain or shortness of breath. He does have history of CHF with ejection fraction of 45%. Currently has no edema. Vital signs are stable. General: No acute distress. HEENT: Head exam is unremarkable. LUNGS: No audible rhonchi or wheezes. HEART: Rate and Rhythm are regular. ABDOMEN: Obese. No distention. EXTREMITITES: No edema. Past Medical History Past Medical History: Chest Pain / Angina, Diabetes Mellitus, Hyperlipidemia, Hypertension, Osteoarthritis (OA), Pneumonia, Sleep Apnea/CPAP/BIPAP Additional Past Medical History / Comment(s): DM 2, PAD History of Any Multi-Drug Resistant Organisms: None Reported Past Surgical History: Hernia Repair, Joint Replacement, Orthopedic Surgery Additional Past Surgical History / Comment(s): surgery on left hand pointer finger; R knee replacement, removal left second toe Past Anesthesia/Blood Transfusion Reactions: No Reported Reaction Past Psychological History: No Psychological Hx Reported Smoking Status: Never smoker Past Alcohol Use History: None Reported Past Drug Use History: None Reported - Past Family History Father Family Medical History: AICD/Pacemaker Mother Family Medical History: No Reported History, Renal Disease Brother(s) Family Medical History: No Reported History Sister(s) Family Medical History: No Reported History Son(s) Family Medical History: No Reported History Daughter(s) Family Medical History: No Reported History Medications and Allergies Home Medications Medication Instructions Recorded Confirmed Type Baclofen 10 mg PO BID 07/19/20 12/18/22 History Gabapentin 600 mg PO BID 07/19/20 12/18/22 History Glimepiride [Amaryl] 4 mg PO BID 07/19/20 12/18/22 History Atorvastatin Calcium [Lipitor] 40 mg PO DAILY 10/20/21 12/18/22 History traMADol HCL 100 mg PO TID 10/20/21 12/18/22 History Metoprolol Succinate (ER) [Toprol 50 mg PO DAILY #90 tab 10/23/21 12/18/22 Rx XL] lisinopriL [Zestril] 10 mg PO DAILY #90 tab 10/23/21 12/18/22 Rx Aspirin EC [Ecotrin Low Dose] 81 mg PO DAILY 12/18/22 12/18/22 History Furosemide [Lasix] 40 mg PO DAILY 12/18/22 12/18/22 History Potassium Chloride ER [K-Dur 20] 20 meq PO DAILY 12/18/22 12/18/22 History amLODIPine [Norvasc] 5 mg PO DAILY 12/18/22 12/18/22 History Gabapentin 600 mg PO BID #30 tab 12/20/22 Rx Sennosides/Docusate Sodium [Senna 1 each PO DAILY #20 capsule 12/20/22 Rx Plus 8.6-50 mg Softgel] traMADol HCL 50 mg PO Q6H #21 tab 12/20/22 Rx Allergies Allergy/AdvReac Type Severity Reaction Status Date / Time No Known Allergies Allergy Verified 12/18/22 17:11 Physical Exam Vitals: Vital Signs Temp Pulse Resp BP Pulse Ox 12/22/22 08:00 76 18 12/22/22 07:29 98.1 F 76 18 130/66 90 L 12/22/22 01:16 99.0 F 80 18 111/67 91 L 12/21/22 19:22 98.8 F 91 19 93/60 96 12/21/22 13:23 98.1 F 80 20 90/51 95 Intake and Output 12/21/22 12/22/22 12/22/22 22:59 06:59 14:59 Intake Total 236 Output Total 200 Balance 36 Intake: Oral 236 Output: Urine 200 Other: Voiding Method Urinal Urinal # Voids 2 2 # Bowel Movements 0 Results - Lab Results Most recent lab results Calcium 8.8 mg/dL (8.7-10.3) 12/22/22 05:37 12/22/22 05:37 12/22/22 05:37 Assessment and Plan Plan: Assessment: 1. Acute kidney injury secondary to ATN secondary to hypotension. Creatinine 1.92 on admission and stable at 2.6 the last 2 days. UA from October 2022 benign. No hydronephrosis noted on kidney ultrasound. 2. Chronic kidney disease stage IIIa secondary to nephrosclerosis. Baseline creatinine near 1.5. 3. Hypertension with chronic kidney disease. Blood pressure on the lower side this admission. Improved with antihypertensives held. 4. Metabolic acidosis secondary to acute kidney injury. Better. 5. Status post fall with right tibia and fibular fracture. Orthopedic surgery following. 6. Diabetes mellitus. Plan: Stop lisinopril completely. Hold amlodipine for systolic blood pressure less than 120. Encouraged oral intake. Avoid nephrotoxins. Continue to monitor renal function and urine output. Ammonsharon stopped 12/21/2022. Thank you for the consultation. I will continue to follow the patient with you during his hospital stay.
--- NOTE | 2022-12-22 11:17 | P.PN ---
Subjective Progress Note Date: 12/21/22 HISTORY OF PRESENT ILLNESS: This is a 62-year-old male one of my patient with a previous medical history significant for hypertension and hypertensive cardiovascular disease, hyperlipidemia, diabetes mellitus type 2 with hyperglycemia, chronic kidney disease stage IIIA, PAD, diabetic polyneuropathy, coronary artery disease status post left heart catheterization that was done in July 2020 that showed mild disease of the RCA and the chronic totally occluded proximal to mid LAD and chronic totally occluded left circumflex in the mid to distal portion with mild disease of the intermedius, at that time patient was supposed to go pack to have an attempt to open the LAD however the patient did not he has been following with Dr. Velazco on a regular basis, patient presented to the emergency department at [facility] yesterday because after he sustained a fall at home while he was going to the bathroom using his walker and fortunately he turned around and he felt a popping sensation of his right knee and he landed on the ground he skinned his right knee in the left knee his son Dutch pulled him out of the bathroom all the way to the living room try to put him up on the couch, cold 911 because the patient was not able to bear any weight on the right lower extremity, immediate swelling of the right knee as well as right lower extremity patient did have a right total arthroplasty that in the past, patient was evaluated at [facility] department with an x-ray that showed evidence of Roxanol right tib-fib fracture extending into the prosthetic joint, he was seen and admitted under orthopedic surgery and we were asked to see the patient for medical management patient apparently not able to maneuver himself at home since he has a bad left leg and he cannot bear any pressure in the right lower extremity, beside his the primary caregiver of his who has chronic medical issues. Patient will need to be admitted to the hospital for subacute rehab mentation at this time. 12/20: Patient is sitting up in bed he struggled a lot moving around spied using a sliding board, he has been seen in consultation by physical therapy as well as psychotherapist social worker, we'll plan to send the patient to [facility] on [place] when the insurance arthritis, his kidney for she does continue to be worsened we will discontinue Farxiga we will adjust gabapentin to 300 mg orally twice every day, discontinue nephrotoxins, continue IV fluid resuscitation the form of normal saline at the 50 mL an hour, ultrasound of the kidneys will be obtained, nephrology consultation. 12/21: Patient is sitting up in the recliner chair in no apparent distress, he denies any chest pain, shortness breath, his creatinine went up to 2.2, his ultrasound of the kidney did not show evidence of hydronephrosis, we discontinued IV fluid, patient will be seen in consultation by nephrology for further evaluation and recommendation, I discontinued his Farsi get completely, monitor the patient very closely. Patient plan is to go to [facility] on the [place] hopefully Friday morning REVIEW OF SYSTEMS: Constitutional: No documented fever, no chills, no night sweats. No weight change. positive for weakness, positive for fatigue no lethargy. No daytime sleepiness. HEENT: No headache. No blurred vision or double vision, no loss of vision. No loss of Hearing, no ringing in the ears, no dizziness. No nasal drainage or congestion. No epistaxis. No sore throat. Lungs: No shortness of breath, no cough, no sputum production. No wheezing. Reports dyspnea with activity. Cardiovascular: No chest pain, no lower extremity edema. No palpitations. No paroxysmal nocturnal dyspnea. No orthopnea. No lightheadedness or dizziness. No syncopal episodes. Abdominal: Reports no abdominal pain. No nausea, vomiting. No diarrhea. No constipation. No bloody or tarry stools reports loss of appetite. Genitourinary: No dysuria, increased frequency, urgency. No urinary retention. Musculoskeletal: No myalgias. positive for muscle weakness, positive for gait dysfunction, positive for frequent falls. positive for back pain and neck ain neck pain, positive for severe pain in the right knee and leg and can not place pressure on the right leg Integumentary: Right big toe callus, no lesions. No rash or pruritus. No u nusual bruising, change of the right big toenail. Neurologic: No aphasia. No facial droop. No change in mentation. No head injury. No headache. No paralysis. No paresthesia. Psychiatric: No depression. No anxiety. No mood swings. Endocrine: abnormal blood sugars. No weight change. PHYSICAL EXAMINATION: General: 62-year-old male laying down in bed in no distress. HEENT: Head is atraumatic, normocephalic, pupils were equal round reactive to light and recommendation, extraocular muscle movement were intact, sclera nonicteric, conjunctivae were pale, mucous membranes of the mouth are somewhat dry. Neck: Supple, no JVP, normal carotid upstroke bilaterally, no lymphadenopathy. Chest: Decreased breath sounds at the bases, few rhonchi, no expiratory wheezes, no chest wall tenderness, no intercostal retractions. Heart: First heart sound is normal, second heart sounds normal there is no gallop or murmur. Abdomen: Soft, nontender, nondistended, positive bowel sounds. No hepatos plenomegaly Extremities: There is edema in the right more than than the left leg no calf tenderness DP +1 bilaterally, left second toe amputation Neurologic examination: Patient is awake alert and oriented X3, cranial nerves II-12 appear grossly intact, muscle power were 5 out of 5 in upper extremities and 2 out of 5 in bilateral lower extremities, deep tendon could not be evaluated ASSESSMENT AND PLAN: 1. Right proximal fib tib fracture extending into the prosthetic knee . Patient is nonweightbearing of the right lower extremely was seen by orthopedic surgery was recommended for the patient to see physical therapy and to go for subacute rehab patient as he is not able to bear weight on the left lower extremity as well do to significant arthritis of the left knee. 2. Acute kidney injury on top of chronic kidney disease stage III. Monitor the patient CMP, avoid nephrotoxin, discontinue lisinopril, discontinue Farxiga 3. Right big toe callus. Stable at this time. 4. Coronary artery disease status post left heart catheterization back in July 2020 that showed chronic totally occluded proximal to mid LAD chronic totally occluded mid total distal LCx mild disease of the intermedius and mild disease of the RCA with heavily calcified vessels. Continue patient on aspirin 81 mg once every day, metoprolol succinate 25 mg orally once every day, atorvastatin 40 mg orally once every day cardiology evaluation is in progress. 5. Hypertension and hypertensive cardiovascular disease. Continue patient on lisinopril 10 mg orally once every day, continue Toprol-XL 25 mg once every day. 6. Hyperlipidemia. Continue low-cholesterol diet and exercise, continue patient on atorvastatin 40 mg orally once every day monitor lipid panel, LDL 55- 70. 7. Diabetes mellitus type 2. Continue patient on Levemir 27 units at bedtime along with the glimeperide 4 mg orally twice every day, we'll start the patient on sliding scale insulin along with NovoLog 7 units before each meal 3 times every day. 8. Diabetic polyneuropathy. Continue gabapentin 300 mg orally twice every day, for creatinine clearance. 9. Osteoarthritis. Continue tramadol 100 mg orally 3 times every day. 10. PAD. Continue aspirin and atorvastatin for secondary prevention. 11. [facility] [place] hopefully on Friday morning. Objective - Vital Signs Vital signs: Vital Signs Temp 98.1 F 12/22/22 07:29 Pulse 76 12/22/22 08:00 Resp 18 12/22/22 08:00 BP 130/66 12/22/22 07:29 Pulse Ox 90 L 12/22/22 07:29 FiO2 Intake & Output 12/21/22 12/22/22 12/22/22 18:59 06:59 18:59 Intake Total 1416 Output Total 900 Balance 516 Intake: Oral 1416 Output: Urine 900 Other: Voiding Method Urinal Urinal Urinal # Voids 2 # Bowel Movements 0 - Labs CBC & Chem 7: 12/22/22 05:37 12/22/22 05:37 Labs: Abnormal Lab Results - Last 24 Hours (Table) 12/21/22 12/21/22 12/21/22 Range/Units 11:41 16:50 20:08 WBC (4.50-10.00) X 10*3/uL RBC (4.40-5.60) X 10*6/uL Hgb (13.0-17.0) g/dL Hct (39.6-50.0) % MCHC (32.0-37.0) g/dL RDW (11.5-14.5) % Immature Gran # (0.00-0.04) X 10*3/uL Neutrophils # (1.80-7.70) X 10*3/uL BUN (9.0-27.0) mg/dL Creatinine (0.6-1.5) mg/dL Est GFR (CKD-EPI)AfAm (60.0-200.0) Est GFR (CKD-EPI)NonAf (60.0-200.0) BUN/Creatinine Ratio (12.00-20.00) Ratio Glucose (70-110) mg/dL POC Glucose (mg/dL) 253 H 200 H 333 H (70-110) mg/dL AST (14-35) U/L Total Protein (6.2-8.2) g/dL Albumin (3.8-4.9) g/dL Albumin/Globulin Ratio (1.60-3.17) g/dL 12/22/22 12/22/22 12/22/22 Range/Units 05:23 05:37 05:37 WBC 10.48 H (4.50-10.00) X 10*3/uL RBC 3.33 L (4.40-5.60) X 10*6/uL Hgb 9.9 L (13.0-17.0) g/dL Hct 31.2 L (39.6-50.0) % MCHC 31.7 L (32.0-37.0) g/dL RDW 14.6 H (11.5-14.5) % Immature Gran # 0.05 H (0.00-0.04) X 10*3/uL Neutrophils # 8.12 H (1.80-7.70) X 10*3/uL BUN 54.6 H (9.0-27.0) mg/dL Creatinine 2.6 H (0.6-1.5) mg/dL Est GFR (CKD-EPI)AfAm 30.0 L (60.0-200.0) Est GFR (CKD-EPI)NonAf 25.9 L (60.0-200.0) BUN/Creatinine Ratio 21.16 H (12.00-20.00) Ratio Glucose 145 H (70-110) mg/dL POC Glucose (mg/dL) 148 H (70-110) mg/dL AST 47 H (14-35) U/L Total Protein 6.1 L (6.2-8.2) g/dL Albumin 3.5 L (3.8-4.9) g/dL Albumin/Globulin Ratio 1.31 L (1.60-3.17) g/dL
--- NOTE | 2022-12-22 11:20 | P.PN ---
Subjective Progress Note Date: 12/22/22 HISTORY OF PRESENT ILLNESS: This is a 62-year-old male one of my patient with a previous medical history significant for hypertension and hypertensive cardiovascular disease, hyperlipidemia, diabetes mellitus type 2 with hyperglycemia, chronic kidney disease stage IIIA, PAD, diabetic polyneuropathy, coronary artery disease status post left heart catheterization that was done in July 2020 that showed mild disease of the RCA and the chronic totally occluded proximal to mid LAD and chronic totally occluded left circumflex in the mid to distal portion with mild disease of the intermedius, at that time patient was supposed to go pack to have an attempt to open the LAD however the patient did not he has been following with Dr. Velazco on a regular basis, patient presented to the emergency department at [facility] yesterday because after he sustained a fall at home while he was going to the bathroom using his walker and fortunately he turned around and he felt a popping sensation of his right knee and he landed on the ground he skinned his right knee in the left knee his son Dutch pulled him out of the bathroom all the way to the living room try to put him up on the couch, cold 911 because the patient was not able to bear any weight on the right lower extremity, immediate swelling of the right knee as well as right lower extremity patient did have a right total arthroplasty that in the past, patient was evaluated at [facility] department with an x-ray that showed evidence of Roxanol right tib-fib fracture extending into the prosthetic joint, he was seen and admitted under orthopedic surgery and we were asked to see the patient for medical management patient apparently not able to maneuver himself at home since he has a bad left leg and he cannot bear any pressure in the right lower extremity, beside his the primary caregiver of his who has chronic medical issues. Patient will need to be admitted to the hospital for subacute rehab mentation at this time. 12/20: Patient is sitting up in bed he struggled a lot moving around spied using a sliding board, he has been seen in consultation by physical therapy as well as social services, we'll plan to send the patient to [facility] [place] when the insurance arthritis, his kidney for she does continue to be worsened we will discontinue Farxiga we will adjust gabapentin to 300 mg orally twice every day, discontinue nephrotoxins, continue IV fluid resuscitation the form of normal saline at the 50 mL an hour, ultrasound of the kidneys will be obtained, nephrology consultation. 12/21: Patient is sitting up in the recliner chair in no apparent distress, he denies any chest pain, shortness breath, his creatinine went up to 2.2, his ultrasound of the kidney did not show evidence of hydronephrosis, we discontinued IV fluid, patient will be seen in consultation by nephrology for further evaluation and recommendation, I discontinued his Farsi get completely, monitor the patient very closely. Patient plan is to go to [facility] on the [place] hopefully 12/22: Patient is sitting up in the recliner, currently has an immobilizer to the right lower extremity, continue to have some swelling in both lower extremities, he needed 2 person assist to get to the bathroom, nonweightbearing on the right lower extremity due to the fracture, was seen in consultation by nephrology who recommended to discontinue lisinopril completely, patient has been off Farxiga since yesterday, monitor the patient CMP, avoid nephrotoxic, monitor the patient very closely, continue current pain management, patient would be discharged to [facility] on the [place] hopefully tomorrow. REVIEW OF SYSTEMS: Constitutional: No documented fever, no chills, no night sweats. No weight change. positive for weakness, positive for fatigue no lethargy. No daytime sleepiness. HEENT: No headache. No blurred vision or double vision, no loss of vision. No loss of Hearing, no ringing in the ears, no dizziness. No nasal drainage or co ngestion. No epistaxis. No sore throat. Lungs: No shortness of breath, no cough, no sputum production. No wheezing. Reports dyspnea with activity. Cardiovascular: No chest pain, no lower extremity edema. No palpitations. No paroxysmal nocturnal dyspnea. No orthopnea. No lightheadedness or dizziness. No syncopal episodes. Abdominal: Reports no abdominal pain. No nausea, vomiting. No diarrhea. No constipation. No bloody or tarry stools reports loss of appetite. Genitourinary: No dysuria, increased frequency, urgency. No urinary retention. Musculoskeletal: No myalgias. positive for muscle weakness, positive for gait dysfunction, positive for frequent falls. positive for back pain and neck ain neck pain, positive for severe pain in the right knee and leg and can not place pressure on the right leg Integumentary: Right big toe callus, no lesions. No rash or pruritus. No unusual bruising, change of the right big toenail. Neurologic: No aphasia. No facial droop. No change in mentation. No head injury. No headache. No paralysis. No paresthesia. Psychiatric: No depression. No anxiety. No mood swings. Endocrine: abnormal blood sugars. No weight change. PHYSICAL EXAMINATION: General: 62-year-old male laying down in bed in no distress. HEENT: Head is atraumatic, normocephalic, pupils were equal round reactive to light and recommendation, extraocular muscle movement were intact, sclera nonicteric, conjunctivae were pale, mucous membranes of the mouth are somewhat dry. Neck: Supple, no JVP, normal carotid upstroke bilaterally, no lymphadenopathy. Chest: Decreased breath sounds at the bases, few rhonchi, no expiratory wheezes, no chest wall tenderness, no intercostal retractions. Heart: First heart sound is normal, second heart sounds normal there is no gallop or murmur. Abdomen: Soft, nontender, nondistended, positive bowel sounds. No hepat osplenomegaly Extremities: There is edema in the right more than than the left leg no calf tenderness DP +1 bilaterally, left second toe amputation Neurologic examination: Patient is awake alert and oriented X3, cranial nerves II-12 appear grossly intact, muscle power were 5 out of 5 in upper extremities and 2 out of 5 in bilateral lower extremities, deep tendon could not be evaluated ASSESSMENT AND PLAN: 1. Right proximal fib tib fracture extending into the prosthetic knee . Patient is nonweightbearing of the right lower extremely was seen by orthopedic surgery was recommended for the patient to see physical therapy and to go for subacute rehab patient as he is not able to bear weight on the left lower extremity as well do to significant arthritis of the left knee. 2. Acute kidney injury on top of chronic kidney disease stage III. Monitor the patient CMP, avoid nephrotoxin, discontinue lisinopril, discontinue Farxiga 3. Right big toe callus. Stable at this time. 4. Coronary artery disease status post left heart catheterization back in July 2020 that showed chronic totally occluded proximal to mid LAD chronic totally occluded mid total distal LCx mild disease of the intermedius and mild disease of the RCA with heavily calcified vessels. Continue patient on aspirin 81 mg once every day, metoprolol 50 mg orally once every day, atorvastatin 40 mg orally once every day cardiology evaluation is in progress. 5. Hypertension and hypertensive cardiovascular disease. Continue patient on amlodipine 5 mg orally once every day, as well as Toprol-XL 50 mg orally 6. Hyperlipidemia. Continue low-cholesterol diet and exercise, continue patient on atorvastatin 40 mg orally once every day monitor lipid panel, LDL 55- 70. 7. Diabetes mellitus type 2. Continue patient on Levemir 27 units at bedtime along with the glimeperide 4 mg orally twice every day, we'll start the patient on sliding scale insulin along with NovoLog 7 units before each meal 3 times every day. 8. Diabetic polyneuropathy. Continue gabapentin 300 mg orally twice every day, for creatinine clearance. 9. Osteoarthritis. Continue tramadol 100 mg orally 3 times every day. 10. PAD. Continue aspirin and atorvastatin for secondary prevention. 11. [facility] [place] [facility] [place] hopefully on Friday morning. Objective - Vital Signs Vital signs: Vital Signs Temp 98.1 F 12/22/22 07:29 Pulse 76 12/22/22 08:00 Resp 18 12/22/22 08:00 BP 130/66 12/22/22 07:29 Pulse Ox 90 L 12/22/22 07:29 FiO2 Intake & Output 12/21/22 12/22/22 12/22/22 18:59 06:59 18:59 Intake Total 1416 Output Total 900 Balance 516 Intake: Oral 1416 Output: Urine 900 Other: Voiding Method Urinal Urinal Urinal # Voids 2 # Bowel Movements 0 - Labs CBC & Chem 7: 12/22/22 05:37 12/22/22 05:37 Labs: Abnormal Lab Results - Last 24 Hours (Table) 12/21/22 12/21/22 12/21/22 Range/Units 11:41 16:50 20:08 WBC (4.50-10.00) X 10*3/uL RBC (4.40-5.60) X 10*6/uL Hgb (13.0-17.0) g/dL Hct (39.6-50.0) % MCHC (32.0-37.0) g/dL RDW (11.5-14.5) % Immature Gran # (0.00-0.04) X 10*3/uL Neutrophils # (1.80-7.70) X 10*3/uL BUN (9.0-27.0) mg/dL Creatinine (0.6-1.5) mg/dL Est GFR (CKD-EPI)AfAm (60.0-200.0) Est GFR (CKD-EPI)NonAf (60.0-200.0) BUN/Creatinine Ratio (12.00-20.00) Ratio Glucose (70-110) mg/dL POC Glucose (mg/dL) 253 H 200 H 333 H (70-110) mg/dL AST (14-35) U/L Total Protein (6.2-8.2) g/dL Albumin (3.8-4.9) g/dL Albumin/Globulin Ratio (1.60-3.17) g/dL 12/22/22 12/22/22/ Range/Units 05:23 05:37 05:37 WBC 10.48 H (4.50-10.00) X 10*3/uL RBC 3.33 L (4.40-5.60) X 10*6/uL Hgb 9.9 L (13.0-17.0) g/dL Hct 31.2 L (39.6-50.0) % MCHC 31.7 L (32.0-37.0) g/dL RDW 14.6 H (11.5-14.5) % Immature Gran # 0.05 H (0.00-0.04) X 10*3/uL Neutrophils # 8.12 H (1.80-7.70) X 10*3/uL BUN 54.6 H (9.0-27.0) mg/dL Creatinine 2.6 H (0.6-1.5) mg/dL Est GFR (CKD-EPI)AfAm 30.0 L (60.0-200.0) Est GFR (CKD-EPI)NonAf 25.9 L (60.0-200.0) BUN/Creatinine Ratio 21.16 H (12.00-20.00) Ratio Glucose 145 H (70-110) mg/dL POC Glucose (mg/dL) 148 H (70-110) mg/dL AST 47 H (14-35) U/L Total Protein 6.1 L (6.2-8.2) g/dL Albumin 3.5 L (3.8-4.9) g/dL Albumin/Globulin Ratio 1.31 L (1.60-3.17) g/dL
[2022-12-22 11:21] LABS: Glucose,Whole Blood 144 mg/dL (70-110)
--- NOTE | 2022-12-22 12:25 | P.PN ---
Subjective Progress Note Date: 12/22/22 Principal diagnosis: Right proximal tibia and fibula fracture Patient was evaluated at bedside today, he is resting his hospital bed . Patient admits to generalized soreness throughout the right lower extremity. He has no other orthopedic complaints at this time. Patient would like to utilize the hinge knee brace versus the knee immobilizer. He currently denies headaches, lightheadedness, chest pain or shortness of breath Objective - Vital Signs Vital signs: Vital Signs Temp 98.1 F 12/22/22 07:29 Pulse 76 12/22/22 08:00 Resp 18 12/22/22 08:00 BP 130/66 12/22/22 07:29 Pulse Ox 90 L 12/22/22 07:29 FiO2 Intake & Output 12/21/22 12/22/22 12/22/22 18:59 06:59 18:59 Intake Total 1416 Output Total 900 Balance 516 Intake: Oral 1416 Output: Urine 900 Other: Voiding Method Urinal Urinal Urinal # Voids 2 # Bowel Movements 0 - Exam Right lower extremity: Knee immobilizer remains in place, locked in full extension 2 small anterior aspect of the knee also healing at this, no erythema or drainage noted Effusion is present over the knee, there is soft tissue swelling noted in the lower leg Calf is soft, no tenderness with palpation Tenderness with palpation is noted distal to the knee Plantar flexion, dorsiflexion, EHL, FHL are intact Sensory exam to light touch is intact through out the extremity - Labs CBC & Chem 7: 12/22/22 05:37 12/22/22 05:37 Labs: Abnormal Lab Results - Last 24 Hours (Table) 12/21/22 12/21/22 12/22/22 Range/Units 16:50 20:08 05:23 WBC (4.50-10.00) X 10*3/uL RBC (4.40-5.60) X 10*6/uL Hgb (13.0-17.0) g/dL Hct (39.6-50.0) % MCHC (32.0-37.0) g/dL RDW (11.5-14.5) % Immature Gran # (0.00-0.04) X 10*3/uL Neutrophils # (1.80-7.70) X 10*3/uL BUN (9.0-27.0) mg/dL Creatinine (0.6-1.5) mg/dL Est GFR (CKD-EPI)AfAm (60.0-200.0) Est GFR (CKD-EPI)NonAf (60.0-200.0) BUN/Creatinine Ratio (12.00-20.00) Ratio Glucose (70-110) mg/dL POC Glucose (mg/dL) 200 H 333 H 148 H (70-110) mg/dL AST (14-35) U/L Total Protein (6.2-8.2) g/dL Albumin (3.8-4.9) g/dL Albumin/Globulin Ratio (1.60-3.17) g/dL 12/22/22 12/22/22 12/22/22 Range/Units 05:37 05:37 11:17 WBC 10.48 H (4.50-10.00) X 10*3/uL RBC 3.33 L (4.40-5.60) X 10*6/uL Hgb 9.9 L (13.0-17.0) g/dL Hct 31.2 L (39.6-50.0) % MCHC 31.7 L (32.0-37.0) g/dL RDW 14.6 H (11.5-14.5) % Immature Gran # 0.05 H (0.00-0.04) X 10*3/uL Neutrophils # 8.12 H (1.80-7.70) X 10*3/uL BUN 54.6 H (9.0-27.0) mg/dL Creatinine 2.6 H (0.6-1.5) mg/dL Est GFR (CKD-EPI)AfAm 30.0 L (60.0-200.0) Est GFR (CKD-EPI)NonAf 25.9 L (60.0-200.0) BUN/Creatinine Ratio 21.16 H (12.00-20.00) Ratio Glucose 145 H (70-110) mg/dL POC Glucose (mg/dL) 144 H (70-110) mg/dL AST 47 H (14-35) U/L Total Protein 6.1 L (6.2-8.2) g/dL Albumin 3.5 L (3.8-4.9) g/dL Albumin/Globulin Ratio 1.31 L (1.60-3.17) g/dL Assessment and Plan Assessment: Right proximal tibia fracture Right proximal fibula fracture Status post fall Previous right total knee arthroplasty, stable appearing components Other medical comorbidities Plan: Hinged knee brace locked in full extension was reapplied today, this will help prevent skin breakdown. Continue to monitor abrasions over the anterior aspect of the knee DVT prophylaxis, continue Lovenox during inpatient stay Pain control, patient normally takes tramadol, he also takes gabapentin these have been restarted. We'll add Crewe as needed. Nonweightbearing right lower extremity, knee must remain in full extension Internal medicine recommendations appreciated Discharge planning: Plan for discharge to subacute rehab on 12/23/2022 Time with Patient: Less than 30
[2022-12-22 17:06] LABS: Glucose,Whole Blood 185 mg/dL (70-110)
[2022-12-22 20:06] LABS: Glucose,Whole Blood 203 mg/dL (70-110)
[2022-12-23 06:26] LABS: Glucose,Whole Blood 125 mg/dL (70-110)
[2022-12-23] MEDS: INSULIN DETEMIR (LEVEMIR) 100 UNIT/ML SYR SQ SCH (06:27)
[2022-12-23] MEDS: INSULIN ASPART (NovoLOG) 100 UNIT/ML VIAL SQ SCH ×7 (06:27→22:04)
[2022-12-23] MEDS: GABAPENTIN 300 MG CAP PO SCH ×2 (09:37→20:34)
[2022-12-23] MEDS: METOPROLOL SUCCINATE (ER) 50 MG TAB.ER.24H PO SCH (09:37)
[2022-12-23] MEDS: ASPIRIN 81 MG PO SCH (09:37)
[2022-12-23] MEDS: amLODIPine 5 MG TAB PO SCH (09:38)
[2022-12-23] MEDS: ATORVASTATIN 40 MG TAB PO SCH (09:38)
[2022-12-23] MEDS: traMADol 50 MG TAB PO SCH ×3 (09:38→20:34)
[2022-12-23] MEDS: GLIMEPIRIDE 4 MG TAB PO SCH ×2 (09:39→20:34)
[2022-12-23] MEDS: ENOXAPARIN 30 MG/0.3 ML SYRINGE SQ SCH (09:39)
[2022-12-23] MEDS: BACLOFEN 10 MG TAB PO SCH ×2 (09:49→20:34)
--- NOTE | 2022-12-23 11:16 | P.PN ---
Subjective Patient is seen in follow-up for acute kidney injury on chronic kidney disease. Patient has chronic indices stage IIIa with baseline creatinine near 1.5. Creatinine stable at 2.6 last 2 days. Morning labs pending. Has been voiding. No hematuria. Hemodynamically stable. No chest pain or shortness of breath. Oral intake is good. Vital signs are stable. General: No acute distress. HEENT: Head exam is unremarkable. LUNGS: No audible rhonchi or wheezes. HEART: Rate and Rhythm are regular. ABDOMEN: Obese. Nontender. EXTREMITITES: No edema. Objective - Vital Signs Vital signs: Vital Signs Temp 98.4 F 12/23/22 07:01 Pulse 64 12/23/22 07:01 Resp 17 12/23/22 07:01 BP 166/82 12/23/22 07:01 Pulse Ox 95 12/23/22 07:01 FiO2 Intake & Output 12/22/22 12/23/22 12/23/22 18:59 06:59 18:59 Output Total 900 Balance -900 Output: Urine 900 Other: Voiding Method Urinal Urinal # Voids 1 4 - Labs CBC & Chem 7: 12/22/22 05:37 12/22/22 05:37 Labs: Abnormal Lab Results - Last 24 Hours (Table) 12/22/22 12/22/22 12/22/22 Range/Units 11:17 17:04 20:04 POC Glucose (mg/dL) 144 H 185 H 203 H (70-110) mg/dL 12/23/22 Range/Units 06:24 POC Glucose (mg/dL) 125 H (70-110) mg/dL Assessment and Plan Plan: Assessment: 1. Acute kidney injury secondary to ATN secondary to hypotension. Creatinine 1.92 on admission and stable at 2.6 the last 2 days. UA from October 2022 benign. No hydronephrosis noted on kidney ultrasound. 2. Chronic kidney disease stage IIIa secondary to nephrosclerosis. Baseline creatinine near 1.5. 3. Hypertension with chronic kidney disease. Blood pressure on the lower side this admission. Improved with antihypertensives held. 4. Metabolic acidosis secondary to acute kidney injury. Better. 5. Status post fall with right tibia and fibular fracture. Orthopedic surgery following. 6. Diabetes mellitus. Plan: Lisinopril stopped 12/22/2022. Hold amlodipine for systolic blood pressure less than 120. Encouraged oral intake. Off IV fluids. Avoid nephrotoxins. Continue to monitor renal function and urine output. Zoila stopped 12/21/2022. Follow-up morning labs. Monitor bladder scans. If greater than 300 mL urine present persistently, will need Spaulding catheter.
[2022-12-23 11:48] LABS: Glucose,Whole Blood 284 mg/dL (70-110)
--- NOTE | 2022-12-23 12:41 | P.PN ---
Subjective Progress Note Date: 12/23/22 Principal diagnosis: Right proximal tibia and fibula fracture Patient was evaluated at bedside today, he is resting his hospital bed . Patient admits to generalized soreness throughout the right lower extremity. He has no other orthopedic complaints at this time. He currently denies headaches, lightheadedness, chest pain or shortness of breath Objective - Vital Signs Vital signs: Vital Signs Temp 98.4 F 12/23/22 07:01 Pulse 64 12/23/22 07:01 Resp 17 12/23/22 07:01 BP 166/82 12/23/22 07:01 Pulse Ox 95 12/23/22 07:01 FiO2 Intake & Output 12/22/22 12/23/22 12/23/22 18:59 06:59 18:59 Output Total 900 Balance -900 Output: Urine 900 Other: Voiding Method Urinal Urinal # Voids 1 4 - Exam Right lower extremity: Knee immobilizer remains in place, locked in full extension 2 small anterior aspect of the knee also healing at this, no erythema or drainage noted Effusion is present over the knee, there is soft tissue swelling noted in the lower leg Calf is soft, no tenderness with palpation Tenderness with palpation is noted distal to the knee Plantar flexion, dorsiflexion, EHL, FHL are intact Sensory exam to light touch is intact through out the extremity - Labs CBC & Chem 7: 12/22/22 05:37 12/22/22 05:37 Labs: Abnormal Lab Results - Last 24 Hours (Table) 12/22/22 12/22/22 12/23/22 Range/Units 17:04 20:04 06:24 POC Glucose (mg/dL) 185 H 203 H 125 H (70-110) mg/dL 12/23/22 Range/Units 11:40 POC Glucose (mg/dL) 284 H (70-110) mg/dL Assessment and Plan Assessment: Right proximal tibia fracture Right proximal fibula fracture Status post fall Previous right total knee arthroplasty, stable appearing components Other medical comorbidities Plan: Hinged knee brace locked in full extension was reapplied today, this will help prevent skin breakdown. Continue to monitor abrasions over the anterior aspect of the knee DVT prophylaxis, aspirin 81 mg twice a day at discharge Pain control, continue tramadol Nonweightbearing right lower extremity, knee must remain in full extension Internal medicine recommendations appreciated Discharge planning: .. Evaluation for 12/23/2022, hopeful discharge at the time
--- NOTE | 2022-12-23 14:28 | P.PN ---
Subjective Progress Note Date: 12/23/22 HISTORY OF PRESENT ILLNESS: This is a 62-year-old male one of my patient with a previous medical history significant for hypertension and hypertensive cardiovascular disease, hyperlipidemia, diabetes mellitus type 2 with hyperglycemia, chronic kidney disease stage IIIA, PAD, diabetic polyneuropathy, coronary artery disease status post left heart catheterization that was done in July 2020 that showed mild disease of the RCA and the chronic totally occluded proximal to mid LAD and chronic totally occluded left circumflex in the mid to distal portion with mild disease of the intermedius, at that time patient was supposed to go pack to have an attempt to open the LAD however the patient did not he has been following with Dr. Velazco on a regular basis, patient presented to the emergency department at [facility] yesterday because after he sustained a fall at home while he was going to the bathroom using his walker and fortunately he turned around and he felt a popping sensation of his right knee and he landed on the ground he skinned his right knee in the left knee his son Dutch pulled him out of the bathroom all the way to the living room try to put him up on the couch, cold 911 because the patient was not able to bear any weight on the right lower extremity, immediate swelling of the right knee as well as right lower extremity patient did have a right total arthroplasty that in the past, patient was evaluated at [place] department with an x-ray that showed evidence of Rox[place] right tib-fib fracture extending into the prosthetic joint, he was seen and admitted under orthopedic surgery and we were asked to see the patient for medical management patient apparently not able to maneuver himself at home since he has a bad left leg and he cannot bear any pressure in the right lower extremity, beside his the primary caregiver of his who has chronic medical issues. Patient will need to be admitted to the hospital for subacute rehab mentation at this time. 12/20: Patient is sitting up in bed he struggled a lot moving around spied using a sliding board, he has been seen in consultation by physical therapy as well as social scientist, we'll plan to send the patient to [facility] when the insurance arthritis, his kidney for she does continue to be worsened we will discontinue Farxiga we will adjust gabapentin to 300 mg orally twice every day, discontinue nephrotoxins, continue IV fluid resuscitation the form of normal saline at the 50 mL an hour, ultrasound of the kidneys will be obtained, nephrology consultation. 12/21: Patient is sitting up in the recliner chair in no apparent distress, he denies any chest pain, shortness breath, his creatinine went up to 2.2, his ultrasound of the kidney did not show evidence of hydronephrosis, we discontinued IV fluid, patient will be seen in consultation by nephrology for further evaluation and recommendation, I discontinued his Farxiga completely, monitor the patient very closely. Patient plan is to go to [facility] hopefully 12/22: Patient is sitting up in the recliner, currently has an immobilizer to the right lower extremity, continue to have some swelling in both lower extremities, he needed 2 person assist to get to the bathroom, nonweightbearing on the right lower extremity due to the fracture, was seen in consultation by nephrology who recommended to discontinue lisinopril completely, patient has been off Farxiga since yesterday, monitor the patient CMP, avoid nephrotoxic, monitor the patient very closely, continue current pain management, patient would be discharged to [facility] hopefully tomorrow. 12/23: The patient is seen today in follow-up. He remains nonweightbearing on the right lower extremity, knee immobilizer in place. He has been afebrile, heart rate in the 60s and 70s, blood pressure 166/82, pulse ox 95% on room air. Repeat blood work reports are pending at the time of this dictation. Lisinopril remains on hold due to acute kidney injury. Also Lasix and potassium on hold. Anticipate discharge to [facility] in the [place] tomorrow morning. REVIEW OF SYSTEMS: Constitutional: No documented fever, no chills, no night sweats. No weight change. positive for weakness, positive for fatigue no lethargy. No daytime sleepiness. HEENT: No headache. No blurred vision or double vision, no loss of vision. No loss of Hearing, no ringing in the ears, no dizziness. No nasal drainage or congestion. No epistaxis. No sore throat. Lungs: No shortness of breath, no cough, no sputum production. No wheezing. Reports dyspnea with activity. Cardiovascular: No chest pain, no lower extremity edema. No palpitations. No paroxysmal nocturnal dyspnea. No orthopnea. No lightheadedness or dizziness. No syncopal episodes. Abdominal: Reports no abdominal pain. No nausea, vomiting. No diarrhea. No constipation. No bloody or tarry stools reports loss of appetite. Genitourinary: No dysuria, increased frequency, urgency. No urinary retention. Musculoskeletal: No myalgias. positive for muscle weakness, positive for gait dysfunction, positive for frequent falls. positive for back pain and neck ain neck pain, positive for severe pain in the right knee and leg and can not place pressure on the right leg, knee immobilizer in place Integumentary: Right big toe callus, no lesions. No rash or pruritus. No unusual bruising, change of the right big toenail. Neurologic: No aphasia. No facial droop. No change in mentation. No head injury. No headache. No paralysis. No paresthesia. Psychiatric: No depression. No anxiety. No mood swings. Endocrine: abnormal blood sugars. No weight change. PHYSICAL EXAMINATION: General: 62-year-old male laying down in bed in no distress. HEENT: Head is atraumatic, normocephalic, pupils were equal round reactive to light and recommendation, extraocular muscle movement were intact, sclera nonicteric, conjunctivae were pale, mucous membranes of the mouth are somewhat dry. Neck: Supple, no JVP, normal carotid upstroke bilaterally, no lymphadenopathy. Chest: Decreased breath sounds at the bases, few rhonchi, no expiratory wheezes, no chest wall tenderness, no intercostal retractions. Heart: First heart sound is normal, second heart sounds normal there is no zamudio p or murmur. Abdomen: Soft, nontender, nondistended, positive bowel sounds. No hepatosplenomegaly Extremities: There is edema in the right more than than the left leg no calf tenderness DP +1 bilaterally, left second toe amputation Neurologic examination: Patient is awake alert and oriented X3, cranial nerves II-12 appear grossly intact, muscle power were 5 out of 5 in upper extremities and 2 out of 5 in bilateral lower extremities, deep tendon could not be evaluated ASSESSMENT AND PLAN: 1. Right proximal fib tib fracture extending into the prosthetic knee . Patient is nonweightbearing of the right lower extremely was seen by orthopedic surgery was recommended for the patient to see physical therapy and to go for subacute rehab patient as he is not able to bear weight on the left lower extremity as well do to significant arthritis of the left knee. 2. Acute kidney injury on top of chronic kidney disease stage III. Monitor the patient CMP, avoid nephrotoxin, discontinue lisinopril, discontinue Farxiga 3. Right big toe callus. Stable at this time. 4. Coronary artery disease status post left heart catheterization back in July 2020 that showed chronic totally occluded proximal to mid LAD chronic totally occluded mid total distal LCx mild disease of the intermedius and mild disease of the RCA with heavily calcified vessels. Continue patient on aspirin 81 mg once every day, metoprolol succinate 25 mg orally once every day, atorvastatin 40 mg orally once every day cardiology evaluation is in progress. 5. Hypertension and hypertensive cardiovascular disease. Hold lisinopril 10 mg orally once every day, continue Toprol-XL 25 mg once every day. 6. Hyperlipidemia. Continue low-cholesterol diet and exercise, continue patient on atorvastatin 40 mg orally once every day monitor lipid panel, LDL 55- 70. 7. Diabetes mellitus type 2. Continue patient on Levemir 27 units at bedtime along with the glimeperide 4 mg orally twice every day, we'll start the patient on sliding scale insulin along with NovoLog 7 units before each meal 3 times every day. 8. Diabetic polyneuropathy. Continue gabapentin 300 mg orally twice every day, for creatinine clearance. 9. Osteoarthritis. Continue tramadol 100 mg orally 3 times every day. 10. PAD. Continue aspirin and atorvastatin for secondary prevention. 11. [facility] on Friday. Impression and plan of care have been directed as dictated by the signing physician. Cayla Arredondo nurse practitioner acting as scribe for signing physician. Objective - Vital Signs Vital signs: Vital Signs Temp 97.7 F 12/23/22 02:00 Pulse 64 12/23/22 02:00 Resp 18 12/23/22 02:00 BP 135/71 12/23/22 02:00 Pulse Ox 95 12/23/22 02:00 FiO2 Intake & Output 12/22/22 12/23/22 12/23/22 18:59 06:59 18:59 Output Total 900 Balance -900 Output: Urine 900 Other: Voiding Method Urinal Urinal # Voids 1 4 - Labs CBC & Chem 7: 12/22/22 05:37 12/22/22 05:37 Labs: Abnormal Lab Results - Last 24 Hours (Table) 12/22/22 12/22/22 12/22/22 Range/Units 05:37 05:37 11:17 WBC 10.48 H (4.50-10.00) X 10*3/uL RBC 3.33 L (4.40-5.60) X 10*6/uL Hgb 9.9 L (13.0-17.0) g/dL Hct 31.2 L (39.6-50.0) % MCHC 31.7 L (32.0-37.0) g/dL RDW 14.6 H (11.5-14.5) % Immature Gran # 0.05 H (0.00-0.04) X 10*3/uL Neutrophils # 8.12 H (1.80-7.70) X 10*3/uL BUN 54.6 H (9.0-27.0) mg/dL Creatinine 2.6 H (0.6-1.5) mg/dL Est GFR (CKD-EPI)AfAm 30.0 L (60.0-200.0) Est GFR (CKD-EPI)NonAf 25.9 L (60.0-200.0) BUN/Creatinine Ratio 21.16 H (12.00-20.00) Ratio Glucose 145 H (70-110) mg/dL POC Glucose (mg/dL) 144 H (70-110) mg/dL AST 47 H (14-35) U/L Total Protein 6.1 L (6.2-8.2) g/dL Albumin 3.5 L (3.8-4.9) g/dL Albumin/Globulin Ratio 1.31 L (1.60-3.17) g/dL 12/22/22 12/22/22 12/23/22 Range/Units 17:04 20:04 06:24 WBC (4.50-10.00) X 10*3/uL RBC (4.40-5.60) X 10*6/uL Hgb (13.0-17.0) g/dL Hct (39.6-50.0) % MCHC (32.0-37.0) g/dL RDW (11.5-14.5) % Immature Gran # (0.00-0.04) X 10*3/uL Neutrophils # (1.80-7.70) X 10*3/uL BUN (9.0-27.0) mg/dL Creatinine (0.6-1.5) mg/dL Est GFR (CKD-EPI)AfAm (60.0-200.0) Est GFR (CKD-EPI)NonAf (60.0-200.0) BUN/Creatinine Ratio (12.00-20.00) Ratio Glucose (70-110) mg/dL POC Glucose (mg/dL) 185 H 203 H 125 H (70-110) mg/dL AST (14-35) U/L Total Protein (6.2-8.2) g/dL Albumin (3.8-4.9) g/dL Albumin/Globulin Ratio (1.60-3.17) g/dL
[2022-12-23 14:42] LABS: Basophils # (A) 0.04 X 10*3/uL (0.00-0.10); Basophils % (A) 0.5 %; Eosinophils # (A) 0.38 X 10*3/uL (0.04-0.35); Eosinophils % (A) 4.5 %; HGB 9.8 g/dL (13.0-17.0); Immature Grans, Automated 0.5 %; Lymphocytes # (A) 1.28 X 10*3/uL (0.90-5.00); Lymphocytes % (A) 15.1 %; MCH 29.5 pg (27.0-32.0); MCHC 31.6 g/dL (32.0-37.0); MCV 93.4 fL (80.0-97.0); Mean Platelet Volume 10.3 fL (9.5-12.2); Monocytes # (A) 0.61 X 10*3/uL (0.20-1.00); Monocytes % (A) 7.2 %; NRBC Per 100 WBC 0 /100 WBCS (0.0-0.0); Neutrophils # (A) 6.13 X 10*3/uL (1.80-7.70); Neutrophils % (A) 72.2 %; Platelet Count 194 X 10*3/uL (140-440); RBC 3.32 X 10*6/uL (4.40-5.60); RDW 14.4 % (11.5-14.5); WBC 8.48 X 10*3/uL (4.50-10.00)
[2022-12-23 14:53] LABS: African American GFR (CKD) 37.8 (60.0-200.0); Albumin 3.4 g/dL (3.8-4.9); Albumin/Globulin Ratio 1.24 (1.60-3.17); Anion Gap 14.6 mmol/L (10.00-18.00); BUN/Creat Ratio 22.96 Ratio (12.00-20.00); Blood Urea Nitrogen 48.9 mg/dL (9.0-27.0); Carbon Dioxide 18.3 mmol/L (20.0-27.5); Globulin 2.8 g/dL (1.6-3.3); Magnesium 2.3 mg/dL (1.5-2.4); Non-African American GFR(CKD) 32.7 (60.0-200.0); Potassium 4.6 mmol/L (3.5-5.5); Total Bilirubin 0.5 mg/dL (0.30-1.20); Total Protein 6.2 g/dL (6.2-8.2)
[2022-12-23 17:11] LABS: Glucose,Whole Blood 199 mg/dL (70-110)
[2022-12-23] MEDS: SODIUM CHLORIDE 0.9% 1,000 ML IV SCH (19:44)
[2022-12-23 22:03] LABS: Glucose,Whole Blood 244 mg/dL (70-110)
[2022-12-24] MEDS: INSULIN DETEMIR (LEVEMIR) 100 UNIT/ML SYR SQ SCH (06:38)
[2022-12-24 06:39] LABS: Glucose,Whole Blood 143 mg/dL (70-110)
[2022-12-24] MEDS: INSULIN ASPART (NovoLOG) 100 UNIT/ML VIAL SQ SCH ×7 (06:40→21:09)
--- NOTE | 2022-12-24 10:50 | P.PN ---
Subjective Patient is seen in follow-up for acute kidney injury on chronic kidney disease. Patient has chronic kidney disease stage IIIa with baseline creatinine near 1.5. Renal function starting to improve. Creatinine 2.1 yesterday. Morning labs pending. Has been voiding. No hematuria. Hemodynamically stable. No chest pain or shortness of breath. Oral intake is good. Vital signs are stable. General: No acute distress. HEENT: Head exam is unremarkable. LUNGS: No audible rhonchi or wheezes. HEART: Rate and Rhythm are regular. ABDOMEN: Obese. Nontender. EXTREMITITES: No edema. Objective - Vital Signs Vital signs: Vital Signs Temp 98.4 F 12/24/22 08:59 Pulse 71 12/24/22 08:59 Resp 16 12/24/22 08:59 BP 127/72 12/24/22 10:21 Pulse Ox 95 12/24/22 08:59 FiO2 Intake & Output 12/23/22 12/24/22 12/24/22 18:59 06:59 18:59 Output Total 1000 410 Balance -1000 -410 Output: Urine 1000 410 Other: # Voids 2 # Bowel Movements 1 - Labs CBC & Chem 7: 12/23/22 07:08 12/23/22 07:08 Labs: Abnormal Lab Results - Last 24 Hours (Table) 12/23/22 12/23/22 12/23/22 Range/Units 07:08 07:08 11:40 RBC 3.32 L (4.40-5.60) X 10*6/uL Hgb 9.8 L (13.0-17.0) g/dL Hct 31.0 L (39.6-50.0) % MCHC 31.6 L (32.0-37.0) g/dL Eosinophils # 0.38 H (0.04-0.35) X 10*3/uL Carbon Dioxide 18.3 L (20.0-27.5) mmol/L BUN 48.9 H (9.0-27.0) mg/dL Creatinine 2.1 H (0.6-1.5) mg/dL Est GFR (CKD-EPI)AfAm 37.8 L (60.0-200.0) Est GFR (CKD-EPI)NonAf 32.7 L (60.0-200.0) BUN/Creatinine Ratio 22.96 H (12.00-20.00) Ratio Glucose 119 H (70-110) mg/dL POC Glucose (mg/dL) 284 H (70-110) mg/dL AST 38 H (14-35) U/L Albumin 3.4 L (3.8-4.9) g/dL Albumin/Globulin Ratio 1.24 L (1.60-3.17) g/dL 12/23/22 12/23/22 12/24/22 Range/Units 17:10 22:01 06:38 RBC (4.40-5.60) X 10*6/uL Hgb (13.0-17.0) g/dL Hct (39.6-50.0) % MCHC (32.0-37.0) g/dL Eosinophils # (0.04-0.35) X 10*3/uL Carbon Dioxide (20.0-27.5) mmol/L BUN (9.0-27.0) mg/dL Creatinine (0.6-1.5) mg/dL Est GFR (CKD-EPI)AfAm (60.0-200.0) Est GFR (CKD-EPI)NonAf (60.0-200.0) BUN/Creatinine Ratio (12.00-20.00) Ratio Glucose (70-110) mg/dL POC Glucose (mg/dL) 199 H 244 H 143 H (70-110) mg/dL AST (14-35) U/L Albumin (3.8-4.9) g/dL Albumin/Globulin Ratio (1.60-3.17) g/dL Assessment and Plan Plan: Assessment: 1. Acute kidney injury secondary to ATN secondary to hypotension. Creatinine 1.92 on admission and peaked at 2.6 - 2.1 yesterday. UA from October 2022 benign. No hydronephrosis noted on kidney ultrasound. 2. Chronic kidney disease stage IIIa secondary to nephrosclerosis. Baseline creatinine near 1.5. 3. Hypertension with chronic kidney disease. Blood pressure on the lower side this admission. Improved with antihypertensives held. 4. Metabolic acidosis secondary to acute kidney injury. Better. 5. Status post fall with right tibia and fibular fracture. Orthopedic surgery following. 6. Diabetes mellitus. Plan: Lisinopril stopped 12/22/2022. Hold amlodipine for systolic blood pressure less than 120. Encouraged oral intake. Off IV fluids. Avoid nephrotoxins. Continue to monitor renal function and urine output. Farxiga stopped 12/21/2022. Follow-up morning labs. Advised to follow up outpatient 1 week post discharge.
[2022-12-24] MEDS: METOPROLOL SUCCINATE (ER) 50 MG TAB.ER.24H PO SCH (11:13)
[2022-12-24] MEDS: ATORVASTATIN 40 MG TAB PO SCH (11:13)
[2022-12-24] MEDS: traMADol 50 MG TAB PO SCH ×3 (11:13→20:30)
[2022-12-24] MEDS: GLIMEPIRIDE 4 MG TAB PO SCH ×2 (11:13→20:30)
[2022-12-24] MEDS: ENOXAPARIN 30 MG/0.3 ML SYRINGE SQ SCH (11:14)
[2022-12-24] MEDS: BACLOFEN 10 MG TAB PO SCH ×2 (11:14→20:33)
[2022-12-24] MEDS: ASPIRIN 81 MG PO SCH (11:14)
[2022-12-24] MEDS: GABAPENTIN 300 MG CAP PO SCH ×2 (11:14→20:33)
[2022-12-24] MEDS: amLODIPine 5 MG TAB PO SCH (11:14)
[2022-12-24] MEDS: SODIUM CHLORIDE 0.9% 1,000 ML IV SCH (11:26)
[2022-12-24 11:39] LABS: Glucose,Whole Blood 153 mg/dL (70-110)
[2022-12-24 11:44] VITALS: BMI 40.6
[2022-12-24 11:52] LABS: African American GFR (CKD) 46.4 (60.0-200.0); Anion Gap 10.3 mmol/L (10.00-18.00); BUN/Creat Ratio 24.78 Ratio (12.00-20.00); Blood Urea Nitrogen 44.6 mg/dL (9.0-27.0); Carbon Dioxide 21.7 mmol/L (20.0-27.5); Magnesium 2.7 mg/dL (1.5-2.4); Potassium 4.9 mmol/L (3.5-5.5)
--- NOTE | 2022-12-24 13:02 | P.PN ---
Subjective Progress Note Date: 12/24/22 Principal diagnosis: Right proximal tibia and fibula fracture Patient was evaluated at bedside today, he is resting his hospital bed . Patient admits to generalized soreness throughout the right lower extremity. He has no other orthopedic complaints at this time. He currently denies headaches, lightheadedness, chest pain or shortness of breath Objective - Vital Signs Vital signs: Vital Signs Temp 98.4 F 12/24/22 08:59 Pulse 71 12/24/22 08:59 Resp 16 12/24/22 08:59 BP 127/72 12/24/22 10:21 Pulse Ox 95 12/24/22 08:59 FiO2 Intake & Output 12/23/22 12/24/22 12/24/22 18:59 06:59 18:59 Output Total 1000 810 Balance -1000 -810 Weight 136.078 kg Output: Urine 1000 810 Other: # Voids 2 # Bowel Movements 1 - Exam Right lower extremity: Knee immobilizer remains in place, locked in full extension 2 small anterior aspect of the knee also healing at this, no erythema or dr aimarii noted Effusion is present over the knee, there is soft tissue swelling noted in the lower leg Calf is soft, no tenderness with palpation Tenderness with palpation is noted distal to the knee Plantar flexion, dorsiflexion, EHL, FHL are intact Sensory exam to light touch is intact through out the extremity - Labs CBC & Chem 7: 12/23/22 07:08 12/24/22 06:04 Labs: Abnormal Lab Results - Last 24 Hours (Table) 12/23/22 12/23/22 12/23/22 Range/Units 07:08 07:08 17:10 RBC 3.32 L (4.40-5.60) X 10*6/uL Hgb 9.8 L (13.0-17.0) g/dL Hct 31.0 L (39.6-50.0) % MCHC 31.6 L (32.0-37.0) g/dL Eosinophils # 0.38 H (0.04-0.35) X 10*3/uL Carbon Dioxide 18.3 L (20.0-27.5) mmol/L BUN 48.9 H (9.0-27.0) mg/dL Creatinine 2.1 H (0.6-1.5) mg/dL Est GFR (CKD-EPI)AfAm 37.8 L (60.0-200.0) Est GFR (CKD-EPI)NonAf 32.7 L (60.0-200.0) BUN/Creatinine Ratio 22.96 H (12.00-20.00) Ratio Glucose 119 H (70-110) mg/dL POC Glucose (mg/dL) 199 H (70-110) mg/dL Magnesium (1.5-2.4) mg/dL AST 38 H (14-35) U/L Albumin 3.4 L (3.8-4.9) g/dL Albumin/Globulin Ratio 1.24 L (1.60-3.17) g/dL 12/23/22 12/24/22 12/24/22 Range/Units 22:01 06:04 06:38 RBC (4.40-5.60) X 10*6/uL Hgb (13.0-17.0) g/dL Hct (39.6-50.0) % MCHC (32.0-37.0) g/dL Eosinophils # (0.04-0.35) X 10*3/uL Carbon Dioxide (20.0-27.5) mmol/L BUN 44.6 H (9.0-27.0) mg/dL Creatinine 1.8 H (0.6-1.5) mg/dL Est GFR (CKD-EPI)AfAm 46.4 L (60.0-200.0) Est GFR (CKD-EPI)NonAf 40.0 L (60.0-200.0) BUN/Creatinine Ratio 24.78 H (12.00-20.00) Ratio Glucose 144 H (70-110) mg/dL POC Glucose (mg/dL) 244 H 143 H (70-110) mg/dL Magnesium 2.7 H (1.5-2.4) mg/dL AST (14-35) U/L Albumin (3.8-4.9) g/dL Albumin/Globulin Ratio (1.60-3.17) g/dL 12/24/22 Range/Units 11:34 RBC (4.40-5.60) X 10*6/uL Hgb (13.0-17.0) g/dL Hct (39.6-50.0) % MCHC (32.0-37.0) g/dL Eosinophils # (0.04-0.35) X 10*3/uL Carbon Dioxide (20.0-27.5) mmol/L BUN (9.0-27.0) mg/dL Creatinine (0.6-1.5) mg/dL Est GFR (CKD-EPI)AfAm (60.0-200.0) Est GFR (CKD-EPI)NonAf (60.0-200.0) BUN/Creatinine Ratio (12.00-20.00) Ratio Glucose (70-110) mg/dL POC Glucose (mg/dL) 153 H (70-110) mg/dL Magnesium (1.5-2.4) mg/dL AST (14-35) U/L Albumin (3.8-4.9) g/dL Albumin/Globulin Ratio (1.60-3.17) g/dL Assessment and Plan Assessment: Right proximal tibia fracture Right proximal fibula fracture Status post fall Previous right total knee arthroplasty, stable appearing components Other medical comorbidities Plan: Hinged knee brace locked in full extension was reapplied today, this will help prevent skin breakdown. Continue to monitor abrasions over the anterior aspect of the knee DVT prophylaxis, aspirin 81 mg twice a day at discharge Pain control, continue tramadol Nonweightbearing right lower extremity, knee must remain in full extension Internal medicine recommendations appreciated Discharge planning: Awaiting authorization from insurance for subacute rehab Time with Patient: Less than 30
--- NOTE | 2022-12-24 13:44 | P.PN ---
Subjective Progress Note Date: 12/24/22 HISTORY OF PRESENT ILLNESS: This is a 62-year-old male one of my patient with a previous medical history significant for hypertension and hypertensive cardiovascular disease, hyperlipidemia, diabetes mellitus type 2 with hyperglycemia, chronic kidney disease stage IIIA, PAD, diabetic polyneuropathy, coronary artery disease status post left heart catheterization that was done in July 2020 that showed mild disease of the RCA and the chronic totally occluded proximal to mid LAD and chronic totally occluded left circumflex in the mid to distal portion with mild disease of the intermedius, at that time patient was supposed to go pack to have an attempt to open the LAD however the patient did not he has been following with Dr. Velazco on a regular basis, patient presented to the emergency department at [facility] yesterday because after he sustained a fall at home while he was going to the bathroom using his walker and fortunately he turned around and he felt a popping sensation of his right knee and he landed on the ground he skinned his right knee in the left knee his son Dutch pulled him out of the bathroom all the way to the living room try to put him up on the couch, cold 911 because the patient was not able to bear any weight on the right lower extremity, immediate swelling of the right knee as well as right lower extremity patient did have a right total arthroplasty that in the past, patient was evaluated at [facility] department with an x-ray that showed evidence of Roxanol right tib-fib fracture extending into the prosthetic joint, he was seen and admitted under orthopedic surgery and we were asked to see the patient for medical management patient apparently not able to maneuver himself at home since he has a bad left leg and he cannot bear any pressure in the right lower extremity, beside his the primary caregiver of his who has chronic medical issues. Patient will need to be admitted to the hospital for subacute rehab mentation at this time. 12/20: Patient is sitting up in bed he struggled a lot moving around spied using a sliding board, he has been seen in consultation by physical therapy as well as social research assistant, we'll plan to send the patient to [facility] on the spear when the insurance arthritis, his kidney for she does continue to be worsened we will discontinue Farxiga we will adjust gabapentin to 300 mg orally twice every day, discontinue nephrotoxins, continue IV fluid resuscitation the form of normal saline at the 50 mL an hour, ultrasound of the kidneys will be obtained, nephrology consultation. 12/21: Patient is sitting up in the recliner chair in no apparent distress, he denies any chest pain, shortness breath, his creatinine went up to 2.2, his ultrasound of the kidney did not show evidence of hydronephrosis, we discontinued IV fluid, patient will be seen in consultation by nephrology for further evaluation and recommendation, I discontinued his Farxiga completely, monitor the patient very closely. Patient plan is to go to [facility] on [facility] [place] hopefully 12/22: Patient is sitting up in the recliner, currently has an immobilizer to the right lower extremity, continue to have some swelling in both lower extremities, he needed 2 person assist to get to the bathroom, nonweightbearing on the right lower extremity due to the fracture, was seen in consultation by nephrology who recommended to discontinue lisinopril completely, patient has been off Farxiga since yesterday, monitor the patient CMP, avoid nephrotoxic, monitor the patient very closely, continue current pain management, patient would be discharged to [facility] on [facility] [place] hopefully tomorrow. 12/23: The patient is seen today in follow-up. He remains nonweightbearing on the right lower extremity, knee immobilizer in place. He has been afebrile, heart rate in the 60s and 70s, blood pressure 166/82, pulse ox 95% on room air. Repeat blood work reports are pending at the time of this dictation. Lisinopril remains on hold due to acute kidney injury. Also Lasix and potassium on hold. Anticipate discharge to [facility] in the [place] tomorrow morning. 12/24: Patient is scheduled for discharge to [facility] again today for subacute rehab but unfortunately, insurance has denied [id number] evaluation. Patient has subsequently peeled this denial and we are waiting for further information from the insurance company. His kidney function has been improving over the past 2 days and now creatinine is at 1.8. Hemoglobin is 9.8. Capillary blood glucose running between 125 and 284. Patient is to be on aspirin 81 mg twice daily for DVT prophylaxis per orthopedics. Medication reconciliation has been reviewed for anticipated discharge as soon as insurance issue has been resolved. REVIEW OF SYSTEMS: Constitutional: No documented fever, no chills, no night sweats. No weight change. positive for weakness, positive for fatigue no lethargy. No daytime sleepiness. HEENT: No headache. No blurred vision or double vision, no loss of vision. No loss of Hearing, no ringing in the ears, no dizziness. No nasal drainage or congestion. No epistaxis. No sore throat. Lungs: No shortness of breath, no cough, no sputum production. No wheezing. Reports dyspnea with activity. Cardiovascular: No chest pain, no lower extremity edema. No palpitations. No paroxysmal nocturnal dyspnea. No orthopnea. No lightheadedness or dizziness. No syncopal episodes. Abdominal: Reports no abdominal pain. No nausea, vomiting. No diarrhea. No co nstipation. No bloody or tarry stools reports loss of appetite. Genitourinary: No dysuria, increased frequency, urgency. No urinary retention. Musculoskeletal: No myalgias. positive for muscle weakness, positive for gait dysfunction, positive for frequent falls. positive for back pain and neck ain neck pain, positive for severe pain in the right knee and leg and can not place pressure on the right leg, knee immobilizer in place Integumentary: Right big toe callus, no lesions. No rash or pruritus. No unusual bruising, change of the right big toenail. Neurologic: No aphasia. No facial droop. No change in mentation. No head injury. No headache. No paralysis. No paresthesia. Psychiatric: No depression. No anxiety. No mood swings. Endocrine: abnormal blood sugars. No weight change. PHYSICAL EXAMINATION: General: 62-year-old male laying down in bed in no distress. HEENT: Head is atraumatic, normocephalic, pupils were equal round reactive to light and recommendation, extraocular muscle movement were intact, sclera nonicteric, conjunctivae were pale, mucous membranes of the mouth are somewhat dry. Neck: Supple, no JVP, normal carotid upstroke bilaterally, no lymphadenopathy. Chest: Decreased breath sounds at the bases, few rhonchi, no expiratory wheezes, no chest wall tenderness, no intercostal retractions. Heart: First heart sound is normal, second heart sounds normal there is no gallop or murmur. Abdomen: Soft, nontender, nondistended, positive bowel sounds. No hepatosplenomegaly Extremities: There is edema in the right more than than the left leg no calf tenderness DP +1 bilaterally, left second toe amputation Neurologic examination: Patient is awake alert and oriented X3, cranial nerves II-12 appear grossly intact, muscle power were 5 out of 5 in upper extremities and 2 out of 5 in bilateral lower extremities, deep tendon could not be evaluat ed ASSESSMENT AND PLAN: 1. Right proximal fib tib fracture extending into the prosthetic knee . Patient is nonweightbearing of the right lower extremely was seen by orthopedic surgery was recommended for the patient to see physical therapy and to go for subacute rehab patient as he is not able to bear weight on the left lower extremity as well do to significant arthritis of the left knee, maintain knee immobilizer. 2. Acute kidney injury on top of chronic kidney disease stage III. Monitor the patient CMP, avoid nephrotoxin, discontinue lisinopril, discontinue Farxiga 3. Right big toe callus. Stable at this time. 4. Coronary artery disease status post left heart catheterization back in July 2020 that showed chronic totally occluded proximal to mid LAD chronic totally occluded mid total distal LCx mild disease of the intermedius and mild disease of the RCA with heavily calcified vessels. Continue patient on aspirin 81 mg once every day, metoprolol succinate 25 mg orally once every day, atorvastatin 40 mg orally once every day cardiology evaluation is in progress. 5. Hypertension and hypertensive cardiovascular disease. Hold lisinopril 10 mg orally once every day, continue Toprol-XL 25 mg once every day. 6. Hyperlipidemia. Continue low-cholesterol diet and exercise, continue patient on atorvastatin 40 mg orally once every day monitor lipid panel, LDL 55- 70. 7. Diabetes mellitus type 2. Continue patient on Levemir 27 units at bedtime along with the glimeperide 4 mg orally twice every day, we'll start the patient on sliding scale insulin along with NovoLog 7 units before each meal 3 times every day. 8. Diabetic polyneuropathy. Continue gabapentin 300 mg orally twice every day, for creatinine clearance. 9. Osteoarthritis. Continue tramadol 100 mg orally 3 times every day. 10. PAD. Continue aspirin and atorvastatin for secondary prevention. 11. [facility] on the spear. Medication reconciliation has been reviewed. Impression and plan of care have been directed as dictated by the signing physician. Cayla Arredondo nurse practitioner acting as scribe for signing physician. Objective - Vital Signs Vital signs: Vital Signs Temp 98.4 F 12/24/22 08:59 Pulse 71 12/24/22 08:59 Resp 16 12/24/22 08:59 BP 127/72 12/24/22 10:21 Pulse Ox 95 12/24/22 08:59 FiO2 Intake & Output 12/23/22 12/24/22 12/24/22 18:59 06:59 18:59 Output Total 1000 810 Balance -1000 -810 Weight 136.078 kg Output: Urine 1000 810 Other: # Voids 2 # Bowel Movements 1 - Labs CBC & Chem 7: 12/23/22 07:08 12/24/22 06:04 Labs: Abnormal Lab Results - Last 24 Hours (Table) 12/23/22 12/23/22 12/23/22 Range/Units 07:08 07:08 17:10 RBC 3.32 L (4.40-5.60) X 10*6/uL Hgb 9.8 L (13.0-17.0) g/dL Hct 31.0 L (39.6-50.0) % MCHC 31.6 L (32.0-37.0) g/dL Eosinophils # 0.38 H (0.04-0.35) X 10*3/uL Carbon Dioxide 18.3 L (20.0-27.5) mmol/L BUN 48.9 H (9.0-27.0) mg/dL Creatinine 2.1 H (0.6-1.5) mg/dL Est GFR (CKD-EPI)AfAm 37.8 L (60.0-200.0) Est GFR (CKD-EPI)NonAf 32.7 L (60.0-200.0) BUN/Creatinine Ratio 22.96 H (12.00-20.00) Ratio Glucose 119 H (70-110) mg/dL POC Glucose (mg/dL) 199 H (70-110) mg/dL Magnesium (1.5-2.4) mg/dL AST 38 H (14-35) U/L Albumin 3.4 L (3.8-4.9) g/dL Albumin/Globulin Ratio 1.24 L (1.60-3.17) g/dL 12/23/22 12/24/22 12/24/22 Range/Units 22:01 06:04 06:38 RBC (4.40-5.60) X 10*6/uL Hgb (13.0-17.0) g/dL Hct (39.6-50.0) % MCHC (32.0-37.0) g/dL Eosinophils # (0.04-0.35) X 10*3/uL Carbon Dioxide (20.0-27.5) mmol/L BUN 44.6 H (9.0-27.0) mg/dL Creatinine 1.8 H (0.6-1.5) mg/dL Est GFR (CKD-EPI)AfAm 46.4 L (60.0-200.0) Est GFR (CKD-EPI)NonAf 40.0 L (60.0-200.0) BUN/Creatinine Ratio 24.78 H (12.00-20.00) Ratio Glucose 144 H (70-110) mg/dL POC Glucose (mg/dL) 244 H 143 H (70-110) mg/dL Magnesium 2.7 H (1.5-2.4) mg/dL AST (14-35) U/L Albumin (3.8-4.9) g/dL Albumin/Globulin Ratio (1.60-3.17) g/dL 12/24/22 Range/Units 11:34 RBC (4.40-5.60) X 10*6/uL Hgb (13.0-17.0) g/dL Hct (39.6-50.0) % MCHC (32.0-37.0) g/dL Eosinophils # (0.04-0.35) X 10*3/uL Carbon Dioxide (20.0-27.5) mmol/L BUN (9.0-27.0) mg/dL Creatinine (0.6-1.5) mg/dL Est GFR (CKD-EPI)AfAm (60.0-200.0) Est GFR (CKD-EPI)NonAf (60.0-200.0) BUN/Creatinine Ratio (12.00-20.00) Ratio Glucose (70-110) mg/dL POC Glucose (mg/dL) 153 H (70-110) mg/dL Magnesium (1.5-2.4) mg/dL AST (14-35) U/L Albumin (3.8-4.9) g/dL Albumin/Globulin Ratio (1.60-3.17) g/dL
[2022-12-24 16:55] LABS: Glucose,Whole Blood 143 mg/dL (70-110)
[2022-12-24 20:43] LABS: Glucose,Whole Blood 234 mg/dL (70-110)
[2022-12-25] MEDS: SODIUM CHLORIDE 0.9% 1,000 ML IV SCH (05:52)
[2022-12-25 05:56] LABS: Glucose,Whole Blood 136 mg/dL (70-110)
[2022-12-25] MEDS: INSULIN ASPART (NovoLOG) 100 UNIT/ML VIAL SQ SCH ×7 (05:58→21:55)
[2022-12-25] MEDS: INSULIN DETEMIR (LEVEMIR) 100 UNIT/ML SYR SQ SCH (06:55)
[2022-12-25] MEDS: ENOXAPARIN 30 MG/0.3 ML SYRINGE SQ SCH (09:46)
[2022-12-25] MEDS: traMADol 50 MG TAB PO SCH ×3 (09:46→21:05)
[2022-12-25] MEDS: amLODIPine 5 MG TAB PO SCH (09:47)
[2022-12-25] MEDS: ATORVASTATIN 40 MG TAB PO SCH (09:47)
[2022-12-25] MEDS: GABAPENTIN 300 MG CAP PO SCH ×2 (09:47→21:06)
[2022-12-25] MEDS: GLIMEPIRIDE 4 MG TAB PO SCH ×2 (09:47→21:06)
[2022-12-25] MEDS: METOPROLOL SUCCINATE (ER) 50 MG TAB.ER.24H PO SCH (09:47)
[2022-12-25] MEDS: ASPIRIN 81 MG PO SCH (09:47)
[2022-12-25] MEDS: BACLOFEN 10 MG TAB PO SCH ×2 (09:47→21:06)
--- NOTE | 2022-12-25 10:35 | P.PN ---
Subjective Progress Note Date: 12/25/22 Principal diagnosis: Right proximal tibia and fibula fracture Patient was evaluated at bedside today, he is resting his hospital bed . Patient admits to generalized soreness throughout the right lower extremity. He has no other orthopedic complaints at this time. He currently denies headaches, lightheadedness, chest pain or shortness of breath Objective - Vital Signs Vital signs: Vital Signs Temp 98.2 F 12/25/22 07:51 Pulse 66 12/25/22 07:51 Resp 18 12/25/22 07:51 BP 123/67 12/25/22 07:51 Pulse Ox 92 L 12/25/22 07:51 FiO2 Intake & Output 12/24/22 12/25/22 12/25/22 18:59 06:59 18:59 Output Total 810 1800 Balance -810 -1800 Weight 136.078 kg Output: Urine 810 1800 Other: Voiding Method Urinal - Exam Right lower extremity: Knee immobilizer remains in place, locked in full extension 2 small anterior aspect of the knee also healing at this, no erythema or drainage noted Effusion is present over the knee, there is soft tissue swelling noted in the lower leg Calf is soft, no tenderness with palpation Tenderness with palpation is noted distal to the knee Plantar flexion, dorsiflexion, EHL, FHL are intact Sensory exam to light touch is intact through out the extremity - Labs CBC & Chem 7: 12/23/22 07:08 12/24/22 06:04 Labs: Abnormal Lab Results - Last 24 Hours (Table) 12/24/22 12/24/22 12/24/22 Range/Units 06:04 11:34 16:53 BUN 44.6 H (9.0-27.0) mg/dL Creatinine 1.8 H (0.6-1.5) mg/dL Est GFR (CKD-EPI)AfAm 46.4 L (60.0-200.0) Est GFR (CKD-EPI)NonAf 40.0 L (60.0-200.0) BUN/Creatinine Ratio 24.78 H (12.00-20.00) Ratio Glucose 144 H (70-110) mg/dL POC Glucose (mg/dL) 153 H 143 H (70-110) mg/dL Magnesium 2.7 H (1.5-2.4) mg/dL 12/24/22 12/25/22 Range/Units 20:41 05:54 BUN (9.0-27.0) mg/dL Creatinine (0.6-1.5) mg/dL Est GFR (CKD-EPI)AfAm (60.0-200.0) Est GFR (CKD-EPI)NonAf (60.0-200.0) BUN/Creatinine Ratio (12.00-20.00) Ratio Glucose (70-110) mg/dL POC Glucose (mg/dL) 234 H 136 H (70-110) mg/dL Magnesium (1.5-2.4) mg/dL Assessment and Plan Assessment: Right proximal tibia fracture Right proximal fibula fracture Status post fall Previous right total knee arthroplasty, stable appearing components Other medical comorbidities Plan: Hinged knee brace locked in full extension was reapplied today, this will help prevent skin breakdown. Continue to monitor abrasions over the anterior aspect of the knee DVT prophylaxis, aspirin 81 mg twice a day at discharge Pain control, continue tramadol Nonweightbearing right lower extremity, knee must remain in full extension Internal medicine recommendations appreciated Discharge planning: Awaiting authorization from insurance for subacute rehab Time with Patient: Less than 30
[2022-12-25 11:26] LABS: African American GFR (CKD) 46.4 (60.0-200.0); Anion Gap 14.3 mmol/L (10.00-18.00); BUN/Creat Ratio 22.06 Ratio (12.00-20.00); Blood Urea Nitrogen 39.7 mg/dL (9.0-27.0); Calcium 8.9 mg/dL (8.7-10.3); Carbon Dioxide 18.7 mmol/L (20.0-27.5); Magnesium 2.1 mg/dL (1.5-2.4); Potassium 4.9 mmol/L (3.5-5.5)
[2022-12-25 11:45] LABS: Glucose,Whole Blood 196 mg/dL (70-110)
--- NOTE | 2022-12-25 14:36 | P.PN ---
Subjective Progress Note Date: 12/25/22 HISTORY OF PRESENT ILLNESS: This is a 62-year-old male one of my patient with a previous medical history significant for hypertension and hypertensive cardiovascular disease, hyperlipidemia, diabetes mellitus type 2 with hyperglycemia, chronic kidney disease stage IIIA, PAD, diabetic polyneuropathy, coronary artery disease status post left heart catheterization that was done in July 2020 that showed mild disease of the RCA and the chronic totally occluded proximal to mid LAD and chronic totally occluded left circumflex in the mid to distal portion with mild disease of the intermedius, at that time patient was supposed to go pack to have an attempt to open the LAD however the patient did not he has been following with Dr. Velazco on a regular basis, patient presented to the emergency department at [facility] yesterday because after he sustained a fall at home while he was going to the bathroom using his walker and fortunately he turned around and he felt a popping sensation of his right knee and he landed on the ground he skinned his right knee in the left knee his son Dutch pulled him out of the bathroom all the way to the living room try to put him up on the couch, cold 911 because the patient was not able to bear any weight on the right lower extremity, immediate swelling of the right knee as well as right lower extremity patient did have a right total arthroplasty that in the past, patient was evaluated at [facility] department with an x-ray that showed evidence of Roxanol right tib-fib fracture extending into the prosthetic joint, he was seen and admitted under orthopedic surgery and we were asked to see the patient for medical management patient apparently not able to maneuver himself at home since he has a bad left leg and he cannot bear any pressure in the right lower extremity, beside his the primary caregiver of his who has chronic medical issues. Patient will need to be admitted to the hospital for subacute rehab mentation at this time. 12/20: Patient is sitting up in bed he struggled a lot moving around spied using a sliding board, he has been seen in consultation by physical therapy as well as social sciences instructor, we'll plan to send the patient to [facility] on the spear when the insurance arthritis, his kidney for she does continue to be worsened we will discontinue Farxiga we will adjust gabapentin to 300 mg orally twice every day, discontinue nephrotoxins, continue IV fluid resuscitation the form of normal saline at the 50 mL an hour, ultrasound of the kidneys will be obtained, nephrology consultation. 12/21: Patient is sitting up in the recliner chair in no apparent distress, he denies any chest pain, shortness breath, his creatinine went up to 2.2, his ultrasound of the kidney did not show evidence of hydronephrosis, we discontinued IV fluid, patient will be seen in consultation by nephrology for further evaluation and recommendation, I discontinued his Farxiga completely, monitor the patient very closely. Patient plan is to go to [facility] on [facility] hopefully 12/22: Patient is sitting up in the recliner, currently has an immobilizer to the right lower extremity, continue to have some swelling in both lower extremities, he needed 2 person assist to get to the bathroom, nonweightbearing on the right lower extremity due to the fracture, was seen in consultation by nephrology who recommended to discontinue lisinopril completely, patient has been off Farxiga since yesterday, monitor the patient CMP, avoid nephrotoxic, monitor the patient very closely, continue current pain management, patient would be discharged to [facility] on [facility] hopefully tomorrow. 12/23: The patient is seen today in follow-up. He remains nonweightbearing on the right lower extremity, knee immobilizer in place. He has been afebrile, heart rate in the 60s and 70s, blood pressure 166/82, pulse ox 95% on room air. Repeat blood work reports are pending at the time of this dictation. Lisinopril remains on hold due to acute kidney injury. Also Lasix and potassium on hold. Anticipate discharge to [facility] in the [place] tomorrow morning. 12/24: Patient is scheduled for discharge to [facility] again today for subacute rehab but unfortunately, insurance has denied [id number] evaluation. Patient has subsequently peeled this denial and we are waiting for further information from the insurance company. His kidney function has been improving over the past 2 days and now creatinine is at 1.8. Hemoglobin is 9.8. Capillary blood glucose running between 125 and 284. Patient is to be on aspirin 81 mg twice daily for DVT prophylaxis per orthopedics. Medication reconciliation has been reviewed for anticipated discharge as soon as insurance issue has been resolved. 12/25: Patient is seen today on the [facility] floor. He is still waiting for insurance authorization for subacute rehab. Now we are told there is another number that the patient needs to call for the accelerated appeal process. Patient has competed this with the help of his foster care case manager and now the insurance will give a determination within 72 hours. Patient is nonweightbearing on the right lower extremity. He remains afebrile, heart rate 66, blood pressure 123/67, pulse ox 92% on room air. Capillary blood glucose running between 136 and 234. REVIEW OF SYSTEMS: Constitutional: No documented fever, no chills, no night sweats. No weight change. positive for weakness, positive for fatigue no lethargy. No daytime sleepiness. HEENT: No headache. No blurred vision or double vision, no loss of vision. No loss of Hearing, no ringing in the ears, no dizziness. No nasal drainage or congestion. No epistaxis. No sore throat. Lungs: No shortness of breath, no cough, no sputum production. No wheezing. Reports dyspnea with activity. Cardiovascular: No chest pain, no lower extremity edema. No palpitations. No paroxysmal nocturnal dyspnea. No orthopnea. No lightheadedness or dizziness. No syncopal episodes. Abdominal: Reports no abdominal pain. No nausea, vomiting. No diarrhea. No constipation. No bloody or tarry stools reports loss of appetite. Genitourinary: No dysuria, increased frequency, urgency. No urinary retention. Musculoskeletal: No myalgias. positive for muscle weakness, positive for gait dysfunction, positive for frequent falls. positive for back pain and neck ain neck pain, positive for severe pain in the right knee and leg and can not place pressure on the right leg, knee immobilizer in place Integumentary: Right big toe callus, no lesions. No rash or pruritus. No unusual bruising, change of the right big toenail. Neurologic: No aphasia. No facial droop. No change in mentation. No head injury. No headache. No paralysis. No paresthesia. Psychiatric: No depression. No anxiety. No mood swings. Endocrine: mildly abnormal blood sugars. No weight change. PHYSICAL EXAMINATION: General: 62-year-old male laying down in bed in no distress. HEENT: Head is atraumatic, normocephalic, pupils were equal round reactive to light and recommendation, extraocular muscle movement were intact, sclera nonicteric, conjunctivae were pale, mucous membranes of the mouth are somewhat dry. Neck: Supple, no JVP, normal carotid upstroke bilaterally, no lymphadenopathy. Chest: Decreased breath sounds at the bases, few rhonchi, no expiratory wheezes, no chest wall tenderness, no intercostal retractions. Heart: First heart sound is normal, second heart sounds normal there is no gallop or murmur. Abdomen: Soft, nontender, nondistended, positive bowel sounds. No hepatosplenomegaly Extremities: There is edema in the right more than than the left leg no calf tenderness DP +1 bilaterally, left second toe amputation Neurologic examination: Patient is awake alert and oriented X3, cranial nerves II-12 appear grossly intact, muscle power were 5 out of 5 in upper extremities and 2 out of 5 in bilateral lower extremities, deep tendon could not be evaluated ASSESSMENT AND PLAN: 1. Right proximal fib tib fracture extending into the prosthetic knee . Patient is nonweightbearing of the right lower extremely was seen by orthopedic surgery was recommended for the patient to see physical therapy and to go for subacute rehab patient as he is not able to bear weight on the left lower extremity as well do to significant arthritis of the left knee, maintain knee immobilizer. 2. Acute kidney injury on top of chronic kidney disease stage III. Monitor the patient CMP, avoid nephrotoxin, discontinue lisinopril, discontinue Farxiga 3. Right big toe callus. Stable at this time. 4. Coronary artery disease status post left heart catheterization back in July 2020 that showed chronic totally occluded proximal to mid LAD chronic totally occluded mid total distal LCx mild disease of the intermedius and mild disease of the RCA with heavily calcified vessels. Continue patient on aspirin 81 mg once every day, metoprolol succinate 25 mg orally once every day, atorvastatin 40 mg orally once every day cardiology evaluation is in progress. 5. Hypertension and hypertensive cardiovascular disease. Hold lisinopril 10 mg orally once every day, continue Toprol-XL 25 mg once every day. 6. Hyperlipidemia. Continue low-cholesterol diet and exercise, continue patient on atorvastatin 40 mg orally once every day monitor lipid panel, LDL 55- 70. 7. Diabetes mellitus type 2. Continue patient on Levemir 27 units at bedtime along with the glimeperide 4 mg orally twice every day, we'll start the patient on sliding scale insulin along with NovoLog 7 units before each meal 3 times every day. 8. Diabetic polyneuropathy. Continue gabapentin 300 mg orally twice every day, for creatinine clearance. 9. Osteoarthritis. Continue tramadol 100 mg orally 3 times every day. 10. PAD. Continue aspirin and atorvastatin for secondary prevention. 11. [facility] on the spear. Medication reconciliation has been reviewed. Patient is waiting for insurance authorization. Impression and plan of care have been directed as dictated by the signing physician. Cayla Arredondo nurse practitioner acting as scribe for signing physician. Objective - Vital Signs Vital signs: Vital Signs Temp 98.2 F 12/25/22 07:51 Pulse 66 12/25/22 10:36 Resp 18 12/25/22 10:36 BP 123/67 12/25/22 07:51 Pulse Ox 92 L 12/25/22 07:51 FiO2 Intake & Output 12/24/22 12/25/22 12/25/22 18:59 06:59 18:59 Intake Total 200 Output Total 810 1800 Balance -810 -1800 200 Weight 136.078 kg Intake: Oral 200 Output: Urine 810 1800 Other: Voiding Method Urinal Urinal - Labs CBC & Chem 7: 12/23/22 07:08 12/25/22 06:21 Labs: Abnormal Lab Results - Last 24 Hours (Table) 12/24/22 12/24/22 12/24/22 Range/Units 06:04 11:34 16:53 BUN 44.6 H (9.0-27.0) mg/dL Creatinine 1.8 H (0.6-1.5) mg/dL Est GFR (CKD-EPI)AfAm 46.4 L (60.0-200.0) Est GFR (CKD-EPI)NonAf 40.0 L (60.0-200.0) BUN/Creatinine Ratio 24.78 H (12.00-20.00) Ratio Glucose 144 H (70-110) mg/dL POC Glucose (mg/dL) 153 H 143 H (70-110) mg/dL Magnesium 2.7 H (1.5-2.4) mg/dL 12/24/22 12/25/22 Range/Units 20:41 05:54 BUN (9.0-27.0) mg/dL Creatinine (0.6-1.5) mg/dL Est GFR (CKD-EPI)AfAm (60.0-200.0) Est GFR (CKD-EPI)NonAf (60.0-200.0) BUN/Creatinine Ratio (12.00-20.00) Ratio Glucose (70-110) mg/dL POC Glucose (mg/dL) 234 H 136 H (70-110) mg/dL Magnesium (1.5-2.4) mg/dL
--- NOTE | 2022-12-25 14:45 | P.PN ---
Subjective Patient is seen in follow-up for acute kidney injury on chronic kidney disease. Patient has chronic kidney disease stage IIIa with baseline creatinine near 1.5. Renal function improving. Creatinine 1.8 today. Has been voiding. No hematuria. Hemodynamically stable. No chest pain or shortness of breath. Oral intake is good. Vital signs are stable. General: No acute distress. HEENT: Head exam is unremarkable. LUNGS: No audible rhonchi or wheezes. HEART: Rate and Rhythm are regular. ABDOMEN: Obese. Nontender. EXTREMITITES: No edema. Brace noted. Objective - Vital Signs Vital signs: Vital Signs Temp 98.1 F 12/25/22 13:38 Pulse 71 12/25/22 13:38 Resp 18 12/25/22 13:38 BP 126/71 12/25/22 13:38 Pulse Ox 95 12/25/22 13:38 FiO2 Intake & Output 12/24/22 12/25/22 12/25/22 18:59 06:59 18:59 Intake Total 380 Output Total 810 1800 Balance -810 -1800 380 Weight 136.078 kg Intake: Oral 380 Output: Urine 810 1800 Other: Voiding Method Urinal Urinal - Labs CBC & Chem 7: 12/23/22 07:08 12/25/22 06:21 Labs: Abnormal Lab Results - Last 24 Hours (Table) 12/24/22 12/24/22 12/25/22 Range/Units 16:53 20:41 05:54 Carbon Dioxide (20.0-27.5) mmol/L BUN (9.0-27.0) mg/dL Creatinine (0.6-1.5) mg/dL Est GFR (CKD-EPI)AfAm (60.0-200.0) Est GFR (CKD-EPI)NonAf (60.0-200.0) BUN/Creatinine Ratio (12.00-20.00) Ratio Glucose (70-110) mg/dL POC Glucose (mg/dL) 143 H 234 H 136 H (70-110) mg/dL 12/25/22 12/25/22 Range/Units 06:21 11:44 Carbon Dioxide 18.7 L (20.0-27.5) mmol/L BUN 39.7 H (9.0-27.0) mg/dL Creatinine 1.8 H (0.6-1.5) mg/dL Est GFR (CKD-EPI)AfAm 46.4 L (60.0-200.0) Est GFR (CKD-EPI)NonAf 40.0 L (60.0-200.0) BUN/Creatinine Ratio 22.06 H (12.00-20.00) Ratio Glucose 129 H (70-110) mg/dL POC Glucose (mg/dL) 196 H (70-110) mg/dL Assessment and Plan Plan: Assessment: 1. Acute kidney injury secondary to ATN secondary to hypotension. Creatinine 1.92 on admission and peaked at 2.6 - 1.8 today. UA from October 2022 benign. No hydronephrosis noted on kidney ultrasound. 2. Chronic kidney disease stage IIIa secondary to nephrosclerosis. Baseline creatinine near 1.5. 3. Hypertension with chronic kidney disease. Blood pressure on the lower side this admission. Improved with antihypertensives held. 4. Metabolic acidosis secondary to acute kidney injury. 5. Status post fall with right tibia and fibular fracture. Orthopedic surgery following. 6. Diabetes mellitus. Plan: Lisinopril stopped 12/22/2022. Hold amlodipine for systolic blood pressure less than 120. Encouraged oral intake. Off IV fluids. Avoid nephrotoxins. Continue to monitor renal function and urine output. Farxiga stopped 12/21/2022. Add oral bicarbonate. Advised to follow up outpatient 1 week post discharge.
[2022-12-25 16:32] LABS: Glucose,Whole Blood 140 mg/dL (70-110)
[2022-12-25] MEDS: SODIUM BICARBONATE TAB 650 MG TAB PO SCH (21:06)
[2022-12-25 21:16] LABS: Glucose,Whole Blood 193 mg/dL (70-110)
[2022-12-26 06:15] LABS: Glucose,Whole Blood 131 mg/dL (70-110)
[2022-12-26] MEDS: INSULIN ASPART (NovoLOG) 100 UNIT/ML VIAL SQ SCH ×7 (06:24→21:48)
[2022-12-26] MEDS: ENOXAPARIN 30 MG/0.3 ML SYRINGE SQ SCH (07:49)
[2022-12-26] MEDS: traMADol 50 MG TAB PO SCH ×3 (07:50→21:47)
[2022-12-26] MEDS: INSULIN DETEMIR (LEVEMIR) 100 UNIT/ML SYR SQ SCH ×2 (07:50→11:40)
[2022-12-26] MEDS: ATORVASTATIN 40 MG TAB PO SCH (07:50)
[2022-12-26] MEDS: ASPIRIN 81 MG PO SCH (07:51)
[2022-12-26] MEDS: SODIUM BICARBONATE TAB 650 MG TAB PO SCH ×2 (07:51→21:47)
[2022-12-26] MEDS: METOPROLOL SUCCINATE (ER) 50 MG TAB.ER.24H PO SCH (07:51)
[2022-12-26] MEDS: GABAPENTIN 300 MG CAP PO SCH ×2 (07:51→21:47)
[2022-12-26] MEDS: GLIMEPIRIDE 4 MG TAB PO SCH ×2 (07:51→21:46)
[2022-12-26] MEDS: BACLOFEN 10 MG TAB PO SCH ×2 (07:51→21:46)
[2022-12-26] MEDS: amLODIPine 5 MG TAB PO SCH (07:51)
[2022-12-26 08:49] LABS: African American GFR (CKD) 57.8 (60.0-200.0); Anion Gap 10.5 mmol/L (10.00-18.00); BUN/Creat Ratio 22.13 Ratio (12.00-20.00); Blood Urea Nitrogen 33.2 mg/dL (9.0-27.0); Carbon Dioxide 20.5 mmol/L (20.0-27.5); Magnesium 2.2 mg/dL (1.5-2.4); Non-African American GFR(CKD) 49.9 (60.0-200.0); Potassium 4.7 mmol/L (3.5-5.5)
[2022-12-26 11:16] LABS: Glucose,Whole Blood 162 mg/dL (70-110)
--- NOTE | 2022-12-26 11:26 | P.PN ---
Subjective Progress Note Date: 12/26/22 Principal diagnosis: Right proximal tibia and fibula fracture Patient was evaluated at bedside today, he is resting his hospital bed . We continue to deal with insurance authorization for subacute rehab placement. He has no other orthopedic complaints at this time. He currently denies headaches, lightheadedness, chest pain or shortness of breath Objective - Vital Signs Vital signs: Vital Signs Temp 98.4 F 12/26/22 07:26 Pulse 69 12/26/22 07:52 Resp 17 12/26/22 07:52 BP 124/72 12/26/22 07:26 Pulse Ox 95 12/26/22 07:26 FiO2 Intake & Output 12/25/22 12/26/22 12/26/22 18:59 06:59 18:59 Intake Total 680 Output Total 1300 700 Balance -620 -700 Intake: Oral 680 Output: Urine 1300 700 Other: Voiding Method Urinal Urinal # Voids 2 3 - Exam Right lower extremity: Knee immobilizer remains in place, locked in full extension Optifoam dressing placed after cleaning anterior knee abrasion today at bedside Effusion is present over the knee, there is soft tissue swelling noted in the lower leg Calf is soft, no tenderness with palpation Tenderness with palpation is noted distal to the knee Plantar flexion, dorsiflexion, EHL, FHL are intact Sensory exam to light touch is intact through out the extremity - Labs CBC & Chem 7: 12/23/22 07:08 12/26/22 06:03 Labs: Abnormal Lab Results - Last 24 Hours (Table) 12/25/22 12/25/22 12/25/22 Range/Units 06:21 11:44 16:31 Carbon Dioxide 18.7 L (20.0-27.5) mmol/L BUN 39.7 H (9.0-27.0) mg/dL Creatinine 1.8 H (0.6-1.5) mg/dL Est GFR (CKD-EPI)AfAm 46.4 L (60.0-200.0) Est GFR (CKD-EPI)NonAf 40.0 L (60.0-200.0) BUN/Creatinine Ratio 22.06 H (12.00-20.00) Ratio Glucose 129 H (70-110) mg/dL POC Glucose (mg/dL) 196 H 140 H (70-110) mg/dL 12/25/22 12/26/22 12/26/22 Range/Units 21:15 06:03 06:13 Carbon Dioxide (20.0-27.5) mmol/L BUN 33.2 H (9.0-27.0) mg/dL Creatinine (0.6-1.5) mg/dL Est GFR (CKD-EPI)AfAm 57.8 L (60.0-200.0) Est GFR (CKD-EPI)NonAf 49.9 L (60.0-200.0) BUN/Creatinine Ratio 22.13 H (12.00-20.00) Ratio Glucose 123 H (70-110) mg/dL POC Glucose (mg/dL) 193 H 131 H (70-110) mg/dL 12/26/22 Range/Units 11:15 Carbon Dioxide (20.0-27.5) mmol/L BUN (9.0-27.0) mg/dL Creatinine (0.6-1.5) mg/dL Est GFR (CKD-EPI)AfAm (60.0-200.0) Est GFR (CKD-EPI)NonAf (60.0-200.0) BUN/Creatinine Ratio (12.00-20.00) Ratio Glucose (70-110) mg/dL POC Glucose (mg/dL) 162 H (70-110) mg/dL Assessment and Plan Assessment: Right proximal tibia fracture Right proximal fibula fracture Status post fall Previous right total knee arthroplasty, stable appearing components Other medical comorbidities Plan: Hinged knee brace locked in full extension was reapplied today, this will help prevent skin breakdown. Continue to monitor abrasions over the anterior aspect of the knee DVT prophylaxis, aspirin 81 mg twice a day at discharge Pain control, continue tramadol Nonweightbearing right lower extremity, knee must remain in full extension Internal medicine recommendations appreciated Discharge planning: Awaiting authorization from insurance for subacute rehab Time with Patient: Less than 30
--- NOTE | 2022-12-26 12:59 | P.PN ---
Subjective Progress Note Date: 12/26/22 HISTORY OF PRESENT ILLNESS: This is a 62-year-old male one of my patient with a previous medical history significant for hypertension and hypertensive cardiovascular disease, hyperlipidemia, diabetes mellitus type 2 with hyperglycemia, chronic kidney disease stage IIIA, PAD, diabetic polyneuropathy, coronary artery disease status post left heart catheterization that was done in July 2020 that showed mild disease of the RCA and the chronic totally occluded proximal to mid LAD and chronic totally occluded left circumflex in the mid to distal portion with mild disease of the intermedius, at that time patient was supposed to go pack to have an attempt to open the LAD however the patient did not he has been following with Dr. Velazco on a regular basis, patient presented to the emergency department at [facility] yesterday because after he sustained a fall at home while he was going to the bathroom using his walker and fortunately he turned around and he felt a popping sensation of his right knee and he landed on the ground he skinned his right knee in the left knee his son Dutch pulled him out of the bathroom all the way to the living room try to put him up on the couch, cold 911 because the patient was not able to bear any weight on the right lower extremity, immediate swelling of the right knee as well as right lower extremity patient did have a right total arthroplasty that in the past, patient was evaluated at [facility] department with an x-ray that showed evidence of Roxanol right tib-fib fracture extending into the prosthetic joint, he was seen and admitted under orthopedic surgery and we were asked to see the patient for medical management patient apparently not able to maneuver himself at home since he has a bad left leg and he cannot bear any pressure in the right lower extremity, beside his the primary caregiver of his who has chronic medical issues. Patient will need to be admitted to the hospital for subacute rehab mentation at this time. 12/20: Patient is sitting up in bed he struggled a lot moving around spied using a sliding board, he has been seen in consultation by physical therapy as well as child protective services social worker, we'll plan to send the patient to [facility] on the spear when the insurance arthritis, his kidney for she does continue to be worsened we will discontinue Farxiga we will adjust gabapentin to 300 mg orally twice every day, discontinue nephrotoxins, continue IV fluid resuscitation the form of normal saline at the 50 mL an hour, ultrasound of the kidneys will be obtained, nephrology consultation. 12/21: Patient is sitting up in the recliner chair in no apparent distress, he denies any chest pain, shortness breath, his creatinine went up to 2.2, his ultrasound of the kidney did not show evidence of hydronephrosis, we discontinued IV fluid, patient will be seen in consultation by nephrology for further evaluation and recommendation, I discontinued his Farxiga completely, monitor the patient very closely. Patient plan is to go to [facility] on [facility] [address] hopefully 12/22: Patient is sitting up in the recliner, currently has an immobilizer to the right lower extremity, continue to have some swelling in both lower extremities, he needed 2 person assist to get to the bathroom, nonweightbearing on the right lower extremity due to the fracture, was seen in consultation by nephrology who recommended to discontinue lisinopril completely, patient has been off Farxiga since yesterday, monitor the patient CMP, avoid nephrotoxic, monitor the patient very closely, continue current pain management, patient would be discharged to [facility] on [facility] [address] hopefully tomorrow. 12/23: The patient is seen today in follow-up. He remains nonweightbearing on the right lower extremity, knee immobilizer in place. He has been afebrile, heart rate in the 60s and 70s, blood pressure 166/82, pulse ox 95% on room air. Repeat blood work reports are pending at the time of this dictation. Lisinopril remains on hold due to acute kidney injury. Also Lasix and potassium on hold. Anticipate discharge to [facility] in the [place] tomorrow morning. 12/24: Patient is scheduled for discharge to [facility] again today for subacute rehab but unfortunately, insurance has denied [id number] evaluation. Patient has subsequently peeled this denial and we are waiting for further information from the insurance company. His kidney function has been improving over the past 2 days and now creatinine is at 1.8. Hemoglobin is 9.8. Capillary blood glucose running between 125 and 284. Patient is to be on aspirin 81 mg twice daily for DVT prophylaxis per orthopedics. Medication reconciliation has been reviewed for anticipated discharge as soon as insurance issue has been resolved. 12/25: Patient is seen today on the [facility] floor. He is still waiting for insurance authorization for subacute rehab. Now we are told there is another number that the patient needs to call for the accelerated appeal process. Patient has competed this with the help of his medical case manager and now the insurance will give a determination within 72 hours. Patient is nonweightbearing on the right lower extremity. He remains afebrile, heart rate 66, blood pressure 123/67, pulse ox 92% on room air. Capillary blood glucose running between 136 and 234. 12/26: We are waiting for insurance authorization for rehab. Patient has recieved a call that someone will be contacting him regarding the authorization. Patient remains afebrile, heart rate in the 60s and 70s, blood pressure 124/72, pulse ox 95% on room air. Renal function continues to improve with the BUN 33 creatinine 1.5. Potassium is 4.7 and sodium 140. Capillary blood glucose running between 131 and 193. Nephrology has added oral carbonate. Plan is for follow-up with nephrology in 1 week after discharge. Patient remains nonweightbearing on the right lower extremity with a knee immobilizer in place. He continues to work with PT and OT. REVIEW OF SYSTEMS: Constitutional: No documented fever, no chills, no night sweats. No weight change. positive for weakness, positive for fatigue no lethargy. No daytime sleepiness. HEENT: No headache. No blurred vision or double vision, no loss of vision. No loss of Hearing, no ringing in the ears, no dizziness. No nasal drainage or congestion. No epistaxis. No sore throat. Lungs: No shortness of breath, no cough, no sputum production. No wheezing. Reports dyspnea with activity. Cardiovascular: No chest pain, no lower extremity edema. No palpitations. No paroxysmal nocturnal dyspnea. No orthopnea. No lightheadedness or dizziness. No syncopal episodes. Abdominal: Reports no abdominal pain. No nausea, vomiting. No diarrhea. No constipation. No bloody or tarry stools reports loss of appetite. Genitourinary: No dysuria, increased frequency, urgency. No urinary retention. Musculoskeletal: No myalgias. positive for muscle weakness, positive for gait dysfunction, positive for frequent falls. positive for back pain and neck ain neck pain, positive for severe pain in the right knee and leg and can not place pressure on the right leg, knee immobilizer in place Integumentary: Right big toe callus, no lesions. No rash or pruritus. No unusual bruising, change of the right big toenail. Neurologic: No aphasia. No facial droop. No change in mentation. No head injury. No headache. No paralysis. No paresthesia. Psychiatric: No depression. No anxiety. No mood swings. Endocrine: mildly abnormal blood sugars. No weight change. PHYSICAL EXAMINATION: General: 62-year-old male laying down in bed in no distress. HEENT: Head is atraumatic, normocephalic, pupils were equal round reactive to light and recommendation, extraocular muscle movement were intact, sclera nonicteric, conjunctivae were pale, mucous membranes of the mouth are somewhat dry. Neck: Supple, no JVP, normal carotid upstroke bilaterally, no lymphadenopathy. Chest: Decreased breath sounds at the bases, few rhonchi, no expiratory wheezes, no chest wall tenderness, no intercostal retractions. Heart: First heart sound is normal, second heart sounds normal there is no gallop or murmur. Abdomen: Soft, nontender, nondistended, positive bowel sounds. No hepatosplenomegaly Extremities: There is edema in the right more than than the left leg no calf tenderness DP +1 bilaterally, left second toe amputation Neurologic examination: Patient is awake alert and oriented X3, cranial nerves II-12 appear grossly intact, muscle power were 5 out of 5 in upper extremities and 2 out of 5 in bilateral lower extremities, deep tendon could not be evaluated ASSESSMENT AND PLAN: 1. Right proximal fib tib fracture extending into the prosthetic knee . Patient is nonweightbearing of the right lower extremely was seen by orthopedic surgery was recommended for the patient to see physical therapy and to go for subacute rehab patient as he is not able to bear weight on the left lower extremity as well do to significant arthritis of the left knee, maintain knee immobilizer. 2. Acute kidney injury on top of chronic kidney disease stage III, improved. Monitor the patient CMP, avoid nephrotoxin, discontinue lisinopril, discontinue Farxiga 3. Right big toe callus. Stable at this time. 4. Coronary artery disease status post left heart catheterization back in July 2020 that showed chronic totally occluded proximal to mid LAD chronic totally occluded mid total distal LCx mild disease of the intermedius and mild disease of the RCA with heavily calcified vessels. Continue patient on aspirin 81 mg once every day, metoprolol succinate 25 mg orally once every day, atorvastatin 40 mg orally once every day cardiology evaluation is in progress. 5. Hypertension and hypertensive cardiovascular disease. Hold lisinopril 10 mg orally once every day, continue Toprol-XL 25 mg once every day. 6. Hyperlipidemia. Continue low-cholesterol diet and exercise, continue patient on atorvastatin 40 mg orally once every day monitor lipid panel, LDL 55- 70. 7. Diabetes mellitus type 2. Continue patient on Levemir 27 units at bedtime along with the glimeperide 4 mg orally twice every day, we'll start the patient on sliding scale insulin along with NovoLog 7 units before each meal 3 times every day. 8. Diabetic polyneuropathy. Continue gabapentin 300 mg orally twice every day, for creatinine clearance. 9. Osteoarthritis. Continue tramadol 100 mg orally 3 times every day. 10. PAD. Continue aspirin and atorvastatin for secondary prevention. 11. [facility] on the [facility]. Medication reconciliation has been reviewed. Shabbir lozano is waiting for insurance authorization. Impression and plan of care have been directed as dictated by the signing physician. Cayla Arredondo nurse practitioner acting as scribe for signing phys ician. Objective - Vital Signs Vital signs: Vital Signs Temp 98.4 F 12/26/22 07:26 Pulse 69 12/26/22 07:52 Resp 17 12/26/22 07:52 BP 124/72 12/26/22 07:26 Pulse Ox 95 12/26/22 07:26 FiO2 Intake & Output 12/25/22 12/26/22 12/26/22 18:59 06:59 18:59 Intake Total 680 Output Total 1300 700 Balance -620 -700 Intake: Oral 680 Output: Urine 1300 700 Other: Voiding Method Urinal Urinal # Voids 2 3 - Labs CBC & Chem 7: 12/23/22 07:08 12/26/22 06:03 Labs: Abnormal Lab Results - Last 24 Hours (Table) 12/25/22 12/25/22 12/25/22 Range/Units 06:21 11:44 16:31 Carbon Dioxide 18.7 L (20.0-27.5) mmol/L BUN 39.7 H (9.0-27.0) mg/dL Creatinine 1.8 H (0.6-1.5) mg/dL Est GFR (CKD-EPI)AfAm 46.4 L (60.0-200.0) Est GFR (CKD-EPI)NonAf 40.0 L (60.0-200.0) BUN/Creatinine Ratio 22.06 H (12.00-20.00) Ratio Glucose 129 H (70-110) mg/dL POC Glucose (mg/dL) 196 H 140 H (70-110) mg/dL 12/25/22 12/26/22 12/26/22 Range/Units 21:15 06:03 06:13 Carbon Dioxide (20.0-27.5) mmol/L BUN 33.2 H (9.0-27.0) mg/dL Creatinine (0.6-1.5) mg/dL Est GFR (CKD-EPI)AfAm 57.8 L (60.0-200.0) Est GFR (CKD-EPI)NonAf 49.9 L (60.0-200.0) BUN/Creatinine Ratio 22.13 H (12.00-20.00) Ratio Glucose 123 H (70-110) mg/dL POC Glucose (mg/dL) 193 H 131 H (70-110) mg/dL
--- NOTE | 2022-12-26 13:10 | P.PN ---
Subjective Patient is seen in follow-up for acute kidney injury on chronic kidney disease. Patient has chronic kidney disease stage IIIa with baseline creatinine near 1.5. Renal function improving. Creatinine 1.5 today. Has been voiding. No hematuria. Hemodynamically stable. No chest pain or shortness of breath. Oral intake is good. Vital signs are stable. General: No acute distress. HEENT: Head exam is unremarkable. LUNGS: No audible rhonchi or wheezes. HEART: Rate and Rhythm are regular. ABDOMEN: Obese. Nontender. EXTREMITITES: No edema. Brace noted. Objective - Vital Signs Vital signs: Vital Signs Temp 98.4 F 12/26/22 07:26 Pulse 69 12/26/22 07:52 Resp 17 12/26/22 07:52 BP 124/72 12/26/22 07:26 Pulse Ox 95 12/26/22 07:26 FiO2 Intake & Output 12/25/22 12/26/22 12/26/22 18:59 06:59 18:59 Intake Total 680 Output Total 1300 700 Balance -620 -700 Intake: Oral 680 Output: Urine 1300 700 Other: Voiding Method Urinal Urinal # Voids 2 3 - Labs CBC & Chem 7: 12/23/22 07:08 12/26/22 06:03 Labs: Abnormal Lab Results - Last 24 Hours (Table) 12/25/22 12/25/22 12/26/22 Range/Units 16:31 21:15 06:03 BUN 33.2 H (9.0-27.0) mg/dL Est GFR (CKD-EPI)AfAm 57.8 L (60.0-200.0) Est GFR (CKD-EPI)NonAf 49.9 L (60.0-200.0) BUN/Creatinine Ratio 22.13 H (12.00-20.00) Ratio Glucose 123 H (70-110) mg/dL POC Glucose (mg/dL) 140 H 193 H (70-110) mg/dL 12/26/22 12/26/22 Range/Units 06:13 11:15 BUN (9.0-27.0) mg/dL Est GFR (CKD-EPI)AfAm (60.0-200.0) Est GFR (CKD-EPI)NonAf (60.0-200.0) BUN/Creatinine Ratio (12.00-20.00) Ratio Glucose (70-110) mg/dL POC Glucose (mg/dL) 131 H 162 H (70-110) mg/dL Assessment and Plan Plan: Assessment: 1. Acute kidney injury secondary to ATN secondary to hypotension. Creatinine 1.92 on admission and peaked at 2.6 - 1.5 today. UA from October 2022 benign. No hydronephrosis noted on kidney ultrasound. 2. Chronic kidney disease stage IIIa secondary to nephrosclerosis. Baseline creatinine near 1.5. 3. Hypertension with chronic kidney disease. Blood pressure on the lower side this admission. Improved with antihypertensives held. 4. Metabolic acidosis secondary to acute kidney injury. On oral bicarb. Improved. 5. Status post fall with right tibia and fibular fracture. Orthopedic surgery following. 6. Diabetes mellitus. Plan: Lisinopril stopped 12/22/2022. Hold amlodipine for systolic blood pressure less than 120. Encouraged oral intake. Off IV fluids. Avoid nephrotoxins. Continue to monitor renal function and urine output. Farxiga stopped 12/21/2022. Advised to follow up outpatient 1 week post discharge.
[2022-12-26 16:37] LABS: Glucose,Whole Blood 153 mg/dL (70-110)
[2022-12-26 20:42] LABS: Glucose,Whole Blood 198 mg/dL (70-110)
[2022-12-27 05:59] LABS: Glucose,Whole Blood 118 mg/dL (70-110)
[2022-12-27] MEDS: INSULIN ASPART (NovoLOG) 100 UNIT/ML VIAL SQ SCH ×4 (06:21→12:42)
[2022-12-27] MEDS: INSULIN DETEMIR (LEVEMIR) 100 UNIT/ML SYR SQ SCH (07:49)
[2022-12-27] MEDS: GABAPENTIN 300 MG CAP PO SCH (07:50)
[2022-12-27] MEDS: METOPROLOL SUCCINATE (ER) 50 MG TAB.ER.24H PO SCH (07:50)
[2022-12-27] MEDS: traMADol 50 MG TAB PO SCH (07:50)
[2022-12-27] MEDS: ASPIRIN 81 MG PO SCH (07:50)
[2022-12-27] MEDS: amLODIPine 5 MG TAB PO SCH (07:51)
[2022-12-27] MEDS: ENOXAPARIN 30 MG/0.3 ML SYRINGE SQ SCH (07:51)
[2022-12-27] MEDS: BACLOFEN 10 MG TAB PO SCH (07:51)
[2022-12-27] MEDS: ATORVASTATIN 40 MG TAB PO SCH (07:51)
[2022-12-27] MEDS: GLIMEPIRIDE 4 MG TAB PO SCH (07:51)
[2022-12-27] MEDS: SODIUM BICARBONATE TAB 650 MG TAB PO SCH (07:54)
[2022-12-27 11:58] LABS: Glucose,Whole Blood 127 mg/dL (70-110)
--- NOTE | 2022-12-27 12:24 | P.PN ---
Subjective Patient is seen in follow-up for acute kidney injury on chronic kidney disease. Patient has chronic kidney disease stage IIIa with baseline creatinine near 1.5. Renal function improving. Creatinine 1.5 as of yesterday. Has been voiding. No hematuria. Hemodynamically stable. No chest pain or shortness of breath. Oral intake is good. Vital signs are stable. General: No acute distress. HEENT: Head exam is unremarkable. LUNGS: No audible rhonchi or wheezes. HEART: Rate and Rhythm are regular. ABDOMEN: Obese. Nontender. EXTREMITITES: No edema. Brace noted. Objective - Vital Signs Vital signs: Vital Signs Temp 98.3 F 12/27/22 07:25 Pulse 69 12/27/22 08:23 Resp 17 12/27/22 08:23 BP 123/68 12/27/22 07:25 Pulse Ox 93 L 12/27/22 07:25 FiO2 Intake & Output 12/26/22 12/27/22 12/27/22 18:59 06:59 18:59 Output Total 350 975 Balance -350 -975 Output: Urine 350 975 Other: Voiding Method Urinal Urinal # Voids 3 - Labs CBC & Chem 7: 12/23/22 07:08 12/26/22 06:03 Labs: Abnormal Lab Results - Last 24 Hours (Table) 12/26/22 12/26/22 12/27/22 Range/Units 16:35 20:40 05:56 POC Glucose (mg/dL) 153 H 198 H 118 H (70-110) mg/dL 12/27/22 Range/Units 11:52 POC Glucose (mg/dL) 127 H (70-110) mg/dL Assessment and Plan Plan: Assessment: 1. Acute kidney injury secondary to ATN secondary to hypotension. Creatinine 1.92 on admission and peaked at 2.6 - 1.5 yesterday. UA from October 2022 benign. No hydronephrosis noted on kidney ultrasound. 2. Chronic kidney disease stage IIIa secondary to nephrosclerosis. Baseline creatinine near 1.5. 3. Hypertension with chronic kidney disease. Blood pressure on the lower side this admission. Improved with antihypertensives held. 4. Metabolic acidosis secondary to acute kidney injury. On oral bicarb. Improved. 5. Status post fall with right tibia and fibular fracture. Orthopedic surgery following. 6. Diabetes mellitus. Plan: Hold amlodipine for systolic blood pressure less than 120. Encouraged oral intake. Avoid nephrotoxins. Continue to monitor renal function and urine output. Advised to follow up outpatient 1 week post discharge.
--- NOTE | 2022-12-27 12:25 | P.DS ---
Providers Date of admission: 12/18/22 16:56 Expected date of discharge: 12/27/22 Attending physician: Ever Biggs Consults: 12/18/22 16:56 Consult Physician Routine Consulting Provider: Lewis Wing Consult Reason/Comments: Medical care Do you want consulting provider notified?: Already Contacted 12/21/22 11:16 Consult Physician Urgent Consulting Provider: Sarah Escalona Consult Reason/Comments: JARED/CKD3b Do you want consulting provider notified?: Yes Primary care physician: Lewis Wing Hospital Course: Date of admission: 12/18/2022 Date of discharge: 12/27/2022 Admission diagnosis: Right proximal tibia/fibula fracture Discharge diagnosis: Same Attending physician: Dr. Biggs Surgical procedures: none Brief history: Patient is a 62-year-old male with a history of right proximal tibia/fibula fracture status post fall. At this point patient has failed conservative treatment measures and has opted to proceed with a elective non- operative intervention. Hospital course: Patient's orthopeidc and medical care was provided daily. Patient had daily laboratory tests performed for evaluation of overall blood counts. Patient had daily physical therapy to include strengthening range of motion as well as education with ambulation. Patient was treated with [aspirin] for their postoperative DVT prophylaxis during their inpatient stay. Patient showed satisfactory progress with physical therapy. Patient moved steadily through the program and had no difficulty meeting the goals Given patient's otherwise satisfactory course and having met physical therapy goals, plan is to discharge patient to rehab Discharge condition/disposition: Patient will be discharged rehab in stable condition. Discharge medications: Instructions are given on resumption of patient's normal daily medications per primary care recommendation, in addition patient will be prescribed tramadol; gabapentin; aspirin. Orthopedic discharge instructions: 1. Nonweightbearing right lower extremity 2. Utilize hinge knee brace at all times 3. Please pad hinge knee brace to help with skin breakdown 4. [facility] Assessment: Right proximal tibia/fibula fracture Procedures: None Patient Condition at Discharge: Good Plan - Discharge Summary New Discharge Prescriptions: New Gabapentin 600 mg PO BID #30 tab INSULIN ASPART (NovoLOG) [NovoLOG (formulary)] 0 unit SQ ACHS each traMADol HCL 50 mg PO Q6H #21 tab Sennosides/Docusate Sodium [Senna Plus 8.6-50 mg Softgel] 1 each PO DAILY #20 capsule Insulin Detemir (Levemir) [Levemir] 27 unit SQ DAILY@0700 each INSULIN ASPART (NovoLOG) [NovoLOG (formulary)] 7 unit SQ AC-TID each Aspirin [Adult Low Dose Aspirin EC] 81 mg PO BID #60 tab Continue Baclofen 10 mg PO BID Glimepiride [Amaryl] 4 mg PO BID traMADol HCL 100 mg PO TID Atorvastatin Calcium [Lipitor] 40 mg PO DAILY Metoprolol Succinate (ER) [Toprol XL] 50 mg PO DAILY #90 tab Potassium Chloride ER [K-Dur 20] 20 meq PO DAILY Furosemide [Lasix] 40 mg PO DAILY amLODIPine [Norvasc] 5 mg PO DAILY #0 Changed Aspirin EC [Ecotrin Low Dose] 81 mg PO BID #0 Discontinued Gabapentin 600 mg PO BID lisinopriL [Zestril] 10 mg PO DAILY #90 tab Discharge Medication List Baclofen 10 mg PO BID 07/19/20 [History] Glimepiride [Amaryl] 4 mg PO BID 07/19/20 [History] Atorvastatin Calcium [Lipitor] 40 mg PO DAILY 10/20/21 [History] traMADol HCL 100 mg PO TID 10/20/21 [History] Metoprolol Succinate (ER) [Toprol XL] 50 mg PO DAILY #90 tab 10/23/21 [Rx] Furosemide [Lasix] 40 mg PO DAILY 12/18/22 [History] Potassium Chloride ER [K-Dur 20] 20 meq PO DAILY 12/18/22 [History] Gabapentin 600 mg PO BID #30 tab 12/20/22 [Rx] Sennosides/Docusate Sodium [Senna Plus 8.6-50 mg Softgel] 1 each PO DAILY #20 capsule 12/20/22 [Rx] traMADol HCL 50 mg PO Q6H #21 tab 12/20/22 [Rx] INSULIN ASPART (NovoLOG) [NovoLOG (formulary)] 0 unit SQ ACHS each 12/23/22 [Rx] INSULIN ASPART (NovoLOG) [NovoLOG (formulary)] 7 unit SQ AC-TID each 12/23/22 [Rx] Insulin Detemir (Levemir) [Levemir] 27 unit SQ DAILY@0700 each 12/23/22 [Rx] Aspirin EC [Ecotrin Low Dose] 81 mg PO BID #0 12/24/22 [Rx] amLODIPine [Norvasc] 5 mg PO DAILY #0 12/24/22 [Rx] Aspirin [Adult Low Dose Aspirin EC] 81 mg PO BID #60 tab 12/27/22 [Rx] Follow up Appointment(s)/Referral(s): Lewis Wing MD [Primary Care Provider] - 1 Week (at [facility]) Ever Biggs DO [Doctor of Osteopathic Medicine] - 01/08/23 3:00 pm Odell Jerry DO [STAFF PHYSICIAN] - 1 Week Ambulatory/Diagnostic Orders: Complete Blood Count w/diff [LAB.AMB] Location: None Selected Comprehensive Metabolic Panel [LAB.AMB] Location: None Selected Activity/Diet/Wound Care/Special Instructions: Orthopedic discharge instructions: 1. Nonweightbearing right lower extremity 2. Utilize hinge knee brace at all times 3. Please pad hinge knee brace to help with skin breakdown 4. Plan for [facility]-up at [facility] 10 days Discharge Disposition: TRANSFER TO SNF/ECF
--- NOTE | 2022-12-27 13:25 | P.PN ---
Subjective Progress Note Date: 12/27/22 Principal diagnosis: Right proximal tibia/fibula fracture Patient was seen at bedside is morning sitting up in chair with hinge brace on and right knee in full extension. Patient says he has been doing better. Patient says he is leaning forward to going to rehab later today. Patient denies chest pain, fever, shortness of breath, nausea, vomiting, change in vision, loss of bowel/bladder control. Objective - Vital Signs Vital signs: Vital Signs Temp 98.3 F 12/27/22 07:25 Pulse 69 12/27/22 08:23 Resp 17 12/27/22 08:23 BP 123/68 12/27/22 07:25 Pulse Ox 93 L 12/27/22 07:25 FiO2 Intake & Output 12/26/22 12/27/22 12/27/22 18:59 06:59 18:59 Output Total 350 975 Balance -350 -975 Output: Urine 350 975 Other: Voiding Method Urinal Urinal # Voids 3 - Exam Right knee is in full extension with hinge brace on. There is surgical dressing just distal to the anterior right knee. Negative for any significant ecchymosis/erythema/ulcers. Patient has full range of motion bilateral upper extremities and left lower extremity on exam. Right lower extremity exam limited due to patient's injury and being in a brace. 5/5 in all major motor groups in bilateral upper extremities and left lower extremity on exam. Cap refill under 3 seconds in digits upper extremities. Negative Homans bilaterally. Radial pulses intact, 2+ bilaterally. There is some tenderness to patient along the right knee in the proximal tibial region - Labs CBC & Chem 7: 12/23/22 07:08 12/26/22 06:03 Labs: Abnormal Lab Results - Last 24 Hours (Table) 12/26/22 12/26/22 12/27/22 Range/Units 16:35 20:40 05:56 POC Glucose (mg/dL) 153 H 198 H 118 H (70-110) mg/dL 12/27/22 Range/Units 11:52 POC Glucose (mg/dL) 127 H (70-110) mg/dL Assessment and Plan Assessment: 1. Right proximal tibia/fibula fracture 2. History right total knee arthroplasty Plan: 1. Right proximal tibia/fibula fracture - patient stable at bedside this morning with hinge brace on full extension. Discharge to rehab this afternoon. Patient to remain nonweightbearing right lower extremity in hinge brace 2. Appreciate medical management 3. Pain management - tramadol; gabapentin; [place] 4. GI prophylaxis - senna 5. DVT prophylaxis - aspirin 6. PT/OT - nonweightbearing right lower extremity 7. Encourage incentive spirometer use 8. Discharge planning - discharge to rehab today. Time with Patient: Less than 30
[2022-12-27 14:25] VITALS: BP 141/71; PULSE 70; RESP 16; TEMP 97.9
--- NOTE | 2022-12-31 08:39 | CDI ---
Documentation Clarification Form Date: 12/31/22 From: Anu Holt Admit Date: 12/18/2022 4:56:00 PM Patient Name: Alex Jara Visit Number: [id number] Discharge Date: 12/27/2022 3:15:00 PM ATTENTION: The Clinical Documentation Specialists (CDI) and [facility] Coding Staff appreciate your assistance in clarifying documentation. Please respond to the clarification below the line at the bottom and electronically sign. The CDI & [facility] Coding staff will review the response and follow-up if needed. Please note: Queries are made part of the Legal Health Record. If you have any questions, please contact the author of this message via ITS. Dr. Odell Jerry, Your patient has the documented diagnosis of unspecified CHF per your consult. Additional information regarding the [type, acuity] of CHF is requested. History/Risk Factors: CAD w total occlusion of coronary artery, T2DM w PAD, neuropathy & CKD Stage 3b & HTN, ATN Clinical Indicators: "He does have history of CHF with ejection fraction of 45%." VS/Pulse OX: T 98.0, P 72, R 18, BP 104/71, O2 Sat 96 BNP: None 10/20/21 Echocardiogram Results: Overall left ventricular systolic function is mildly impaired with EF 45%. Chest X Ray: none Treatment: Furosemide 40 mg PO In your professional opinion, can you please clarify the [acuity and type] of CHF if known? [x ] Chronic Systolic Heart Failure (reduced EF) [ ] Chronic Diastolic Heart Failure [ ] Chronic Diastolic Heart Failure (preserved EF) [ ] Chronic Systolic & Diastolic Heart Failure [ ] Other, please specify [ ] Unable to determine MTDD
== END 2022-12-27 15:15 | DRG 562 ==
LOC: EC 13:20 → 4SSUR 16:56
PROVIDERS: ADMIT Orthopaedic Surgery; ATTEND Orthopaedic Surgery
PROC: 3E0234Z Introduction of Serum, Toxoid and Vaccine into Muscle, Percutaneous Approach (ICD-10-PCS; principal; 2022-12-18)
DX: S82.102A Unspecified fracture of upper end of left tibia, initial encounter for closed fracture (principal); N17.0 Acute kidney failure with tubular necrosis; M97.11XA Periprosthetic fracture around internal prosthetic right knee joint, initial encounter; I13.0 Hypertensive heart and chronic kidney disease with heart failure and stage 1 through stage 4 chronic kidney disease, or unspecified chronic kidney disease; E87.20 Acidosis, unspecified; I50.22 Chronic systolic (congestive) heart failure; E11.42 Type 2 diabetes mellitus with diabetic polyneuropathy; E11.51 Type 2 diabetes mellitus with diabetic peripheral angiopathy without gangrene; E11.22 Type 2 diabetes mellitus with diabetic chronic kidney disease; I95.9 Hypotension, unspecified; I25.10 Atherosclerotic heart disease of native coronary artery without angina pectoris; N18.32 Chronic kidney disease, stage 3b; Z89.422 Acquired absence of other left toe(s); S82.831A Other fracture of upper and lower end of right fibula, initial encounter for closed fracture; Z28.310 Unvaccinated for COVID-19; Z23 Encounter for immunization; S80.211A Abrasion, right knee, initial encounter; I25.82 Chronic total occlusion of coronary artery; M19.90 Unspecified osteoarthritis, unspecified site; E78.5 Hyperlipidemia, unspecified; G47.30 Sleep apnea, unspecified; L84 Corns and callosities; M62.838 Other muscle spasm; Z79.82 Long term (current) use of aspirin; Z79.84 Long term (current) use of oral hypoglycemic drugs; Z79.899 Other long term (current) drug therapy; W01.0XXA Fall on same level from slipping, tripping and stumbling without subsequent striking against object, initial encounter; Y92.029 Unspecified place in mobile home as the place of occurrence of the external cause
CPT/HCPCS: 76770; 80048; 80053; 83735; 85025; 90471; 90715; 96374; 99285

== ENCOUNTER → 2023-07-30 | Outpatient (CLI) | payer MEDICARE ==
--- NOTE | 2023-07-30 17:03 | US ---
EXAMINATION TYPE: US arterial LE single level DATE OF EXAM: 07/30/2023 3:30 PM CLINICAL INDICATION: Male, 63 years old with history of I73.9 pad; PAD History of: Smoker: No Hypertension: No Diabetic: Yes Hyperlipidemia: Yes TIA/CVA: TIA Previous Vascular Surgery: No CAD: No NV: No Vascular Ulcers: prior on right 2nd digit, since has been amputated Claudication: No Gangrene: No Doppler Waveforms: Right: Multiphasic Left: Multiphasic Right Brachial Pressure: 84 Left Brachial Pressure: 92 Ankle-Brachial Indices: Right: 1.5 Left: 1.8 Toe Brachial Indices: Right: 1.0 Left: 0.9 exam is largely unchanged from previous on (11/06/2022), consider CTA IMPRESSION: 1. Monophasic waveforms within the distal digits. Triphasic waveforms through the remaining visualize d arterial system. Stenosis proximal to the ankle may be present. CTA could be performed for addition al evaluation ratios do not support this finding.
== END | disposition home or self-care (01) ==
LOC: RADUSWWP 14:05
PROVIDERS: ATTEND Internal Medicine
DX: I73.9 Peripheral vascular disease, unspecified (principal)
CPT/HCPCS: 93922